=== PATIENT | female | born 1990 | race Caucasian/White ===

== ENCOUNTER → 2022-12-11 11:44 | Outpatient (CLI) | payer OTHER, SELFPAY ==
[2022-12-11 13:22] LABS: Appearance Urine UA CLEAR; Bilirubin Urine UA NEGATIVE (NEGATIVE); Glucose Urine UA NEGATIVE (Negative); Ketones Urine UA NEGATIVE (NEGATIVE); Leukocyte Esterase Urine UA NEGATIVE (NEGATIVE); Nitrite Urine UA NEGATIVE (Negative); Occult Blood Urine UA NEGATIVE (Negative); Protein Urine UA NEGATIVE (Negative); Specific Gravity Urine UA <=1.005 (1.000-1.035); Urobilinogen Urine UA 0.2 E.U./dL (0.2)
[2022-12-11 13:24] LABS: Color Urine UA STRAW; pH Urine UA 6.5 (4.5-8.0)
== END ==
PROVIDERS: PCP Nurse Practitioner Family; Visit Provider Family Medicine
DX: Z34.81 Encounter for supervision of other normal pregnancy, first trimester (principal)
CPT/HCPCS: 81003; 87086

== ENCOUNTER → 2022-12-11 12:38 | Outpatient (CLI) | payer OTHER, SELFPAY ==
[2022-12-11 13:56] LABS: Add Manual Diff / Slide Review NO; Basophils Absolute Auto 0 /uL (0-100); Basophils Percent Auto 0.3 % (0-2); Eosinophils Absolute Auto 100 /uL (0-450); Eosinophils Percent Auto 0.8 % (2-4); Hematocrit 41.4 % (36-46); Hemoglobin 14.2 g/dL (12.0-16.0); Lymphocytes Absolute Auto 2100 /uL (1100-4500); Lymphocytes Percent Auto 27.8 % (25-40); Mean Corpuscular HGB Conc 34.2 % (30-36); Mean Corpuscular Hemoglobin 30.5 PG (26-34); Mean Corpuscular Volume 89.3 fL (80-100); Monocytes Absolute Auto 500 /uL (0-900); Monocytes Percent Auto 6.1 % (3-14); Neutrophils Absolute Auto 4800 /uL (1500-7000); Platelet Count 227 X10^3/uL (150-400); Red Blood Cell Count 4.64 X10^6/uL (4.0-5.2); Red Cell Distribution Width 12.9 % (11.6-14.8); White Blood Cell Count 7.4 X10^3/uL (4.5-11.0)
[2022-12-11 14:06] LABS: BUN Creatinine Ratio 17.4 (6-22); Blood Urea Nitrogen 8 mg/dL (7-17); Calcium 10.6 mg/dL (8.4-10.2); Carbon Dioxide 24 mmol/L (22-32); Chloride 103 mmol/L (98-107); Estimated Glomerular Filt Rate > 60 mL/min (>60); Glucose 83 mg/dL (70-100); HEMOLYSIS < 15 (0-50); Potassium 3.8 mmol/L (3.4-5.1); Sodium 137 mmol/L (137-145)
[2022-12-11 18:28] LABS: HIV 1 & 2 Ab/Ag 4th Gen Combo NEGATIVE (NEGATIVE); Hep C Virus Ab w/Reflex Quant NEGATIVE s/c (NEGATIVE); Hepatitis B Surface Antigen NEGATIVE s/c (NEGATIVE); Rubella Antibody IgG 50.9 IU/mL (>15)
[2022-12-12 07:35] LABS: RPR Screen Non Reactive (Non Reactive)
[2022-12-12 08:10] LABS: Varicella IgG Antibody <135 index (Immune >165)
== END ==
PROVIDERS: PCP Nurse Practitioner Family; Referring Provider Family Medicine; Visit Provider Family Medicine
DX: Z34.81 Encounter for supervision of other normal pregnancy, first trimester (principal); E89.2 Postprocedural hypoparathyroidism
CPT/HCPCS: 36415; 80048; 80055; 81003; 86787; 86803; 86850; 86900; 86901; 87086; 87389

== ENCOUNTER → 2023-04-14 10:22 | Outpatient (CLI) | payer OTHER, SELFPAY ==
--- NOTE | 2023-04-14 10:23 | DI.US.S_ITS ---
PROCEDURE: US OB LIMITED INDICATIONS: LARGE GESTATIONAL AGE. PRIORS IN BRAZIL. OUTSIDE/PRIOR DATING DATA: Last menstrual period (LMP): Unknown LMP-based estimated date of delivery (HENRIETTA): Unknown First dating scan (date and location): Not available Estimated date of delivery (HENRIETTA) from first dating scan: Not available The calculations are made using the working HENRIETTA of 07/04/2023. TECHNIQUE: Real-time scanning was performed of the fetus, with image documentation and biometric measurements. Endovaginal scanning: Performed. COMPARISON: None. FINDINGS: General: A single living intrauterine gestation is present. Presentation: Vertex Placenta: Placental position is anterior, without previa. Amniotic fluid index: 19.9 cm, normal range is 5-24 cm. Single deepest vertical pocket is 6.5 cm. heart rate: 162 beats per minute. Maternal cervical canal: 2.4 cm long. Normal lower limit is 2.5 cm. biometrics: Biparietal diameter: 7.6 cm, 30 weeks, 3 days. Head circumference: 27.7 cm, 30 weeks, 2 days. Abdominal circumference: 25.0 cm, 29 weeks, 1 day. Femur length: 5.2 cm, 27 weeks, 6 days. Clinically estimated gestational age: 28 weeks, 3 days. Composite gestational age from present scan: 29 weeks, 3 days. Estimated weight and percentile: 1311 g, 57%. stomach, bilateral kidneys and urinary bladder are visualized and are within normal limits. IMPRESSION: 1. Single live intrauterine gestation with fetus in vertex presentation. Normal amount of amniotic fluid. heart rate is 162 beats per minute. Normal growth. Estimated weight is at 57%. 2. Mildly shortened maternal cervical canal length as above. Cervix is closed. Clinical correlation and follow-up is recommended. We strive to produce accurate, complete, and clear reports of imaging services. To assist us in improving patient care, this report was composed using standard report templates and voice recognition software. Therefore, it may contain abnormal punctuation, insertions and/or omissions. Occasional wrong-word or sound-alike substitutions may occur. Though we review the report and make efforts to correct it, we do recommend that the report be read carefully in proper context to recognize any text inaccuracies. Dictated by: Jeremias Mckenzie M.D. on 04/14/2023 at 10:23 Approved by: Jeremias Mckenzie M.D. on 04/14/2023 at 10:26
== END ==
PROVIDERS: PCP Nurse Practitioner Family; Referring Provider Family Medicine; Visit Provider Family Medicine
DX: O36.63X0 Maternal care for excessive fetal growth, third trimester, not applicable or unspecified (principal); Z3A.29 29 weeks gestation of pregnancy
CPT/HCPCS: 76815; 76817

== ENCOUNTER → 2023-04-16 09:52 | Outpatient (CLI) | payer OTHER, SELFPAY | PROVIDERS: PCP Nurse Practitioner Family; Visit Provider Family Medicine | DX: R39.9 Unspecified symptoms and signs involving the genitourinary system (principal) | CPT/HCPCS: 87086 ==

== ENCOUNTER → 2023-05-28 15:12 | Outpatient (CLI) | payer OTHER, SELFPAY | PROVIDERS: PCP Nurse Practitioner Family; Visit Provider Family Medicine | DX: O23.40 Unspecified infection of urinary tract in pregnancy, unspecified trimester (principal); Z3A.00 Weeks of gestation of pregnancy not specified | CPT/HCPCS: 87086; 87210 ==

== ENCOUNTER → 2023-06-11 12:30 | Outpatient (CLI) | payer OTHER, SELFPAY ==
[2023-06-12 13:05] LABS: Strep Grp B PCR NEG for Grp B Strep
== END ==
PROVIDERS: PCP Nurse Practitioner Family; Visit Provider Family Medicine
DX: Z34.83 Encounter for supervision of other normal pregnancy, third trimester (principal); Z3A.36 36 weeks gestation of pregnancy
CPT/HCPCS: 87653

== ENCOUNTER 2023-06-23 12:12 | Outpatient (CLI) | payer OTHER, SELFPAY ==
--- NOTE | 2023-06-23 12:32 | P.TNLD_ITS ---
Visit Information Visit Information Date of evaluation: 06/23/23 Primary OB Provider: Maribel Peterson Reason for Evaluation: Yes non-stress test Comments/Additional reasons for admission: 32yo at 38w4d here for NST for elevated blood pressure in clinic. No headaches, vision changes, LE edema, RUQ pain. She is feeling her baby move regularly. [facility] Medical History (Updated 06/23/23 @ 12:33 by Maribel Peterson MD) Parathyroid adenoma PCOS (polycystic ovarian syndrome) Surgical History (Updated 12/03/22 @ 08:38 by Kasia Doyle, RN) H/O parathyroidectomy (~10/15/22) H/O wrist surgery (~07/18/20) History of tonsillectomy and adenoidectomy (~2000) Hx of appendectomy (~2003) [place] teeth extracted (~2004) Family History (Updated 12/03/22 @ 08:42 by Kasia Doyle, RN) Father Diabetes mellitus Hypertriglyceridemia Mother Diabetes mellitus H/O bariatric surgery Hypertension Mental health disorder Family/Other Heart disease Heart attack Grandfather Heart disease Heart attack Grandfather Diabetes mellitus Family/Other Mental health disorder Social History marital status: number of children: 1 lives independently: Yes caregiver/support person: Yes [facility]) pets and animals: Yes (1 dog; aware of toxo precautions) education level: college (sp's degree) current occupational exposures/hazards: No special francis needs: No seatbelt use: always water heater temp set < 120 deg: Yes working smoke detector in home: Yes fire extinguisher in home: Yes carbon monox detector in home: Yes firearms in home: No do you feel safe at home: Yes Smoking Status: Never smoker second hand exposure: No alcohol intake: former (rarely when not ) during the past year weight has: decreased > 10 lbs (intentional w/ diet and exercise) daily servings fruits/ve-4 caffeine: Yes (aware of 200mg limit) frequency: 5-6 times per week duration: > 90 minutes/day Evaluation Evaluation Baseline heart rate: 150 Variability: Moderate (11-25) monitor accelerations: Present Monitor Decelerations: Absent Category of Tracing: Reactive Diagnosis, Plan/Disposition Final Diagnosis (1) Elevated blood pressure affecting in third trimester, antepartum: Status: Acute Plan/Disposition Plan: 32yo at 38w4d here for NST for elevated blood pressure in clinic. BP normal range in L&D. NST reactive. Stable for d/c home. OB Disposition: home
== END 2023-06-23 12:50 | disposition home or self-care (01) ==
LOC: LABOR 12:47 → OB 06-28 06:32
PROVIDERS: PCP Family Medicine; Referring Provider Family Medicine; Visit Provider Family Medicine
DX: O26.893 Other specified pregnancy related conditions, third trimester (principal); R03.0 Elevated blood-pressure reading, without diagnosis of hypertension; Z3A.38 38 weeks gestation of pregnancy
CPT/HCPCS: 59025; G0378; G0379

== ENCOUNTER 2023-07-01 10:19 | Inpatient (IN) | payer OTHER, SELFPAY ==
[2023-07-01] MEDS: OXYTOCIN PREMIX 30 UNIT/500 ML PLAST..BAG 220 UNIT IV (11:08)
--- NOTE | 2023-07-01 11:30 | P.HPOB_ITS ---
OB HPI Date/Time Date of admission: 07/01/23 History of Present Condition Chief complaint: OB CHECK HENRIETTA Calculator Estimated Delivery Date Method Current WG Current Estimate 07/04/23 Manual 39w 5d Final HENRIETTA - HARSH Other Estimates 06/21/23 LMP (Certain) 41w 4d 07/04/23 Ultrasound #1 39w 5d Estimated Gestational Age (weeks): 39w4d : 2 Para: 1 Narrative: Pt is a 32yo at 39w4d who presented with regular painful contractions. Contractions started approximately 2 hrs prior to presentation. No vaginal bleeding or LOF. She is feeling her baby move regularly. No complications with . care: good care, initiated at week # (10) and pounds weight gain (17) Dating criteria OB: based on 1st trimester US only Ultrasounds: normal 1st trimester US and normal mid trimester US Obstetrical complications: none Medical complications OB: none Preadmission Labs Last OB Lab Results: Blood Type A Positive 12/11/22 12:53 Antibody Screen Negative 12/11/22 12:53 Hematocrit 41.4 % (36-46) 12/11/22 12:53 Hemoglobin 14.2 g/dL (12.0-16.0) 12/11/22 12:53 Hepatitis B Surface Antigen Negative s/c (NEGATIVE) 12/11/22 12 :53 Hepatitis C Antibody Negative s/c (NEGATIVE) 12/11/22 12:53 Rubella Antibody 50.9 IU/mL (>15) 12/11/22 12:53 Varicella-Zoster IgG Antibody <135 index (Immune >165) L 12:53 Group B Streptococcus (PCR) Neg for grp b strep 06/11/23 12:30 -: Urine: negative External Labs -: Urine: negative Prior (ies) Past Pregnancies Del. Date GA/Weeks Labor Lgth Wt Sex Route Outcome Anesthesia Place Delv Breastfeed Preg Comp Name 01/20/11 38+ 9 8 lb 1 oz Male vaginal live - full ter [facility] 9 months other [place] Delivery Date: 01/20/11 Last Updated by: Kasia Doyle RN 2-vessel cord Evaluation Evaluation Baseline heart rate: 140 Variability: Moderate (11-25) monitor accelerations: Present Monitor Decelerations: Absent Contraction Frequency (minutes): 2 Uterine Contraction Intensity: Strong/Firm Status: Category l Dilation (cm): 10 Effacement (%): 100 station: +1 [facility] Medical History (Updated 06/23/23 @ 12:33 by Maribel Peterson MD) Parathyroid adenoma PCOS (polycystic ovarian syndrome) Surgical History (Updated 12/03/22 @ 08:38 by Kasia Doyle RN) H/O parathyroidectomy (~10/15/22) H/O wrist surgery (~07/18/20) History of tonsillectomy and adenoidectomy (~2000) Hx of appendectomy (~2003) [place] teeth extracted (~2004) Family History (Updated 12/03/22 @ 08:42 by Kasia Doyle, MOR) Father Diabetes mellitus Hypertriglyceridemia Mother Diabetes mellitus H/O bariatric surgery Hypertension Mental health disorder Family/Other Heart disease Heart attack Grandfather Heart disease Heart attack Grandfather Diabetes mellitus Family/Other Mental health disorder Social History marital status: number of children: 1 lives independently: Yes caregiver/support person: Yes housing: [facility]) pets and animals: Yes (1 dog; aware of toxo precautions) education level: college (sp's degree) current occupational exposures/hazards: No special francis needs: No seatbelt use: always water heater temp set < 120 deg: Yes working smoke detector in home: Yes fire extinguisher in home: Yes carbon monox detector in home: Yes firearms in home: No do you feel safe at home: Yes Smoking Status: Never smoker second hand exposure: No alcohol intake: former (rarely when not ) during the past year weight has: decreased > 10 lbs (intentional w/ diet and exercise) daily servings fruits/ve-4 caffeine: Yes (aware of 200mg limit) frequency: 5-6 times per week duration: > 90 minutes/day Meds Home Medications and Allergies Home Medications Medication Instructions Recorded Confirmed Type cholecalciferol (vitamin D3) 25 25 mcg PO DAILY 12/03/22 07/01/23 History mcg (1,000 unit) capsule prenat.vits,verona,[id number] 1 tab PO DAILY 12/03/22 07/01/23 History glucometer test strips #14 ea 04/20/23 07/01/23 Rx lancet #14 ea 04/20/23 07/01/23 Rx metronidazole 500 mg tablet 500 mg PO BID #14 tabs 04/30/23 07/01/23 Rx triamcinolone acetonide 0.1 % 1 applic topical BID #80 grams 05/14/23 07/01/23 Rx topical ointment fluconazole 150 mg tablet 150 mg PO DAILY #1 tab 05/31/23 07/01/23 Rx (Diflucan) hands-free electric breast pump #1 ea 06/07/23 07/01/23 Rx Allergies Allergy/AdvReac Type Severity Reaction Status Date / Time lactose AdvReac Mild Headache Verified 06/23/23 11:43 OB Exam Narrative Exam Narrative: Gen: NAD, laying in bed moaning CV: RRR, no murmurs Resp: clear to auscultation bilaterally Abd: soft, nontender, gravid Ext: no edema Assessment and Plan Assessment and Plan Assessment and Plan narrative: 32yo at 39w4d here in active labor. GBS negative, Rh positive. - Expectant management, anticipate - FHT reassuring - GBS negative, no prophylaxis indicated - Will start pushing now
--- NOTE | 2023-07-01 11:31 | PM.OBPRVD ---
Labor & Delivery Delivery date: 07/01/23 Intrapartal Events: Precipitous Labor < 3 hours Cervical ripening method: none Induction method: none Delivery augmentation: rupture of membranes Delivery monitor: external FHT and external uterine Route of delivery: Episiotomy description: None L&D Laceration Description: Labial Quantitative Blood Loss: 300 Anesthesia Type: Other (Nitrous oxide) Complications: None Narrative: PROCEDURE: at 39w4d presented in active labor and was admitted to Labor and Delivery. The patient progressed through the 1st stage over 2 hours. ROM occured at 10:58 with clear fluid. Pain was controlled with nitrous oxide and natural methods. The patient progressed through the 2nd stage over 18 minutes and delivered a viable male with APGARs 9/9 at 11:03 via without complications. The cord was cut and clamped after it stopped pulsating. The placenta delivered with gentle cord traction, and appeared complete. The perineum and vagina were inspected with right labial laceration noted but not repaired as it was hemostatic. Needle and sponge counts were correct.? The vagina was inspected and no items were left in situ. Jordyn was doing well with Artur, her and her at bedside. PREPROCEDURE DIAGNOSIS: Intrauterine at 39w4d GBS negative RH positive POSTPROCEDURE DIAGNOSIS: Intrauterine at 39w4d, delivered Same as preprocedure Baby 1: Infant gender: Male Presentation: vertex Position: Right Occiput Anterior Placenta delivery description: Spontaneous Cord Vessel Description: 3 Vessels score (1 min): 9 score (5 min): 9 weight: 9 lb 2.528 oz Plan for aftercare: Routine care
[2023-07-01] MEDS: IBUPROFEN 600 MG TABLET PO ×2 (12:28→19:11)
[2023-07-01 13:01] VITALS: BP 138/85
[2023-07-01] MEDS: ACETAMINOPHEN 325 MG TABLET 650 MG PO ×2 (16:30→22:46)
[2023-07-02] MEDS: IBUPROFEN 600 MG TABLET PO ×3 (01:01→14:04)
[2023-07-02] MEDS: ACETAMINOPHEN 325 MG TABLET 650 MG PO ×2 (04:25→10:02)
[2023-07-02] MEDS: DOCUSATE 100 MG CAPSULE PO (09:36)
[2023-07-02] MEDS: PRENATAL VIT,CALC/IRON/FOLIC 1 TABLET 1 TAB PO (09:36)
--- NOTE | 2023-07-02 12:37 | P.DS_ITS ---
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 AROM was performed with clear fluid minutes prior to delivery. There were no significant lacerations. , there were no complications. At the time of discharge she was voiding, ambulating, and passing flatus without difficulty. Her lochia was decreasing appropriately. Her pain was well controlled. She will f/u in 6 weeks for check. She is with good latch. She is undecided regarding contraception. Peripartum Data Infant Delivery Method: Natural Vaginal Laceration Description: Labial Episiotomy description: None Procedures: Spontaneous vaginal delivery complications: none 1: Gender: Male Disposition of : home Discharge Diagnosis (1) Spontaneous vaginal delivery: Status: Acute Time Spent with Patient Time attestation: Total time spent providing and/or coordinating discharge services: Exam Narrative Exam Narrative: Gen: NAD, sitting comfortably in bed, appears well CV: RRR, no murmurs Resp: clear to auscultation bilaterally Abd: soft, appropriately tender, fundus firm and below the umbilicus, nondistended Ext: no edema Discharge Plan Discharge Plan Patient Disposition: Home Discharge orders & Medications Prescriptions: New acetaminophen 325 mg Tablet 650 mg PO Q6HR PRN (Reason: Pain, Mild (1-3)) Qty: 30 0RF docusate sodium 100 mg Capsule 100 mg PO DAILY Qty: 30 0RF ibuprofen 600 mg Tablet 600 mg PO Q6HR PRN (Reason: Pain, Mild (1-3)) Qty: 30 0RF Continued prenat.vits,verona,[id number] Tablet 1 tab PO DAILY cholecalciferol (vitamin D3) 25 mcg (1,000 unit) capsule 25 mcg PO DAILY Discontinued metronidazole 500 mg tablet 500 mg PO BID Qty: 14 0RF triamcinolone acetonide 0.1 % ointment 1 applic topical BID Qty: 80 0RF Rx Instructions: please use this in replacement of the rx of 0.05% strength fluconazole [Diflucan] 150 mg tablet 150 mg PO DAILY Qty: 1 0RF No Action (DME) glucometer test strips See Rx Instructions .Route .MEDSUPPLY Qty: 14 0RF Rx Instructions: test twice daily for two weeks (DME) lancet See Rx Instructions .Route .MEDSUPPLY Qty: 14 0RF Rx Instructions: to be tested twice daily for 2 weeks (DME) hands-free electric breast pump See Rx Instructions .Route .MEDSUPPLY Qty: 1 0RF Rx Instructions: Due date 07/04/23 Follow up/Referrals: Maribel Peterson MD [Primary Care Provider] - 08/11/23 2:30 pm Diet/Activity/Treatments Diet: Diet as Tolerated and Regular Skin/Wound/Dressing Care Report to your healthcare provider any signs of infection, such as:: chills, fever, increased pain and unusual drainage Visit Report/Discharge Packet Instructions: DI for Labor and Delivery, Vaginal Stand Alone Forms: Patient Portal/API, Stroke Signs & Symptoms Discharge Data Primary Care Provider: Maribel Peterson
[2023-07-02 15:25] VITALS: BP 120/78; PULSE 80; RESP 16; TEMP 36.9
== END 2023-07-02 17:35 | disposition home or self-care (01) | DRG 807 ==
PROVIDERS: Admitting Provider Family Medicine; PCP Family Medicine; Referring Provider Family Medicine; Visit Provider Family Medicine
DX: O62.3 Precipitate labor (principal); Z37.0 Single live birth; Z3A.39 39 weeks gestation of pregnancy
CPT/HCPCS: 36415; 59050; 59410; G0379; J2590

== ENCOUNTER → 2023-07-06 12:11 | Outpatient (CLI) | payer OTHER, SELFPAY ==
[2023-07-06 12:56] LABS: Add Manual Diff / Slide Review NO; Basophils Absolute Auto 0 /uL (0-100); Basophils Percent Auto 0.7 % (0-2); Eosinophils Absolute Auto 100 /uL (0-450); Eosinophils Percent Auto 1.8 % (2-4); Hematocrit 29.7 % (36-46); Hemoglobin 10.4 g/dL (12.0-16.0); Lymphocytes Absolute Auto 1700 /uL (1100-4500); Mean Corpuscular HGB Conc 34.8 % (30-36); Mean Corpuscular Hemoglobin 30.2 PG (26-34); Mean Corpuscular Volume 86.6 fL (80-100); Monocytes Absolute Auto 400 /uL (0-900); Monocytes Percent Auto 5.9 % (3-14); Neutrophils Absolute Auto 4200 /uL (1500-7000); Neutrophils Percent Auto 65.6 % (50-75); Platelet Count 219 X10^3/uL (150-400); Red Blood Cell Count 3.43 X10^6/uL (4.0-5.2); Red Cell Distribution Width 13.8 % (11.6-14.8); White Blood Cell Count 6.4 X10^3/uL (4.5-11.0)
[2023-07-06 13:52] LABS: Alanine Aminotransferase 54 IU/L (<35); Albumin 3.3 g/dL (3.5-5.0); Albumin Globulin Ratio 1.1 (1.0-2.8); Alkaline Phosphatase 94 U/L (38-126); Aspartate Aminotransferase 34 IU/L (14-36); BUN Creatinine Ratio 19.2 (6-22); Bilirubin Total 0.2 mg/dL (0.2-1.3); Blood Urea Nitrogen 10 mg/dL (7-17); Carbon Dioxide 24 mmol/L (22-32); Chloride 108 mmol/L (98-107); Estimated Glomerular Filt Rate > 60 mL/min (>60); Globulin 2.9 g/dL (1.7-4.1); Glucose 89 mg/dL (70-100); HEMOLYSIS < 15 (0-50); Potassium 4.1 mmol/L (3.4-5.1); Sodium 136 mmol/L (137-145); Total Protein 6.2 g/dL (6.3-8.2)
[2023-07-06 17:00] LABS: Creatinine Urine Random 27.1 mg/dL
[2023-07-06 17:04] LABS: Microalbumi Creatinin Ratio Ur 73.8 ug/mg CR (<30)
[2023-07-07 18:34] LABS: Creatinine Urine Random 27.8 mg/dL; Protein (Total) Urine Random 20 mg/dL (0-12); Protein Creatinine Ratio Urine 0.71 GRAM/24H
== END ==
PROVIDERS: PCP Family Medicine; Referring Provider Family Medicine; Visit Provider Family Medicine
DX: O14.95 Unspecified pre-eclampsia, complicating the puerperium (principal)
CPT/HCPCS: 36415; 80053; 82043; 82570; 84156; 85025

== ENCOUNTER 2023-07-07 21:57 | Emergency (ER) | payer OTHER, MEDICAID, SELFPAY ==
[2023-07-07 22:01] VITALS: BP 151/91; PULSE 66; RESP 18; TEMP 36.9; O2SAT 99
[2023-07-07 22:10] VITALS: BP 147/94
[2023-07-07 22:53] LABS: Add Manual Diff / Slide Review NO; Basophils Absolute Auto 0 /uL (0-100); Basophils Percent Auto 0.8 % (0-2); Eosinophils Absolute Auto 100 /uL (0-450); Eosinophils Percent Auto 1.9 % (2-4); Hematocrit 29.3 % (36-46); Hemoglobin 10.2 g/dL (12.0-16.0); Lymphocytes Absolute Auto 2300 /uL (1100-4500); Lymphocytes Percent Auto 36.4 % (25-40); Mean Corpuscular HGB Conc 34.8 % (30-36); Mean Corpuscular Hemoglobin 30.3 PG (26-34); Mean Corpuscular Volume 86.9 fL (80-100); Monocytes Absolute Auto 400 /uL (0-900); Monocytes Percent Auto 6.4 % (3-14); Neutrophils Absolute Auto 3400 /uL (1500-7000); Neutrophils Percent Auto 54.5 % (50-75); Platelet Count 234 X10^3/uL (150-400); Red Blood Cell Count 3.37 X10^6/uL (4.0-5.2); Red Cell Distribution Width 13.7 % (11.6-14.8); White Blood Cell Count 6.2 X10^3/uL (4.5-11.0)
[2023-07-07 22:59] LABS: Alanine Aminotransferase 49 IU/L (<35); Albumin 3.3 g/dL (3.5-5.0); Albumin Globulin Ratio 1.1 (1.0-2.8); Alkaline Phosphatase 89 U/L (38-126); Aspartate Aminotransferase 31 IU/L (14-36); BUN Creatinine Ratio 14.5 (6-22); Bilirubin Total 0.2 mg/dL (0.2-1.3); Blood Urea Nitrogen 10 mg/dL (7-17); Calcium 8.8 mg/dL (8.4-10.2); Carbon Dioxide 24 mmol/L (22-32); Chloride 106 mmol/L (98-107); Estimated Glomerular Filt Rate > 60 mL/min (>60); Glucose 94 mg/dL (70-100); HEMOLYSIS < 15 (0-50); Potassium 3.9 mmol/L (3.4-5.1); Sodium 134 mmol/L (137-145); Total Protein 6.3 g/dL (6.3-8.2)
[2023-07-07 23:36] LABS: RBC Urine 30-100/HPF (0-5/HPF)
[2023-07-07 23:37] VITALS: BP 135/70; PULSE 63; RESP 16; TEMP 36.6; O2SAT 97
[2023-07-07 23:37] LABS: Bacteria Urine Few (2-10); Culture Indicated Urine Specimen Cultured; Squamous Epithelial Cell Urine 0-1 /HPF (0-5/HPF); Transitional Epi Cells Urine 1-5/HPF (0-5/HPF); WBC Urine 10-30/HPF (0-5/HPF)
[2023-07-08] MEDS: cefTRIAXone 1,000 MG in SODIUM CHLORIDE 0.9% 100 ML 200 MG IV (00:07)
[2023-07-08 00:21] VITALS: BP 146/86; PULSE 57; RESP 16; TEMP 36.7; O2SAT 97
--- NOTE | 2023-07-08 00:25 | ED.ABDPAIN ---
HPI - Abdominal Pain General Chief Complaint: Abdominal Pain Stated Complaint: body shakes, 6 days post Time Seen by Provider: 07/07/23 23:56 Source: patient Mode of arrival: Ambulatory History of Present Illness HPI narrative: Patient is 33-year-old female , post day 6. Presents today with body shakes abdominal pain. She was noted to be mildly hypertensive with OB in instructed to take her blood pressure at home. She reports that she is having some sharp shooting pain across her lower abdomen. She reports that the bleeding has basically resolved. She is had some sweats and chills but is afebrile here. Not needing anything for pain. She has some burning sensation with urination. Related Data Home Medications Medication Instructions Recorded Confirmed cholecalciferol (vitamin D3) 25 25 mcg PO DAILY 12/03/22 07/01/23 mcg (1,000 unit) capsule prenat.vits,verona,[id number] 1 tab PO DAILY 12/03/22 07/01/23 Previous Rx's Medication Instructions Recorded glucometer test strips #14 ea 04/20/23 lancet #14 ea 04/20/23 hands-free electric breast pump #1 ea 06/07/23 acetaminophen 325 mg tablet 650 mg PO Q6HR PRN Pain, Mild 07/02/23 (1-3) #30 tabs docusate sodium 100 mg capsule 100 mg PO DAILY #30 caps 07/02/23 ibuprofen 600 mg tablet 600 mg PO Q6HR PRN Pain, Mild 07/02/23 (1-3) #30 tabs cephalexin 500 mg capsule 500 mg PO BID 7 days #14 caps 07/08/23 Allergies Allergy/AdvReac Type Severity Reaction Status Date / Time lactose AdvReac Mild Headache Verified 06/23/23 11:43 Review of Systems Review of Systems ROS Unobtainable: All systems reviewed & are unremarkable except as noted in HPI and below Patient History Medical History (Updated 07/08/23 @ 00:40 by Barbara Garner DO) Parathyroid adenoma PCOS (polycystic ovarian syndrome) Surgical History (Updated 12/03/22 @ 08:38 by Kasia Doyle RN) H/O parathyroidectomy (~10/15/22) H/O wrist surgery (~07/18/20) History of tonsillectomy and adenoidectomy (~2000) Hx of appendectomy (~2003) [place] teeth extracted (~2004) Family History (Updated 12/03/22 @ 08:42 by Kasia Doyle RN) Father Diabetes mellitus Hypertriglyceridemia Mother Diabetes mellitus H/O bariatric surgery Hypertension Mental health disorder Family/Other Heart disease Heart attack Grandfather Heart disease Heart attack Grandfather Diabetes mellitus Family/Other Mental health disorder Social History marital status: number of children: 1 lives independently: Yes caregiver/support person: Yes housing: condominium ([facility]) pets and animals: Yes (1 dog; aware of toxo precautions) education level: college (sp's degree) current occupational exposures/hazards: No special francis needs: No seatbelt use: always water heater temp set < 120 deg: Yes working smoke detector in home: Yes fire extinguisher in home: Yes carbon monox detector in home: Yes firearms in home: No do you feel safe at home: Yes Smoking Status: Never smoker second hand exposure: No alcohol intake: former (rarely when not ) during the past year weight has: decreased > 10 lbs (intentional w/ diet and exercise) daily servings fruits/ve-4 caffeine: Yes (aware of 200mg limit) frequency: 5-6 times per week duration: > 90 minutes/day Smoking Status: Never smoker Substance Use Type: does not use Exam Initial Vital Signs Initial Vital Signs: Vital Signs Temperature 98.4 F 07/07/23 22:01 Pulse Rate 66 07/07/23 22:01 Respiratory Rate 18 07/07/23 22:01 Blood Pressure 151/91 H 07/07/23 22:01 Pulse Oximetry 99 07/07/23 22:01 Oxygen Delivery Method Room Air 07/07/23 22:01 GENERAL: Alert well-appearing 33-year-old female HEENT: Head atraumatic,EOMI, pupils reactive, face symmetric, moist mucous membranes CARDIOVASCULAR: Regular rate and rhythm without murmurs, rubs or gallops. RESPIRATORY: Breath sounds equal bilaterally, no wheezes rales or rhonchi. ABDOMEN: Soft, minimal lower abdominal pain Normoactive bowel sounds all 4 quadrants. No guarding or rebound. : No CVA tenderness EXTREMITIES: Normal range of motion, no clubbing or edema. Neurovascularly intact NEUROLOGICAL: Alert and oriented x4. SKIN: Warm, dry, no laceration, no petechiae, no rashes or lesions. Course Orders Ordered: ED Orders 07/07/23 22:35 CBC Auto Diff [Complete Blood Count AUTO DIFF] Stat CMP [Comprehensive Metabolic Panel] Stat 07/07/23 22:40 Urine Culture Stat Urine Microscopic Stat Discontinued Medications Ceftriaxone Sodium 1,000 mg/ (Sodium Chloride) 100 mls @ 200 mls/hr IV NOW ONE Stop: 07/07/23 23:57 Last Infusion: 07/08/23 00:43 Dose: 0 mls/hr Documented By: Admin: 07/08/23 00:07 Dose: 200 mls/hr Documented By: ANDREW Vital Signs Vital signs: Vital Signs - 8 hr 07/07/23 22:01 07/07/23 22:10 07/07/23 23:37 Temperature 98.4 F 97.8 F Pulse Rate 66 63 Respiratory Rate 18 16 Blood Pressure 151/91 H 147/94 H 135/70 Pulse Oximetry 99 97 Oxygen Delivery Method Room Air Room Air 07/08/23 00:21 Temperature 98.1 F Pulse Rate 57 L Respiratory Rate 16 Blood Pressure 146/86 H Pulse Oximetry 97 Oxygen Delivery Method Room Air MDM - Abdominal Pain Lab Data 07/07/23 22:35 07/07/23 22:35 Labs: Lab Results 07/07/23 07/07/23 07/07/23 Range/Units 22:35 22:35 22:40 WBC 6.2 (4.5-11.0) X10^3/uL RBC 3.37 L (4.0-5.2) X10^6/uL Hgb 10.2 L (12.0-16.0) g/dL Hct 29.3 L (36-46) % MCV 86.9 (80-100) fL MCH 30.3 (26-34) PG MCHC 34.8 (30-36) % RDW 13.7 (11.6-14.8) % Plt Count 234 (150-400) X10^3/uL Neut % (Auto) 54.5 (50-75) % Lymph % (Auto) 36.4 (25-40) % [place] % (Auto) 6.4 (3-14) % Eos % (Auto) 1.9 L (2-4) % Baso % (Auto) 0.8 (0-2) % Neut # (Auto) 3400 (8361-1195) /uL Lymph # (Auto) 2300 (4579-0131) /uL [place] # (Auto) 400 (0-900) /uL Eos # (Auto) 100 (0-450) /uL Baso # (Auto) 0 (0-100) /uL Sodium 134 L (137-145) mmol/L Potassium 3.9 (3.4-5.1) mmol/L Chloride 106 (98-107) mmol/L Carbon Dioxide 24 (22-32) mmol/L BUN 10 (7-17) mg/dL Creatinine 0.69 (0.52-1.04) mg/dL Estimated GFR > 60 (>60) mL/min BUN/Creatinine Ratio 14.5 (6-22) Glucose 94 (70-100) mg/dL Calcium 8.8 (8.4-10.2) mg/dL Total Bilirubin 0.2 (0.2-1.3) mg/dL AST 31 (14-36) IU/L ALT 49 H (<35) IU/L Alkaline Phosphatase 89 (38-126) U/L Total Protein 6.3 (6.3-8.2) g/dL Albumin 3.3 L (3.5-5.0) g/dL Globulin 3.0 (1.7-4.1) g/dL Albumin/Globulin Ratio 1.1 (1.0-2.8) Urine RBC 30-100/hpf H (0-5/HPF) Urine WBC 10-30/hpf H (0-5/HPF) Ur Squamous Epith Cells 0-1 /hpf (0-5/HPF) Ur Transition Epith Cell 1-5/hpf (0-5/HPF) Urine Bacteria Few (2-10) H (None) Ur Culture Indicated? Specimen cultured Point of care testing: Urine Dip Bedside Urine Glucose Negative Bedside Urine Bilirubin - Negative Bedside Urine Ketone - Negative Urine Specific [place] 1.010 Bedside Urine Occult Blood +++ Bedside Urine pH 6 Bedside Urine Protein - Negative Bedside Urine Urobilinogen - Negative Bedside Urine Nitrite - Negative Bedside Urine Leukocytes ++ 125 Esterase MDM Narrative Medical decision making narrative: Patient healthy 33-year-old female presenting 6 days post . She does have leukocytes and bacteria in her urine consistent with UTI. She is noted to have elevated blood pressure which is fairly consistent in the 140s 150s. However she has no other lab abnormalities to suggest preeclampsia. She is not have headache or visual changes. Likely more of a gestational hypertension. According to notes her OB is where the blood pressure who is actually instructed today by the automotive internet sales consultant to monitor her blood pressure. Given 1 dose of Rocephin and she has no evidence of sepsis. I suspect more UTI rather than an endometritis. Discharge Plan Departure Patient Disposition: Home Clinical Impression: UTI (urinary tract infection), Hypertension in , condition Instructions: High Blood Pressure, DI for Urinary Tract Infection (UTI) Activity Restrictions/Additional Instructions: *You have been diagnosed with UTI, hypertension *What to do: At this time symptoms are likely related to bladder infection. You were given 1 dose of IV antibiotics you can start the pills tomorrow. Please continue to monitor your blood pressure 1 to 2 times daily and follow-up with Dr. Platt as scheduled on Wednesday *Continue to take medications as directed Keflex 500 mg twice a day for 5 days *Follow up with your primary care provider in 2-3 days or call [phone] *Return to ER if you should have increasing pain fever, or any new, worsening or concerning symptoms Prescriptions: New cephalexin 500 mg capsule 500 mg PO BID 7 Days Qty: 14 0RF No Action (DME) glucometer test strips See Rx Instructions .Route .MEDSUPPLY Qty: 14 0RF Rx Instructions: test twice daily for two weeks (DME) lancet See Rx Instructions .Route .MEDSUPPLY Qty: 14 0RF Rx Instructions: to be tested twice daily for 2 weeks (DME) hands-free electric breast pump See Rx Instructions .Route .MEDSUPPLY Qty: 1 0RF Rx Instructions: Due date 07/04/23 prenat.vits,verona,[id number] Tablet 1 tab PO DAILY cholecalciferol (vitamin D3) 25 mcg (1,000 unit) capsule 25 mcg PO DAILY acetaminophen 325 mg Tablet 650 mg PO Q6HR PRN (Reason: Pain, Mild (1-3)) Qty: 30 0RF docusate sodium 100 mg Capsule 100 mg PO DAILY Qty: 30 0RF ibuprofen 600 mg Tablet 600 mg PO Q6HR PRN (Reason: Pain, Mild (1-3)) Qty: 30 0RF Referrals: Maribel Peterson MD [Primary Care Provider] - Stand Alone Forms: Patient Portal/API
== END 2023-07-08 01:04 | disposition home or self-care (01) ==
PROVIDERS: Emergency Provider Emergency Medicine; PCP Family Medicine
DX: O16.5 Unspecified maternal hypertension, complicating the puerperium (principal); N39.0 Urinary tract infection, site not specified
CPT/HCPCS: 36415; 80053; 81003; 81015; 85025; 87086; 96365; 99284; J0696

== ENCOUNTER → 2023-10-19 09:34 | Outpatient (CLI) | payer OTHER, MEDICAID, SELFPAY | PROVIDERS: Family Provider Family Medicine; PCP Family Medicine; Visit Provider Family Medicine | DX: N39.0 Urinary tract infection, site not specified (principal) | CPT/HCPCS: 81002; 87086 ==

== ENCOUNTER → 2023-10-26 10:30 | Outpatient (CLI) | payer OTHER, MEDICAID, SELFPAY ==
--- NOTE | 2023-10-26 10:31 | DI.US.S_ITS ---
PROCEDURE: US PELVIC COMPLETE INDICATIONS: PELVIC TENDERNESS TECHNIQUE: Real-time scanning was performed of the pelvic organs, with image documentation. Additional endovaginal scanning was necessary due to incomplete visualization of the adnexal and endometrial structures by transabdominal scanning. COMPARISON: None. FINDINGS: Uterus: Uterus is anteverted and normal in size at 6.2 x 4.6 x 3.8 cm. The myometrium is homogeneous. The endometrium measures 7 mm combined thickness. Numerous small calcifications can be seen along the endometrium. The uterus demonstrates generalized increased vascularity, with increased vascularity also seen along the cervix. No abnormal vascularity can be seen along the endometrial stripe itself. Incidental note is made of nabothian cysts. Ovaries: The right ovary measures 2.7 x 1.7 x 1.9 cm, with a calculated ovarian volume of 4.5 cc. The left ovary measures 3.1 x 1.6 x 1.8 cm, with a calculated ovarian volume of 4.4 cc. The ovaries have a normal sonographic appearance. Less than 12 follicles can be seen in each ovary. No adnexal masses are seen. Other: Fluid is seen within the facet joints themselves. IMPRESSION: Hypervascular mammary trim, with a hypervascular uterine cervix. Punctate calcification noted along the endometrial stripe. We strive to produce accurate, complete, and clear reports of imaging services. To assist us in improving patient care, this report was composed using standard report templates and voice recognition software. Therefore, it may contain abnormal punctuation, insertions and/or omissions. Occasional wrong-word or sound-alike substitutions may occur. Though we review the report and make efforts to correct it, we do recommend that the report be read carefully in proper context to recognize any text inaccuracies. Dictated by: Gildardo Mcnally M.D. on 10/26/2023 at 12:02 Approved by: Gildardo Mcnally M.D. on 10/26/2023 at 12:04
== END ==
PROVIDERS: Family Provider Family Medicine; PCP Family Medicine; Referring Provider Family Medicine; Visit Provider Family Medicine
DX: R10.2 Pelvic and perineal pain (principal); N85.9 Noninflammatory disorder of uterus, unspecified
CPT/HCPCS: 76830; 76856

== ENCOUNTER → 2024-01-07 16:46 | Outpatient (CLI) | payer OTHER, MEDICAID, SELFPAY ==
[2024-01-07 16:56] LABS: Appearance Urine UA CLEAR; Bilirubin Urine UA NEGATIVE (NEGATIVE); Color Urine UA YELLOW; Glucose Urine UA NEGATIVE (Negative); Ketones Urine UA NEGATIVE (NEGATIVE); Leukocyte Esterase Urine UA TRACE (NEGATIVE); Nitrite Urine UA NEGATIVE (Negative); Occult Blood Urine UA NEGATIVE (Negative); Protein Urine UA NEGATIVE (Negative); Urobilinogen Urine UA 0.2 E.U./dL (0.2)
[2024-01-07 17:03] LABS: Bacteria Urine Occasional (0-1); Culture Indicated Urine Specimen Cultured; RBC Urine 0-1/HPF (0-5/HPF); Squamous Epithelial Cell Urine 5-10 /HPF (0-5/HPF); Urine Volume 10mL (spun); WBC Urine 1-5/HPF (0-5/HPF)
== END ==
PROVIDERS: Family Provider Family Medicine; PCP Family Medicine; Visit Provider Nurse Practitioner Family
DX: R30.9 Painful micturition, unspecified (principal); N89.8 Other specified noninflammatory disorders of vagina
CPT/HCPCS: 81001; 81002; 87086; 87210

== ENCOUNTER 2024-03-09 11:15 | Outpatient (RCR) | payer OTHER, MEDICAID, SELFPAY ==
--- NOTE | 2023-10-11 16:44 | PT.OPPOC ---
Physical, Occupational & Speech Therapy At [facility] Current Diagnoses Muscle weakness (generalized) (10/11/23) Stress incontinence (female) (male) (10/11/23) Other female genital prolapse (10/11/23) Pelvic and perineal pain (10/11/23) Visit Care Team Role Provider Type Maribel Peterson MD Family Provider Physician Primary Care Provider Specialty: Family Practice Address: [address] [place] [address], [place], [address] Email: [email or web address] Rehana Valles PA-C Attending Provider Advanced Marine Animal Trainer Referring Provider Specialty: Medical Address: [address] [place] [address], [address], [place], [address] Email: [email or web address] Plan Of Care PT-OP-T Assessment and Plan Start: 10/08/23 19:49 Freq: Status: Active Protocol: Document 10/11/23 11:27 LRN (Rec: 10/11/23 12:22 LRN [id number]) Physical Therapy Assessment Rehab Potential Rehabilitation Potential Good Evaluation Complexity Number of Personal Factors/Comorbidities 1-2 Number of Body Systems Impaired 4 or More Clinical Presentation at Evaluation Evolving Impairments Impairments Activity Tolerance,Functional Mobility,Pain,Posture,ROM, Sensation,Soft Tissue Mobility ,Strength Goals Four Impairment Diastasis Rectus (DR) Impairment Umbilicus 2 above: Closed Umbilicus 1 above: 1.5 finger widths, shallow Umbilicus Umbilicus: 1 below: 1.5 finger widths, shallow Umbilicus: 2 below: 0.5 finger widths, shallow Umbilicus: 3 below: Closed. Short Term Goal (STG) Pt educated in self care to reduce DR (towel support for transfers). STG Duration 2 wks-10/19/23 Fdc Goal (LTG) Decrease signs of DR. LTG Duration 9 wks-12/10/23 Three Impairment PF pain limiting ability to return to prior level of function of exercise. Impairment Pelvic Floor pain with walking and crossing legs. Short Term Goal (STG) Eliminate pelvic pain with crossing legs and walking. STG Duration 4 wks-12/08/23 Milk Handler Goal (LTG) Start light exercise (walking w/o urinary leakage). Start back to exercise walking on level w/o PF pain. LTG Duration 9 wks-12/10/23 Two Impairment Urinary incontinence Impairment Urinary leakage with light and vigorous activity (brisk walking or on uneven ground). Short Term Goal (STG) Pt will be educated in urinary delay techinque STG Duration 4 wks-11/05/23 Fdc Goal (LTG) Improve control over urinary incontinence with elimination of urinary leakage with walking. LTG Duration 9 wks-12/10/23 One Impairment Pt lacks an independent self care HEP. Short Term Goal (STG) Pt educated in proper transfers to lessen core abdominal pressure. STG Duration 3 wks-10/29/23 Milk Handler Goal (LTG) Pt will be independent in a self care HEP for PF strengthening. LTG Duration 9 wks-12/10/23 Assessment Summary Assessment Pt is a 33 yo female who presents with PF pain with tightness of her PF muscles, red irritated PF tissues, and current comorbidity of UTI. Her PUF questionnare score indicates 75% positive for interstitial cystitis, but her responses may be more due to her current UTI condition and affects of being post- from a vaginal delivery. 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 She has tightness of the L side of PF tight and tender > R. Her progress is expected to be slow due to her current cormobidity (UTI), her many areas of dysfunction, and considering she is also working. The pt is limited in her therapy visits; therefore I will try to progress the pt towards independent care, with extension of her therapy into the new year. The pt will benefit from skilled physical therapy to work towards achieving the above stated goals. Physical Therapy Plan Frequency and Duration Frequency of Treatment 1x/Week Duration of treatment (weeks) 9 Plan of Care Start Date 10/11/23 Plan of Care End Date 12/10/23 Therapeutic Interventions Therapeutic Interventions Home Exercise Program,Joint Mobilizations,Manual Therapy, Neuromuscular Re-education, Self-Care/Home Management,Soft Tissue Mobilization,Taping, Therapeutic Activities, Therapeutic Exercises Modalities Cold Pack/Ice Massage,Electric Stimulation,Hot Packs Next Visit Focus/Plan Next Note Type Treatment Note Next Visit Plan Next: Discuss and educate pt in specifics for completion of Bladder Diary and I/S in tracking for 1 week. Discuss use of 2 different diaries for tracking of bladder for next 7 days. Issue & review HEP: Ex's for PSD (hip AB) & DR ( TA), Kegel ex's and discussed exercise of Quick Flicks, Long Holds and Aggravators. Pt education in proper Kegel ( without use of substitute muscles), Review if needed: vulvar/ genital care, proper deep breathing, and proper breathing with transfers, hip stretch (ER, flexors), trunk stretches (R rot & R SB) and LE roll in/out program. Educate pt in proper body mechanics coordinating breathwork and PF contractions (proper squatting and lifting , sit to stand, and moving in bed). PF/core/hip (focus AD) strengthening, Improve abdominal soft tissue (uterus/bladder/urachus) mobility. Therapeutic Exercises check hip AB mobility and issue ex if needed. Assess for sacral imbalance affect on ability. POC: Diastasis Rectus and IC rehab, Sacral balance, PF stretching. Plan of Care Dates Plan of Care Start Date 10/11/23 Plan of Care End Date 12/10/23 Electronically Signed by: Marybeth Lester, PT 10/12/23 9716 If you are in agreement with this Plan of Care, please return a signed and dated copy. I have reviewed this Plan of Care and certify that the skilled therapy services above are required to meet the patient?s needs. Physician Signature Date Printed Name and Credentials Clinical Instructor Signature Printed Name and Credentials
--- NOTE | 2023-10-11 16:44 | PT.OIE ---
Current Diagnoses Muscle weakness (generalized) (10/11/23) Stress incontinence (female) (male) (10/11/23) Other female genital prolapse (10/11/23) Pelvic and perineal pain (10/11/23) Past Medical History (Last Updated 12/03/22 @ 08:38 by Kasia Doyle RN) Parathyroid adenoma PCOS (polycystic ovarian syndrome) Past Surgical History (Last Updated 12/03/22 @ 08:38 by Kasia Doyle RN) H/O parathyroidectomy (~10/15/22) H/O wrist surgery (~07/18/20) History of tonsillectomy and adenoidectomy (~2000) Hx of appendectomy (~2003) [place] teeth extracted (~2004) Visit Care Team Role Provider Type Maribel Peterson MD Family Provider Physician Primary Care Provider Specialty: Family Practice Address: [address] [place] [address] Email: [email or web address] Rehana Valles PA-C Attending Provider Advanced Bike Mechanic Referring Provider Specialty: Medical Address: [address] [place] [address], [address], [facility] Email: [email or web address] Physical Therapy Initial Evaluation PT-OP-A Visit Information Start: 10/08/23 19:49 Freq: Status: Active Protocol: Document 10/11/23 11:27 LRN (Rec: 10/11/23 12:22 LRN [id number]) Out-Patient Physical Therapy Visit Information Visit Information Visit Type Initial Evaluation Visit Start Time 11: Visit Stop Time 12:19 Total Visit Minutes 54 Visit Number 12/10 Evaluation Information Evaluation Date 10/11/23 Precautions Precautions Parathyroid excised 10/15/22, current UTI. PT-OP-B Current Condition Start: 10/08/23 19:49 Freq: Status: Active Protocol: Document 10/11/23 11:27 LRN (Rec: 10/11/23 12:22 LRN [id number]) Current Condition History of Current Condition Onset Date 07/01/23 delivery of son (~10 wks post ) Current Complaints Pelvic pain daily. History of Current Condition First week after having baby had to go to hospital a lot, so had very little rest. Now having pain in the pelvic floor pain. Some days pain is all day and some days only with certain movements. If walking on uneven ground then can feel the pain. When walking briskly there is pain after a few minutes or sometimes right away. Pain SLS. Delayed pain onset with prolonged standing, either later in the day or the next day. At night if moving in bed (rolling to side) feels pain. No significant history of pain with first . Prior Treatments and Tests Currently has UTI and is using an [id number] medication, and adding melaleuca oil. Developmental History Developmental History 07/01/23-vaginal of son, 9#, 4 oz, minor tearing not requiring stitches. 2010-vaginal of son, 8#, 6oz. Big tear with delivery Treatment Goals Patient/Caregiver Goals Pt goals: Eliminate pelvic pain with crossing legs, walking. Start light exercise (walking w/o urinary leakage). Start back to exercise ( walking) Personal Factors Other Personal Factors That May Effect Frequent UTI's. Therapy/Recovery PT-OP-C Subjective Start: 10/08/23 19:49 Freq: Status: Active Protocol: Document 10/11/23 11:27 LRN (Rec: 10/11/23 12:22 LRN [id number]) Patient Questionnaires Pelvic Pain and Urgency/Frequency Patient Symptom Scale Pelvic Pain Score 22 (75% Likelihood of + Potassium Sensitivity Test/ interstitial cystitis) OP-PT Pain Assessment Pain Assessment Grid Paper Pain Assessment Grid Completed Yes Location Pelvic Floor Pain Location Details Perineum Intensity 4 Scale Used Numeric (0 - 10) Description Aching Frequency Intermittent & Daily Pain Aggravating Factors Changing Position,Standing, Walking PT-OP-I Pelvic Floor Start: 10/08/23 19:49 Freq: Status: Active Protocol: Document 10/11/23 11:27 LRN (Rec: 10/11/23 12:22 LRN [id number]) Pelvic Floor Assessment Urine Urinary Symptoms Pain Other Urinary Symptoms Frequent urinary infections, 8x in the last year (currently with UTI) Leakage Size Large Leakage Cause Exercise Other Leakage Causes Urinary leakage with exercise, not on a daily basis. Voiding Frequency 10 Nocturia 2-3x Bowel Bowel Surgery No: Pt denies constipation Bowel Symptoms Pain Pelvic Clock Pelvic Clock 12-3 Tenderness Pelvic Clock 3-6 Tenderness Pelvic Clock 6-9 Tenderness Pelvic Clock 9-12 Tenderness Prolapse Cystocele Grade 1 Perineal Descent Resting Absent Contraction Ability Voluntary Contraction Moderate Voluntary Relaxation Moderate Manual Muscle Testing Left 3 Manual Muscle Testing Right 2 Manual Muscle Testing Anterior 3 Manual Muscle Testing Posterior 2 Muscle Endurance (Seconds) 4 Number of Quick Contractions In 10 9 Seconds Comments Pelvic Floor Comments Notable redness of Labia minora and vaginal. PT-OP-J Posture/Palpation/Skin Start: 10/08/23 19:49 Freq: Status: Active Protocol: Document 10/11/23 11:27 LRN (Rec: 10/11/23 12:22 LRN [id number]) Posture Evaluation Position Standing Head/C-Spine Posture Forward Head T-Spine Posture Increased Kyphosis L-Spine Posture Increased Lordosis,Shifted Right Shoulder Posture (L) Elevated Scapula Posture (R) Depressed Pelvis Posture Anteriorly Tilted Knee Posture (L) Genu Valgus,(R) Genu Valgus Comments Posture Comments Increased kyphosis at T6-T7, R OLGA is deep. Palpation Assessment Location Abdomen Palpation Location Abdomen Palpation Details Umbilicus 2 above: Closed Umbilicus 1 above: 1.5 finger widths, shallow Umbilicus Umbilicus: 1 below: 1.5 finger widths, shallow Umbilicus: 2 below: 0.5 finger widths, shallow Umbilicus: 3 below: Closed. Pubic bone Palpation Location Anterior Pubic bone Palpation Findings Tenderness PT-OP-K Range of Motion Start: 10/08/23 19:49 Freq: Status: Active Protocol: Document 10/11/23 11:27 LRN (Rec: 10/11/23 12:22 LRN [id number]) Lumbar Spine Range of Motion Lumbar Spine Active Degrees Testing Position Standing Flexion 100 Extension 25 Rotation Left 20 Rotation Right 10 Lateral Flexion Left 33 Lateral Flexion Right 17 Hip Goniometric Range of Motion Hip Right Passive Testing Position Sitting Internal Rotation 45 External Rotation 30 Comments ROM was estimated Left Passive Testing Position Sitting Internal Rotation 45 External Rotation 25 Comments ROM was estimated PT-OP-M Strength Start: 10/08/23 19:49 Freq: Status: Active Protocol: Document 10/11/23 11:27 LRN (Rec: 10/11/23 12:22 LRN [id number]) Trunk Strength Trunk Manual Muscle Testing Core Stabilization Lacks core stability with hip ext and AB/AD Hip Strength Hip Manual Muscle Testing Right Adduction 2+ Poor+ External Rotation 3 Fair Comments Lower anterior pelvic pain with MMT. Left Extension (S1) 4+ Good+ External Rotation 3 Fair Comments Lower anterior pelvic pain with MMT. PT-OP-Q Treatments Start: 10/08/23 19:49 Freq: Status: Active Protocol: Document 10/11/23 11:27 LRN (Rec: 10/11/23 12:22 LRN [id number]) Therapeutic Exercises Sitting Exercises TA tightening Sitting Exercise Name Andrew hip AB with TA tightening . Side bilateral Reps/Minutes 2x Self-Care/Home Management Treatment Education Other Education Discussed results of evaluation, goals, and plan of care (POC). Pt agreeable to goals and POC. Activities Self-Care/Home Management Activities I/S pt to do andrew hip AB with TA tightening exercise. PT-OP-T Assessment and Plan Start: 10/08/23 19:49 Freq: Status: Active Protocol: Document 10/11/23 11:27 LRN (Rec: 10/11/23 12:22 LRN [id number]) Physical Therapy Assessment Rehab Potential Rehabilitation Potential Good Evaluation Complexity Number of Personal Factors/Comorbidities 1-2 Number of Body Systems Impaired 4 or More Clinical Presentation at Evaluation Evolving Impairments Impairments Activity Tolerance,Functional Mobility,Pain,Posture,ROM, Sensation,Soft Tissue Mobility ,Strength Goals Four Impairment Diastasis Rectus (DR) Impairment Umbilicus 2 above: Closed Umbilicus 1 above: 1.5 finger widths, shallow Umbilicus Umbilicus: 1 below: 1.5 finger widths, shallow Umbilicus: 2 below: 0.5 finger widths, shallow Umbilicus: 3 below: Closed. Short Term Goal (STG) Pt educated in self care to reduce DR (towel support for transfers). STG Duration 2 wks-10/19/23 Campaign Analyst Goal (LTG) Decrease signs of DR. LTG Duration 9 wks-12/10/23 Three Impairment PF pain limiting ability to return to prior level of function of exercise. Impairment Pelvic Floor pain with walking and crossing legs. Short Term Goal (STG) Eliminate pelvic pain with crossing legs and walking. STG Duration 4 wks-11/05/23 Senior Care Goal (LTG) Start light exercise (walking w/o urinary leakage). Start back to exercise walking on level w/o PF pain. LTG Duration 9 wks-12/10/23 Two Impairment Urinary incontinence Impairment Urinary leakage with light and vigorous activity (brisk walking or on uneven ground). Short Term Goal (STG) Pt will be educated in urinary delay techinque STG Duration 4 wks-11/05/23 Campaign Analyst Goal (LTG) Improve control over urinary incontinence with elimination of urinary leakage with walking. LTG Duration 9 wks-12/10/23 One Impairment Pt lacks an independent self care HEP. Short Term Goal (STG) Pt educated in proper transfers to lessen core abdominal pressure. STG Duration 3 wks-10/29/23 Campaign Analyst Goal (LTG) Pt will be independent in a self care HEP for PF strengthening. LTG Duration 9 wks-12/10/23 Assessment Summary Assessment Pt is a 33 yo female who presents with PF pain with tightness of her PF muscles, red irritated PF tissues, and current comorbidity of UTI. Her PUF questionnare score indicates 75% positive for interstitial cystitis, but her responses may be more due to her current UTI condition and affects of being post- from a vaginal delivery. 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 She has tightness of the L side of PF tight and tender > R. Her progress is expected to be slow due to her current cormobidity (UTI), her many areas of dysfunction, and considering she is also working. The pt is limited in her therapy visits; therefore I will try to progress the pt towards independent care, with extension of her therapy into the new year. The pt will benefit from skilled physical therapy to work towards achieving the above stated goals. Physical Therapy Plan Frequency and Duration Frequency of Treatment 1x/Week Duration of treatment (weeks) 9 Plan of Care Start Date 10/11/23 Plan of Care End Date 12/10/23 Therapeutic Interventions Therapeutic Interventions Home Exercise Program,Joint Mobilizations,Manual Therapy, Neuromuscular Re-education, Self-Care/Home Management,Soft Tissue Mobilization,Taping, Therapeutic Activities, Therapeutic Exercises Modalities Cold Pack/Ice Massage,Electric Stimulation,Hot Packs Next Visit Focus/Plan Next Note Type Treatment Note Next Visit Plan Next: Discuss and educate pt in specifics for completion of Bladder Diary and I/S in tracking for 1 week. Discuss use of 2 different diaries for tracking of bladder for next 7 days. Issue & review HEP: Ex's for PSD (hip AB) & DR ( TA), Kegel ex's and discussed exercise of Quick Flicks, Long Holds and Aggravators. Pt education in proper Kegel ( without use of substitute muscles), Review if needed: vulvar/ genital care, proper deep breathing, and proper breathing with transfers, hip stretch (ER, flexors), trunk stretches (R rot & R SB) and LE roll in/out program. Educate pt in proper body mechanics coordinating breathwork and PF contractions (proper squatting and lifting , sit to stand, and moving in bed). PF/core/hip (focus AD) strengthening, Improve abdominal soft tissue (uterus/bladder/urachus) mobility. Therapeutic Exercises check hip AB mobility and issue ex if needed. Assess for sacral imbalance affect on ability. POC: Diastasis Rectus and IC rehab, Sacral balance, PF stretching.
--- NOTE | 2023-10-14 17:15 | PT.OTN ---
Current Diagnoses Muscle weakness (generalized) (10/14/23) Stress incontinence (female) (male) (10/14/23) Other female genital prolapse (10/14/23) Pelvic and perineal pain (10/14/23) Physical Therapy Treatment Note PT-OP-A Visit Information Start: 10/08/23 19:49 Freq: Status: Active Protocol: Document 10/14/23 08:18 LRN (Rec: 10/14/23 09:07 LRN [id number]) Out-Patient Physical Therapy Visit Information Visit Information Visit Type Treatment Note Visit Start Time 08:18 Visit Stop Time 09:02 Total Visit Minutes 43 Visit Number 01/10 Evaluation Information Evaluation Date 10/11/23 Precautions Precautions Parathyroid excised 10/15/22, current UTI. PT-OP-B Current Condition Start: 10/08/23 19:49 Freq: Status: Active Protocol: Document 10/11/23 11:27 LRN (Rec: 10/11/23 12:22 LRN [id number]) Current Condition History of Current Condition Onset Date 07/01/23 delivery of son (~10 wks post ) Current Complaints Pelvic pain daily. History of Current Condition First week after having baby had to go to hospital a lot, so had very little rest. Now having pain in the pelvic floor pain. Some days pain is all day and some days only with certain movements. If walking on uneven ground then can feel the pain. When walking briskly there is pain after a few minutes or sometimes right away. Pain SLS. Delayed pain onset with prolonged standing, either later in the day or the next day. At night if moving in bed (rolling to side) feels pain. No significant history of pain with first . Prior Treatments and Tests Currently has UTI and is using an [id number] medication, and adding melaleuca oil. Developmental History Developmental History 07/01/23-vaginal of son, 9#, 4 oz, minor tearing not requiring stitches. 2010-vaginal of son, 8#, 6oz. Big tear with delivery Treatment Goals Patient/Caregiver Goals Pt goals: Eliminate pelvic pain with crossing legs, walking. Start light exercise (walking w/o urinary leakage). Start back to exercise ( walking) Personal Factors Other Personal Factors That May Effect Frequent UTI's. Therapy/Recovery PT-OP-C Subjective Start: 10/08/23 19:49 Freq: Status: Active Protocol: Document 10/14/23 08:18 LRN (Rec: 10/14/23 09:07 LRN [id number]) OP-PT Subjective Patient Comments Patient Comments Pt reports more pain in PF and in R Ischial tub region, noticeable with marching up with RLE. PT-OP-I Pelvic Floor Start: 10/08/23 19:49 Freq: Status: Active Protocol: Document 10/11/23 11:27 LRN (Rec: 10/11/23 12:22 LRN [id number]) Pelvic Floor Assessment Urine Urinary Symptoms Pain Other Urinary Symptoms Frequent urinary infections, 8x in the last year (currently with UTI) Leakage Size Large Leakage Cause Exercise Other Leakage Causes Urinary leakage with exercise, not on a daily basis. Voiding Frequency 10 Nocturia 2-3x Bowel Bowel Surgery No: Pt denies constipation Bowel Symptoms Pain Pelvic Clock Pelvic Clock 12-3 Tenderness Pelvic Clock 3-6 Tenderness Pelvic Clock 6-9 Tenderness Pelvic Clock 9-12 Tenderness Prolapse Cystocele Grade 1 Perineal Descent Resting Absent Contraction Ability Voluntary Contraction Moderate Voluntary Relaxation Moderate Manual Muscle Testing Left 3 Manual Muscle Testing Right 2 Manual Muscle Testing Anterior 3 Manual Muscle Testing Posterior 2 Muscle Endurance (Seconds) 4 Number of Quick Contractions In 10 9 Seconds Comments Pelvic Floor Comments Notable redness of Labia minora and vaginal. PT-OP-J Posture/Palpation/Skin Start: 10/08/23 19:49 Freq: Status: Active Protocol: Document 10/11/23 11:27 LRN (Rec: 10/11/23 12:22 LRN [id number]) Posture Evaluation Position Standing Head/C-Spine Posture Forward Head T-Spine Posture Increased Kyphosis L-Spine Posture Increased Lordosis,Shifted Right Shoulder Posture (L) Elevated Scapula Posture (R) Depressed Pelvis Posture Anteriorly Tilted Knee Posture (L) Genu Valgus,(R) Genu Valgus Comments Posture Comments Increased kyphosis at T6-T7, R OLGA is deep. Palpation Assessment Location Abdomen Palpation Location Abdomen Palpation Details Umbilicus 2 above: Closed Umbilicus 1 above: 1.5 finger widths, shallow Umbilicus Umbilicus: 1 below: 1.5 finger widths, shallow Umbilicus: 2 below: 0.5 finger widths, shallow Umbilicus: 3 below: Closed. Pubic bone Palpation Location Anterior Pubic bone Palpation Findings Tenderness PT-OP-K Range of Motion Start: 10/08/23 19:49 Freq: Status: Active Protocol: Document 10/11/23 11:27 LRN (Rec: 10/11/23 12:22 LRN [id number]) Lumbar Spine Range of Motion Lumbar Spine Active Degrees Testing Position Standing Flexion 100 Extension 25 Rotation Left 20 Rotation Right 10 Lateral Flexion Left 33 Lateral Flexion Right 17 Hip Goniometric Range of Motion Hip Right Passive Testing Position Sitting Internal Rotation 45 External Rotation 30 Comments ROM was estimated Left Passive Testing Position Sitting Internal Rotation 45 External Rotation 25 Comments ROM was estimated PT-OP-M Strength Start: 10/08/23 19:49 Freq: Status: Active Protocol: Document 10/11/23 11:27 LRN (Rec: 10/11/23 12:22 LRN [id number]) Trunk Strength Trunk Manual Muscle Testing Core Stabilization Lacks core stability with hip ext and AB/AD Hip Strength Hip Manual Muscle Testing Right Adduction 2+ Poor+ External Rotation 3 Fair Comments Lower anterior pelvic pain with MMT. Left Extension (S1) 4+ Good+ External Rotation 3 Fair Comments Lower anterior pelvic pain with MMT. PT-OP-Q Treatments Start: 10/08/23 19:49 Freq: Status: Active Protocol: Document 10/14/23 08:18 LRN (Rec: 10/14/23 09:07 LRN [id number]) Therapeutic Exercises Supine Exercises TA tightening Supine Exercise Name TA tightening Reps/Minutes 6' Comments Much phys & v cuing for neutral spine with tightening. Happy Baby pose Supine Exercise Name Happy Baby Pose Reps/Minutes 4' Comments Phys & v cuing for positioning /deter max tolerated stretch Sidelying Exercises TA tightening Sidelying Exercise Name TA tightening Reps/Minutes 7' Comments Phys & v cuing for neutral spine with tightening. Other Exercises 4 pt Other Exercise Name Wag the Tail Reps/Minutes 7' Comments Extra time needed to obtain stretch w/positioning. Manual Therapy Treatment Soft Tissue Mobilization RSIJ Body Location Correct Anterio R SIJ Self-Care/Home Management Treatment Education Patient Education Home Exercise Program Other Education Discuss and educate pt in specifics for completion of Bladder Diary for fluid intake /output, and I/S in tracking for a week. Activities Self-Care/Home Management Activities Issued & reviewed HEP: PF/hip stretches: Piriformis stretch (Knee to opp shdr), lateral hip and Ilipsoas stretch (sup & standing), Wag the Tail, Happy Baby pose. Issued & very briefly discussed recommendations for Posture & Body Mechanics. Issued handout for bladder diary, pt to make copies for the week. PT-OP-T Assessment and Plan Start: 10/08/23 19:49 Freq: Status: Active Protocol: Document 10/14/23 08:18 LRN (Rec: 10/14/23 09:07 LRN [id number]) Physical Therapy Assessment Goals Four Impairment Diastasis Rectus (DR) Impairment Umbilicus 2 above: Closed Umbilicus 1 above: 1.5 finger widths, shallow Umbilicus Umbilicus: 1 below: 1.5 finger widths, shallow Umbilicus: 2 below: 0.5 finger widths, shallow Umbilicus: 3 below: Closed. Short Term Goal (STG) Pt educated in self care to reduce DR (towel support for transfers). STG Duration 2 wks-10/19/23 Halfway Goal (LTG) Decrease signs of DR. LTG Duration 9 wks-12/10/23 Three Impairment PF pain limiting ability to return to prior level of function of exercise. Impairment Pelvic Floor pain with walking and crossing legs. Short Term Goal (STG) Eliminate pelvic pain with crossing legs and walking. STG Duration 4 wks-11/05/23 Halfway Goal (LTG) Start light exercise (walking w/o urinary leakage). Start back to exercise walking on level w/o PF pain. LTG Duration 9 wks-12/10/23 Two Impairment Urinary incontinence Impairment Urinary leakage with light and vigorous activity (brisk walking or on uneven ground). Short Term Goal (STG) Pt will be educated in urinary delay techinque STG Duration 4 wks-11/05/23 [employer] Goal (LTG) Improve control over urinary incontinence with elimination of urinary leakage with walking. LTG Duration 9 wks-12/10/23 One Impairment Pt lacks an independent self care HEP. Short Term Goal (STG) Pt educated in proper transfers to lessen core abdominal pressure. STG Duration 3 wks-10/29/23 Halfway Goal (LTG) Pt will be independent in a self care HEP for PF strengthening. 10/14/23: HEP: PF/hip stretch: Piriformis stretch ( Knee to opp shdr), Wag the Tail, Happy Baby pose. LTG Duration 9 wks-12/10/23 progressed Assessment Summary Assessment Pt having Sacral and groin pain due to R anteriorly rotated innominate that was corrected with SI mob, but not stabilized; therefore did not tolerate all hip stretches ( lateral hip and Iliopsoas). She has poor understanding of maintaining neutral spine positioning and demonstrates weak TA's with difficulty performing correctly in supine (able to do in sidelie). Pt is extremely tender at Obturator Internus (R>L) and has tenderness at Pubic symphysis and hip AD tendons at Inferior Pubic Rami. Pt needs much more soft tissue mobilization and pelvic/core stabilization. Physical Therapy Plan Frequency and Duration Frequency of Treatment 1x/Week Duration of treatment (weeks) 9 Plan of Care Start Date 10/11/23 Plan of Care End Date 12/10/23 Next Visit Focus/Plan Next Note Type Treatment Note Next Visit Plan Next: Check hip AB mobility and issue ex if needed. Review Bladder diary for hydration (educate) & voiding frequency and duration. Review Posture & Body Mechanics Handout. Assess prone possitioning affect on before sacral balancing. Ex: Kegel (without use of substitute muscles) with focus on PF relaxation, core/hip ( focus AD) strengthening, Ex & HEP: hip stretch (ER, flexors), trunk stretches (R rot & R SB) and LE roll in/out program. Education: vulvar/genital care , proper deep breathing, and proper breathing with transfers, proper body mechanics coordinating breathwork and PF contractions (proper squatting and lifting , sit to stand, and moving in bed). Improve abdominal soft tissue (uterus/bladder/urachus) mobility. POC: Diastasis Rectus and IC rehab, Pubic Symphasis Dysfunction Rehab, Sacral balance, PF stretching.
--- NOTE | 2023-11-01 12:22 | PT.OTN ---
Current Diagnoses Muscle weakness (generalized) (11/01/23) Stress incontinence (female) (male) (11/01/23) Other female genital prolapse (11/01/23) Pelvic and perineal pain (11/01/23) Physical Therapy Treatment Note PT-OP-A Visit Information Start: 10/08/23 19:49 Freq: Status: Active Protocol: Document 11/01/23 11:23 LRN (Rec: 11/01/23 12:21 LRN [id number]) Out-Patient Physical Therapy Visit Information Visit Information Visit Type Treatment Note Visit Start Time Visit Stop Time 12:03 Total Visit Minutes 40 Visit Number 3 Evaluation Information Evaluation Date 10/11/23 Precautions Precautions Parathyroid excised 10/15/22, current UTI. PT-OP-B Current Condition Start: 10/08/23 19:49 Freq: Status: Active Protocol: Document 10/11/23 11:27 LRN (Rec: 10/11/23 12:22 LRN [id number]) Current Condition History of Current Condition Onset Date 07/01/23 delivery of son (~10 wks post ) Current Complaints Pelvic pain daily. History of Current Condition First week after having baby had to go to hospital a lot, so had very little rest. Now having pain in the pelvic floor pain. Some days pain is all day and some days only with certain movements. If walking on uneven ground then can feel the pain. When walking briskly there is pain after a few minutes or sometimes right away. Pain SLS. Delayed pain onset with prolonged standing, either later in the day or the next day. At night if moving in bed (rolling to side) feels pain. No significant history of pain with first . Prior Treatments and Tests Currently has UTI and is using an [id number] medication, and adding melaleuca oil. Developmental History Developmental History 07/01/23-vaginal of son, 9#, 4 oz, minor tearing not requiring stitches. 2010-vaginal of son, 8#, 6oz. Big tear with delivery Treatment Goals Patient/Caregiver Goals Pt goals: Eliminate pelvic pain with crossing legs, walking. Start light exercise (walking w/o urinary leakage). Start back to exercise ( walking) Personal Factors Other Personal Factors That May Effect Frequent UTI's. Therapy/Recovery PT-OP-C Subjective Start: 10/08/23 19:49 Freq: Status: Active Protocol: Document 11/01/23 11:23 LRN (Rec: 11/01/23 12:21 LRN [id number]) OP-PT Subjective Patient Comments Patient Comments Feeling less pain. Ex's daily causes her to be less sore. Doing 7 stretches for the hip from an online program. Feels like she is in alignment with her ex's. PT-OP-I Pelvic Floor Start: 10/08/23 19:49 Freq: Status: Active Protocol: Document 10/11/23 11:27 LRN (Rec: 10/11/23 12:22 LRN [id number]) Pelvic Floor Assessment Urine Urinary Symptoms Pain Other Urinary Symptoms Frequent urinary infections, 8x in the last year (currently with UTI) Leakage Size Large Leakage Cause Exercise Other Leakage Causes Urinary leakage with exercise, not on a daily basis. Voiding Frequency 10 Nocturia 2-3x Bowel Bowel Surgery No: Pt denies constipation Bowel Symptoms Pain Pelvic Clock Pelvic Clock 12-3 Tenderness Pelvic Clock 3-6 Tenderness Pelvic Clock 6-9 Tenderness Pelvic Clock 9-12 Tenderness Prolapse Cystocele Grade 1 Perineal Descent Resting Absent Contraction Ability Voluntary Contraction Moderate Voluntary Relaxation Moderate Manual Muscle Testing Left 3 Manual Muscle Testing Right 2 Manual Muscle Testing Anterior 3 Manual Muscle Testing Posterior 2 Muscle Endurance (Seconds) 4 Number of Quick Contractions In 10 9 Seconds Comments Pelvic Floor Comments Notable redness of Labia minora and vaginal. PT-OP-J Posture/Palpation/Skin Start: 10/08/23 19:49 Freq: Status: Active Protocol: Document 10/11/23 11:27 LRN (Rec: 10/11/23 12:22 LRN [id number]) Posture Evaluation Position Standing Head/C-Spine Posture Forward Head T-Spine Posture Increased Kyphosis L-Spine Posture Increased Lordosis,Shifted Right Shoulder Posture (L) Elevated Scapula Posture (R) Depressed Pelvis Posture Anteriorly Tilted Knee Posture (L) Genu Valgus,(R) Genu Valgus Comments Posture Comments Increased kyphosis at T6-T7, R OLGA is deep. Palpation Assessment Location Abdomen Palpation Location Abdomen Palpation Details Umbilicus 2 above: Closed Umbilicus 1 above: 1.5 finger widths, shallow Umbilicus Umbilicus: 1 below: 1.5 finger widths, shallow Umbilicus: 2 below: 0.5 finger widths, shallow Umbilicus: 3 below: Closed. Pubic bone Palpation Location Anterior Pubic bone Palpation Findings Tenderness PT-OP-K Range of Motion Start: 10/08/23 19:49 Freq: Status: Active Protocol: Document 10/11/23 11:27 LRN (Rec: 10/11/23 12:22 LRN [id number]) Lumbar Spine Range of Motion Lumbar Spine Active Degrees Testing Position Standing Flexion 100 Extension 25 Rotation Left 20 Rotation Right 10 Lateral Flexion Left 33 Lateral Flexion Right 17 Hip Goniometric Range of Motion Hip Right Passive Testing Position Sitting Internal Rotation 45 External Rotation 30 Comments ROM was estimated Left Passive Testing Position Sitting Internal Rotation 45 External Rotation 25 Comments ROM was estimated PT-OP-M Strength Start: 10/08/23 19:49 Freq: Status: Active Protocol: Document 10/11/23 11:27 LRN (Rec: 10/11/23 12:22 LRN [id number]) Trunk Strength Trunk Manual Muscle Testing Core Stabilization Lacks core stability with hip ext and AB/AD Hip Strength Hip Manual Muscle Testing Right Adduction 2+ Poor+ External Rotation 3 Fair Comments Lower anterior pelvic pain with MMT. Left Extension (S1) 4+ Good+ External Rotation 3 Fair Comments Lower anterior pelvic pain with MMT. PT-OP-Q Treatments Start: 10/08/23 19:49 Freq: Status: Active Protocol: Document 11/01/23 11:23 LRN (Rec: 11/01/23 12:21 LRN [id number]) Therapeutic Exercises Sitting Exercises Piriformis stretch Sitting Exercise Name Side sit Piriformis stretch Side bilateral Reps/Minutes 4' Other Exercises TA tightening w/transfers Other Exercise Name Sit<>supine transfer training Reps/Minutes 5' Comments Cuing needed for TA tightening and proper transfer method x 2 Manual Therapy Treatment Soft Tissue Mobilization Hip AD's Body Location R hip AD's Mobilization Type Myofascial Release,Strumming, Trigger Point Release Intensity/Depth Superficial to moderate Body Position Supine Comments Pt responds best in supine, not able to relax AD's in hooklye. Self-Care/Home Management Treatment Activities Self-Care/Home Management Activities Issued handout for bed mobility log roll transfer. I /S to perform TA with exhale during transfer. PT-OP-T Assessment and Plan Start: 10/08/23 19:49 Freq: Status: Active Protocol: Document 12/04/23 11:23 LRN (Rec: 12/04/23 12:21 LRN [id number]) Physical Therapy Assessment Goals Four Impairment Diastasis Rectus (DR) Impairment Umbilicus 2 above: Closed Umbilicus 1 above: 1.5 finger widths, shallow Umbilicus Umbilicus: 1 below: 1.5 finger widths, shallow Umbilicus: 2 below: 0.5 finger widths, shallow Umbilicus: 3 below: Closed. Short Term Goal (STG) Pt educated in self care to reduce DR (towel support for transfers). STG Duration 2 wks-10/19/23 Detention Goal (LTG) Decrease signs of DR. LTG Duration 9 wks-12/10/23 Three Impairment PF pain limiting ability to return to prior level of function of exercise. Impairment Pelvic Floor pain with walking and crossing legs. Short Term Goal (STG) Eliminate pelvic pain with crossing legs and walking. STG Duration 4 wks-11/05/23 [place] Attorney Goal (LTG) Start light exercise (walking w/o urinary leakage). Start back to exercise walking on level w/o PF pain. LTG Duration 9 wks-12/10/23 Two Impairment Urinary incontinence Impairment Urinary leakage with light and vigorous activity (brisk walking or on uneven ground). Short Term Goal (STG) Pt will be educated in urinary delay techinque STG Duration 4 wks-11/05/23 Detention Goal (LTG) Improve control over urinary incontinence with elimination of urinary leakage with walking. LTG Duration 9 wks-12/10/23 One Impairment Pt lacks an independent self care HEP. Short Term Goal (STG) Pt educated in proper transfers to lessen core abdominal pressure. 11/01/12: Pt educated in log roll transfer for DR protection, with exhale on TA tightening. STG Duration 3 wks-10/29/23 (11/01/23: MET GOAL) [place] Attorney Goal (LTG) Pt will be independent in a self care HEP for PF strengthening. 10/14/23: HEP: PF/hip stretch: Piriformis stretch ( Knee to opp shdr), Wag the Tail, Happy Baby pose. LTG Duration 9 wks-12/10/23 progressed Assessment Summary Assessment Very tight R hip AD's with many active trP's with palpation. Was able to release many trP's at pubic rami and hip ADD's. Further educ on log roll transfer to minimize DR stress needed due to pt poor recall with transfer. Pt not able to identify doming of abdomen with head lifts. Physical Therapy Plan Frequency and Duration Frequency of Treatment 1x/Week Duration of treatment (weeks) 9 Plan of Care Start Date 10/11/23 Plan of Care End Date 12/10/23 Next Visit Focus/Plan Next Note Type Treatment Note Next Visit Plan Next: educate in self care to reduce DR (towel support for transfers), Education: vulvar /genital care, proper deep breathing, review breathing with transfers, proper body mechanics coordinating breathwork and PF contractions (proper squatting and lifting , sit to stand, and moving in bed). Review Posture & Body Mechanics Handout. measure hip AB mobility and issue stretch ex (R>L). Review Bladder diary for hydration (educate) & voiding frequency and duration. Before sacral balancing, assess prone positioning affect on . Improve abdominal soft tissue (uterus/bladder/urachus) mobility. Ex: Kegel (without use of substitute muscles) with focus on PF relaxation, core/hip ( focus AD) strengthening, Ex & HEP: hip stretch (R hip AD, ER, flexors), trunk stretches (R rot & R SB) and LE roll in/out program. POC: Diastasis Rectus and IC rehab, Pubic Symphasis Dysfunction Rehab, Sacral balance, PF stretching.
--- NOTE | 2023-11-04 16:40 | PT.OTN ---
Current Diagnoses Muscle weakness (generalized) (11/04/23) Stress incontinence (female) (male) (11/04/23) Other female genital prolapse (11/04/23) Pelvic and perineal pain (11/04/23) Physical Therapy Treatment Note PT-OP-A Visit Information Start: 10/08/23 19:49 Freq: Status: Active Protocol: Document 11/04/23 10:36 LRN (Rec: 11/04/23 12:24 LRN [id number]) Out-Patient Physical Therapy Visit Information Visit Information Visit Type Treatment Note Visit Start Time 10:36 Visit Stop Time 11:14 Total Visit Minutes 38 Visit Number 03/10 Evaluation Information Evaluation Date 10/11/23 Precautions Precautions Parathyroid excised 10/15/22, current UTI. PT-OP-B Current Condition Start: 10/08/23 19:49 Freq: Status: Active Protocol: Document 10/11/23 11:27 LRN (Rec: 10/11/23 12:22 LRN [id number]) Current Condition History of Current Condition Onset Date 07/01/23 delivery of son (~10 wks post ) Current Complaints Pelvic pain daily. History of Current Condition First week after having baby had to go to hospital a lot, so had very little rest. Now having pain in the pelvic floor pain. Some days pain is all day and some days only with certain movements. If walking on uneven ground then can feel the pain. When walking briskly there is pain after a few minutes or sometimes right away. Pain SLS. Delayed pain onset with prolonged standing, either later in the day or the next day. At night if moving in bed (rolling to side) feels pain. No significant history of pain with first . Prior Treatments and Tests Currently has UTI and is using an [id number] medication, and adding melaleuca oil. Developmental History Developmental History 07/01/23-vaginal of son, 9#, 4 oz, minor tearing not requiring stitches. 2010-vaginal of son, 8#, 6oz. Big tear with delivery Treatment Goals Patient/Caregiver Goals Pt goals: Eliminate pelvic pain with crossing legs, walking. Start light exercise (walking w/o urinary leakage). Start back to exercise ( walking) Personal Factors Other Personal Factors That May Effect Frequent UTI's. Therapy/Recovery PT-OP-C Subjective Start: 10/08/23 19:49 Freq: Status: Active Protocol: Document 11/04/23 10:36 LRN (Rec: 11/04/23 12:24 LRN [id number]) OP-PT Subjective Patient Comments Patient Comments Was really sore after stretching inner thighs at home. PT-OP-I Pelvic Floor Start: 10/08/23 19:49 Freq: Status: Active Protocol: Document 10/11/23 11:27 LRN (Rec: 10/11/23 12:22 LRN [id number]) Pelvic Floor Assessment Urine Urinary Symptoms Pain Other Urinary Symptoms Frequent urinary infections, 8x in the last year (currently with UTI) Leakage Size Large Leakage Cause Exercise Other Leakage Causes Urinary leakage with exercise, not on a daily basis. Voiding Frequency 10 Nocturia 2-3x Bowel Bowel Surgery No: Pt denies constipation Bowel Symptoms Pain Pelvic Clock Pelvic Clock 12-3 Tenderness Pelvic Clock 3-6 Tenderness Pelvic Clock 6-9 Tenderness Pelvic Clock 9-12 Tenderness Prolapse Cystocele Grade 1 Perineal Descent Resting Absent Contraction Ability Voluntary Contraction Moderate Voluntary Relaxation Moderate Manual Muscle Testing Left 3 Manual Muscle Testing Right 2 Manual Muscle Testing Anterior 3 Manual Muscle Testing Posterior 2 Muscle Endurance (Seconds) 4 Number of Quick Contractions In 10 9 Seconds Comments Pelvic Floor Comments Notable redness of Labia minora and vaginal. PT-OP-J Posture/Palpation/Skin Start: 10/08/23 19:49 Freq: Status: Active Protocol: Document 10/11/23 11:27 LRN (Rec: 10/11/23 12:22 LRN [id number]) Posture Evaluation Position Standing Head/C-Spine Posture Forward Head T-Spine Posture Increased Kyphosis L-Spine Posture Increased Lordosis,Shifted Right Shoulder Posture (L) Elevated Scapula Posture (R) Depressed Pelvis Posture Anteriorly Tilted Knee Posture (L) Genu Valgus,(R) Genu Valgus Comments Posture Comments Increased kyphosis at T6-T7, R OLGA is deep. Palpation Assessment Location Abdomen Palpation Location Abdomen Palpation Details Umbilicus 2 above: Closed Umbilicus 1 above: 1.5 finger widths, shallow Umbilicus Umbilicus: 1 below: 1.5 finger widths, shallow Umbilicus: 2 below: 0.5 finger widths, shallow Umbilicus: 3 below: Closed. Pubic bone Palpation Location Anterior Pubic bone Palpation Findings Tenderness PT-OP-K Range of Motion Start: 10/08/23 19:49 Freq: Status: Active Protocol: Document 10/11/23 11:27 LRN (Rec: 10/11/23 12:22 LRN [id number]) Lumbar Spine Range of Motion Lumbar Spine Active Degrees Testing Position Standing Flexion 100 Extension 25 Rotation Left 20 Rotation Right 10 Lateral Flexion Left 33 Lateral Flexion Right 17 Hip Goniometric Range of Motion Hip Right Passive Testing Position Sitting Internal Rotation 45 External Rotation 30 Comments ROM was estimated Left Passive Testing Position Sitting Internal Rotation 45 External Rotation 25 Comments ROM was estimated PT-OP-M Strength Start: 10/08/23 19:49 Freq: Status: Active Protocol: Document 10/11/23 11:27 LRN (Rec: 10/11/23 12:22 LRN [id number]) Trunk Strength Trunk Manual Muscle Testing Core Stabilization Lacks core stability with hip ext and AB/AD Hip Strength Hip Manual Muscle Testing Right Adduction 2+ Poor+ External Rotation 3 Fair Comments Lower anterior pelvic pain with MMT. Left Extension (S1) 4+ Good+ External Rotation 3 Fair Comments Lower anterior pelvic pain with MMT. PT-OP-Q Treatments Start: 10/08/23 19:49 Freq: Status: Active Protocol: Document 11/04/23 10:36 LRN (Rec: 11/04/23 12:24 LRN [id number]) Therapeutic Exercises Supine Exercises Hamstring stretch Supine Exercise Name Michael SLR w/assist Side bilateral Reps/Minutes 5' Comments Phys assist, v cuing to how to do at home indep. TA tightening Supine Exercise Name TA tightening Reps/Minutes 6' Comments Much phys & v cuing for neutral spine with tightening. Sitting Exercises Hamstring stretch Sitting Exercise Name Longsit for HS stretch w/ankle waves Reps/Minutes 6' Comments Extra time to determine max augie stretch and to decr R LBP w/stretch Hip AD stretch Sitting Exercise Name Michael - together Inner thigh stretch Side bilateral Reps/Minutes 3' TA tightening Sitting Exercise Name TA tightening. Side bilateral Reps/Minutes 2x Other Exercises TA tightening w/transfers Other Exercise Name Sit<>supine transfer training Reps/Minutes 2' Comments Cuing needed for TA tightening and proper transfer method x 2 4 pt Other Exercise Name TA tightening/PF contraction Reps/Minutes 5' Comments Cuing for abdominal tightening with breathing (2 breath hold ) Manual Therapy Treatment Joint Mobilizations SIJ Joint Correction of L SIJ director index rot /R anter rot Body Position Supine Reps/Duration 11' Comments Not fully corrected with treatment for R anter rot, needed mob of L SIJ. Self-Care/Home Management Treatment Education Other Education Pt briefly educated in genital /vulvar care. Pt education in proper body mechanics for daily activities . Activities Self-Care/Home Management Activities Issued handout for genital/ vulvar care. Issued handout for Daily activities proper body mechanics. PT-OP-T Assessment and Plan Start: 10/08/23 19:49 Freq: Status: Active Protocol: Document 11/04/23 10:36 LRN (Rec: 11/04/23 12:24 LRN [id number]) Physical Therapy Assessment Goals Four Impairment Diastasis Rectus (DR) Impairment Umbilicus 2 above: Closed Umbilicus 1 above: 1.5 finger widths, shallow Umbilicus Umbilicus: 1 below: 1.5 finger widths, shallow Umbilicus: 2 below: 0.5 finger widths, shallow Umbilicus: 3 below: Closed. Short Term Goal (STG) Pt educated in self care to reduce DR (towel support for transfers). STG Duration 2 wks-10/19/23 [facility] Goal (LTG) Decrease signs of DR. LTG Duration 9 wks-12/10/23 Three Impairment PF pain limiting ability to return to prior level of function of exercise. Impairment Pelvic Floor pain with walking and crossing legs. Short Term Goal (STG) Eliminate pelvic pain with crossing legs and walking. STG Duration 4 wks-11/05/23 Hazardous Waste Remover Goal (LTG) Start light exercise (walking w/o urinary leakage). Start back to exercise walking on level w/o PF pain. LTG Duration 9 wks-12/10/23 Two Impairment Urinary incontinence Impairment Urinary leakage with light and vigorous activity (brisk walking or on uneven ground). Short Term Goal (STG) Pt will be educated in urinary delay techinque STG Duration 4 wks-11/05/23 Hazardous Waste Remover Goal (LTG) Improve control over urinary incontinence with elimination of urinary leakage with walking. LTG Duration 9 wks-12/10/23 One Impairment Pt lacks an independent self care HEP. Short Term Goal (STG) Pt educated in proper transfers to lessen core abdominal pressure. 11/01/12: Pt educated in log roll transfer for DR protection, with exhale on TA tightening. STG Duration 3 wks-10/29/23 (11/01/23: MET GOAL) Hazardous Waste Remover Goal (LTG) Pt will be independent in a self care HEP for PF strengthening. 10/14/23: HEP: PF/hip stretch: Piriformis stretch ( Knee to opp shdr), Wag the Tail, Happy Baby pose. LTG Duration 9 wks-12/10/23 progressed Assessment Summary Assessment No sacral pain, only inner thigh pain. Has not had crazy pain in the inner thigh since last session. Was able to wash feet and put shoes on w/o pain. L innominate appears to be posteriorly rotated and corrects leg length difference vs treatment to R innominate. Physical Therapy Plan Frequency and Duration Frequency of Treatment 1x/Week Duration of treatment (weeks) 9 Plan of Care Start Date 10/11/23 Plan of Care End Date 12/10/23 Next Visit Focus/Plan Next Note Type Treatment Note Next Visit Plan Next: Review for further education in vulvar/genital care. NEXT: Educate in use of towel for transfers to protect DR (STG #4), & educate in urinary delay technique ( STG #2). measure hip AB mobility and issue stretch ex (R>L). Education: Check for proper deep breathing, review breathing with transfers, proper body mechanics coordinating breathwork and Education: PF contractions with daily activities (proper squatting and lifting, sit to stand, and moving in bed). Review Posture & Body Mechanics Handout. Review Bladder diary for hydration (educate) & voiding frequency and duration. Before sacral balancing, assess prone positioning affect on . Improve abdominal soft tissue (uterus/bladder/urachus) mobility. Ex: Kegel (without use of substitute muscles) with focus on PF relaxation, core/hip ( focus AD) strengthening, Ex & HEP: hip stretch (R hip AD, ER, flexors), trunk stretches (R rot & R SB) and LE roll in/out program. POC: Diastasis Rectus and IC rehab, Pubic Symphasis Dysfunction Rehab, Sacral balance, PF stretching.
--- NOTE | 2023-11-08 16:32 | PT.OTN ---
Current Diagnoses Muscle weakness (generalized) (11/08/23) Stress incontinence (female) (male) (11/08/23) Other female genital prolapse (11/08/23) Pelvic and perineal pain (11/08/23) Physical Therapy Treatment Note PT-OP-A Visit Information Start: 10/08/23 19:49 Freq: Status: Active Protocol: Document 11/08/23 10:32 LRN (Rec: 11/08/23 11:19 LRN [id number]) Out-Patient Physical Therapy Visit Information Visit Information Visit Type Treatment Note Visit Start Time 10:32 Visit Stop Time 11:16 Total Visit Minutes 43 Visit Number 04/09 Evaluation Information Evaluation Date 10/11/23 Precautions Precautions Parathyroid excised 10/15/22, current UTI. PT-OP-B Current Condition Start: 10/08/23 19:49 Freq: Status: Active Protocol: Document 10/11/23 11:27 LRN (Rec: 10/11/23 12:22 LRN [id number]) Current Condition History of Current Condition Onset Date 07/01/23 delivery of son (~10 wks post ) Current Complaints Pelvic pain daily. History of Current Condition First week after having baby had to go to hospital a lot, so had very little rest. Now having pain in the pelvic floor pain. Some days pain is all day and some days only with certain movements. If walking on uneven ground then can feel the pain. When walking briskly there is pain after a few minutes or sometimes right away. Pain SLS. Delayed pain onset with prolonged standing, either later in the day or the next day. At night if moving in bed (rolling to side) feels pain. No significant history of pain with first . Prior Treatments and Tests Currently has UTI and is using an [id number] medication, and adding melaleuca oil. Developmental History Developmental History 07/01/23-vaginal of son, 9#, 4 oz, minor tearing not requiring stitches. 2010-vaginal of son, 8#, 6oz. Big tear with delivery Treatment Goals Patient/Caregiver Goals Pt goals: Eliminate pelvic pain with crossing legs, walking. Start light exercise (walking w/o urinary leakage). Start back to exercise ( walking) Personal Factors Other Personal Factors That May Effect Frequent UTI's. Therapy/Recovery PT-OP-C Subjective Start: 10/08/23 19:49 Freq: Status: Active Protocol: Document 11/08/23 10:32 LRN (Rec: 11/08/23 11:19 LRN [id number]) OP-PT Subjective Patient Comments Patient Comments Had pink in urine after going home, but did stretches at home before therapy. Had cramping from cysts in ovaries probably. Having multiple BM's daily of type 4. PT-OP-I Pelvic Floor Start: 10/08/23 19:49 Freq: Status: Active Protocol: Document 10/11/23 11:27 LRN (Rec: 10/11/23 12:22 LRN [id number]) Pelvic Floor Assessment Urine Urinary Symptoms Pain Other Urinary Symptoms Frequent urinary infections, 8x in the last year (currently with UTI) Leakage Size Large Leakage Cause Exercise Other Leakage Causes Urinary leakage with exercise, not on a daily basis. Voiding Frequency 10 Nocturia 2-3x Bowel Bowel Surgery No: Pt denies constipation Bowel Symptoms Pain Pelvic Clock Pelvic Clock 12-3 Tenderness Pelvic Clock 3-6 Tenderness Pelvic Clock 6-9 Tenderness Pelvic Clock 9-12 Tenderness Prolapse Cystocele Grade 1 Perineal Descent Resting Absent Contraction Ability Voluntary Contraction Moderate Voluntary Relaxation Moderate Manual Muscle Testing Left 3 Manual Muscle Testing Right 2 Manual Muscle Testing Anterior 3 Manual Muscle Testing Posterior 2 Muscle Endurance (Seconds) 4 Number of Quick Contractions In 10 9 Seconds Comments Pelvic Floor Comments Notable redness of Labia minora and vaginal. PT-OP-J Posture/Palpation/Skin Start: 10/08/23 19:49 Freq: Status: Active Protocol: Document 10/11/23 11:27 LRN (Rec: 10/11/23 12:22 LRN [id number]) Posture Evaluation Position Standing Head/C-Spine Posture Forward Head T-Spine Posture Increased Kyphosis L-Spine Posture Increased Lordosis,Shifted Right Shoulder Posture (L) Elevated Scapula Posture (R) Depressed Pelvis Posture Anteriorly Tilted Knee Posture (L) Genu Valgus,(R) Genu Valgus Comments Posture Comments Increased kyphosis at T6-T7, R OLGA is deep. Palpation Assessment Location Abdomen Palpation Location Abdomen Palpation Details Umbilicus 2 above: Closed Umbilicus 1 above: 1.5 finger widths, shallow Umbilicus Umbilicus: 1 below: 1.5 finger widths, shallow Umbilicus: 2 below: 0.5 finger widths, shallow Umbilicus: 3 below: Closed. Pubic bone Palpation Location Anterior Pubic bone Palpation Findings Tenderness PT-OP-K Range of Motion Start: 10/08/23 19:49 Freq: Status: Active Protocol: Document 10/11/23 11:27 LRN (Rec: 10/11/23 12:22 LRN [id number]) Lumbar Spine Range of Motion Lumbar Spine Active Degrees Testing Position Standing Flexion 100 Extension 25 Rotation Left 20 Rotation Right 10 Lateral Flexion Left 33 Lateral Flexion Right 17 Hip Goniometric Range of Motion Hip Right Passive Testing Position Sitting Internal Rotation 45 External Rotation 30 Comments ROM was estimated Left Passive Testing Position Sitting Internal Rotation 45 External Rotation 25 Comments ROM was estimated PT-OP-M Strength Start: 10/08/23 19:49 Freq: Status: Active Protocol: Document 10/11/23 11:27 LRN (Rec: 10/11/23 12:22 LRN [id number]) Trunk Strength Trunk Manual Muscle Testing Core Stabilization Lacks core stability with hip ext and AB/AD Hip Strength Hip Manual Muscle Testing Right Adduction 2+ Poor+ External Rotation 3 Fair Comments Lower anterior pelvic pain with MMT. Left Extension (S1) 4+ Good+ External Rotation 3 Fair Comments Lower anterior pelvic pain with MMT. PT-OP-Q Treatments Start: 10/08/23 19:49 Freq: Status: Active Protocol: Document 11/08/23 10:32 LRN (Rec: 11/08/23 11:19 LRN [id number]) Therapeutic Exercises Supine Exercises Kegel/Ball/Breath Supine Exercise Name Kegel/Ball squeeze/Breath & Kegel/Ball/Breath/Hips in IR Side bilateral Equipment Used Ball Reps/Minutes 7' Comments Cuing to for coordination of exercise with breath/Kegel Kegel/TB/Breath Supine Exercise Name Kegel/TB/Breath Equipment Used L2 TB Reps/Minutes 5' Comments Cuing to for coordination of exercise with breath/Kegel Sitting Exercises Kegel/TB/breath Sitting Exercise Name Kegel/TB/Breath Side bilateral Equipment Used L2 TB Reps/Minutes 5' Comments Cuing to for coordination of exercise with breath/Kegel Kegel/Ball Squeeze/breath Sitting Exercise Name Kegel/Ball Squeeze/Breath & Kegel/Ball Squeeze/Breath/ Anter Pelvic Tilt(PT) Side bilateral Equipment Used Ball Reps/Minutes 6' Comments Cuing to for coordination of exercise with breath/Kegel & breath/Kegel/PT Self-Care/Home Management Treatment Education Other Education Discussed at length and educated pt in urinary delay techniqe. Discussed & reviewed vulvar/ genital care. Activities Self-Care/Home Management Activities Issued HO for urinary delay techinque. PT-OP-T Assessment and Plan Start: 10/08/23 19:49 Freq: Status: Active Protocol: Document 11/08/23 10:32 LRN (Rec: 11/08/23 11:19 LRN [id number]) Physical Therapy Assessment Goals Four Impairment Diastasis Rectus (DR) Impairment Umbilicus 2 above: Closed Umbilicus 1 above: 1.5 finger widths, shallow Umbilicus Umbilicus: 1 below: 1.5 finger widths, shallow Umbilicus: 2 below: 0.5 finger widths, shallow Umbilicus: 3 below: Closed. Short Term Goal (STG) Pt educated in self care to reduce DR (towel support for transfers). 11/08/23: Pt educated in use of towel for transfers to protect DR. STG Duration 2 wks-10/19/23 (11/08/23: MET GOAL) Motor Electrician Goal (LTG) Decrease signs of DR. LTG Duration 9 wks-12/10/23 Three Impairment PF pain limiting ability to return to prior level of function of exercise. Impairment Pelvic Floor pain with walking and crossing legs. Short Term Goal (STG) Eliminate pelvic pain with crossing legs and walking. STG Duration 4 wks-11/05/23 [facility] Goal (LTG) Start light exercise (walking w/o urinary leakage). Start back to exercise walking on level w/o PF pain. LTG Duration 9 wks-12/10/23 Two Impairment Urinary incontinence Impairment Urinary leakage with light and vigorous activity (brisk walking or on uneven ground). Short Term Goal (STG) Pt will be educated in urinary delay techinque. 11/08/23: Pt educated in urinary delay technique STG Duration 4 wks-11/05/23 (11/08/23: MET GOAL) [facility] Goal (LTG) Improve control over urinary incontinence with elimination of urinary leakage with walking. LTG Duration 9 wks-12/10/23 One Impairment Pt lacks an independent self care HEP. Short Term Goal (STG) Pt educated in proper transfers to lessen core abdominal pressure. 11/01/12: Pt educated in log roll transfer for DR protection, with exhale on TA tightening. STG Duration 3 wks-10/29/23 (11/01/23: MET GOAL) [facility] Goal (LTG) Pt will be independent in a self care HEP for PF strengthening. 10/14/23: HEP: PF/hip stretch: Piriformis stretch ( Knee to opp shdr), Wag the Tail, Happy Baby pose. LTG Duration 9 wks-12/10/23 progressed Assessment Summary Assessment Pt appears to understand urinary delay technique and how to transfer with towel to protect her DR. She had difficulty with core stab with March & heel slide, but improved to minimal loss of stability with training and pt concentration. Pt tends to hold breath with ex's and needs v cuing to coordinate ex . Physical Therapy Plan Frequency and Duration Frequency of Treatment 1x/Week Duration of treatment (weeks) 9 Plan of Care Start Date 10/11/23 Plan of Care End Date 12/10/23 Next Visit Focus/Plan Next Note Type Treatment Note Next Visit Plan NEXT: measure hip AB mobility and issue stretch ex (R>L). Education: Check for proper deep breathing, review breathing with transfers, proper body mechanics coordinating breathwork and Education: PF contractions with daily activities (proper squatting and lifting, sit to stand, and moving in bed). Review Posture & Body Mechanics Handout if pt demonstrates poor body mechanics. Review Bladder diary for hydration (educate) & voiding frequency and duration. Before sacral balancing, assess prone positioning affect on . Improve abdominal soft tissue (uterus/bladder/urachus) mobility. Ex: Kegel (without use of substitute muscles) with focus on PF relaxation, core/hip ( focus AD) strengthening, Ex & HEP: hip stretch (R hip AD, ER, flexors), trunk stretches (R rot & R SB) and LE roll in/out program. POC: Diastasis Rectus and IC rehab, Pubic Symphasis Dysfunction Rehab, Sacral balance, PF stretching.
--- NOTE | 2023-11-18 15:22 | PT.OTN ---
Current Diagnoses Muscle weakness (generalized) (11/18/23) Stress incontinence (female) (male) (11/18/23) Other female genital prolapse (11/18/23) Pelvic and perineal pain (11/18/23) Physical Therapy Treatment Note PT-OP-A Visit Information Start: 10/08/23 19:49 Freq: Status: Active Protocol: Document 11/18/23 13:00 LRN (Rec: 11/18/23 13:50 LRN [id number]) Out-Patient Physical Therapy Visit Information Visit Information Visit Type Treatment Note Visit Start Time 13:00 Visit Stop Time 13:49 Total Visit Minutes 49 Visit Number 05/10 Evaluation Information Evaluation Date 10/11/23 Precautions Precautions Parathyroid excised 10/15/22, current UTI. PT-OP-B Current Condition Start: 10/08/23 19:49 Freq: Status: Active Protocol: Document 10/11/23 11:27 LRN (Rec: 10/11/23 12:22 LRN [id number]) Current Condition History of Current Condition Onset Date 07/01/23 delivery of son (~10 wks post ) Current Complaints Pelvic pain daily. History of Current Condition First week after having baby had to go to hospital a lot, so had very little rest. Now having pain in the pelvic floor pain. Some days pain is all day and some days only with certain movements. If walking on uneven ground then can feel the pain. When walking briskly there is pain after a few minutes or sometimes right away. Pain SLS. Delayed pain onset with prolonged standing, either later in the day or the next day. At night if moving in bed (rolling to side) feels pain. No significant history of pain with first . Prior Treatments and Tests Currently has UTI and is using an [id number] medication, and adding melaleuca oil. Developmental History Developmental History 07/01/23-vaginal of son, 9#, 4 oz, minor tearing not requiring stitches. 2010-vaginal of son, 8#, 6oz. Big tear with delivery Treatment Goals Patient/Caregiver Goals Pt goals: Eliminate pelvic pain with crossing legs, walking. Start light exercise (walking w/o urinary leakage). Start back to exercise ( walking) Personal Factors Other Personal Factors That May Effect Frequent UTI's. Therapy/Recovery PT-OP-C Subjective Start: 10/08/23 19:49 Freq: Status: Active Protocol: Document 11/18/23 13:00 LRN (Rec: 11/18/23 13:50 LRN [id number]) OP-PT Subjective Patient Comments Patient Comments States she hasn't stretched for a week, so she is now again in pain and feels unlevel. Pain today in center of LB. Pain last week was from buttock up to LB. Had US and told she had vessels enlarged in uterus with more blood flow than usual causing the little bit of discharge. PT-OP-I Pelvic Floor Start: 10/08/23 19:49 Freq: Status: Active Protocol: Document 10/11/23 11:27 LRN (Rec: 10/11/23 12:22 LRN [id number]) Pelvic Floor Assessment Urine Urinary Symptoms Pain Other Urinary Symptoms Frequent urinary infections, 8x in the last year (currently with UTI) Leakage Size Large Leakage Cause Exercise Other Leakage Causes Urinary leakage with exercise, not on a daily basis. Voiding Frequency 10 Nocturia 2-3x Bowel Bowel Surgery No: Pt denies constipation Bowel Symptoms Pain Pelvic Clock Pelvic Clock 12-3 Tenderness Pelvic Clock 3-6 Tenderness Pelvic Clock 6-9 Tenderness Pelvic Clock 9-12 Tenderness Prolapse Cystocele Grade 1 Perineal Descent Resting Absent Contraction Ability Voluntary Contraction Moderate Voluntary Relaxation Moderate Manual Muscle Testing Left 3 Manual Muscle Testing Right 2 Manual Muscle Testing Anterior 3 Manual Muscle Testing Posterior 2 Muscle Endurance (Seconds) 4 Number of Quick Contractions In 10 9 Seconds Comments Pelvic Floor Comments Notable redness of Labia minora and vaginal. PT-OP-J Posture/Palpation/Skin Start: 10/08/23 19:49 Freq: Status: Active Protocol: Document 10/11/23 11:27 LRN (Rec: 10/11/23 12:22 LRN [id number]) Posture Evaluation Position Standing Head/C-Spine Posture Forward Head T-Spine Posture Increased Kyphosis L-Spine Posture Increased Lordosis,Shifted Right Shoulder Posture (L) Elevated Scapula Posture (R) Depressed Pelvis Posture Anteriorly Tilted Knee Posture (L) Genu Valgus,(R) Genu Valgus Comments Posture Comments Increased kyphosis at T6-T7, R OLGA is deep. Palpation Assessment Location Abdomen Palpation Location Abdomen Palpation Details Umbilicus 2 above: Closed Umbilicus 1 above: 1.5 finger widths, shallow Umbilicus Umbilicus: 1 below: 1.5 finger widths, shallow Umbilicus: 2 below: 0.5 finger widths, shallow Umbilicus: 3 below: Closed. Pubic bone Palpation Location Anterior Pubic bone Palpation Findings Tenderness PT-OP-K Range of Motion Start: 10/08/23 19:49 Freq: Status: Active Protocol: Document 11/18/23 13:00 LRN (Rec: 11/18/23 13:50 LRN [id number]) Hip Goniometric Range of Motion Hip Right Passive Testing Position Supine Abduction 30 Left Passive Testing Position Supine Abduction 30 PT-OP-M Strength Start: 10/08/23 19:49 Freq: Status: Active Protocol: Document 10/11/23 11:27 LRN (Rec: 10/11/23 12:22 LRN [id number]) Trunk Strength Trunk Manual Muscle Testing Core Stabilization Lacks core stability with hip ext and AB/AD Hip Strength Hip Manual Muscle Testing Right Adduction 2+ Poor+ External Rotation 3 Fair Comments Lower anterior pelvic pain with MMT. Left Extension (S1) 4+ Good+ External Rotation 3 Fair Comments Lower anterior pelvic pain with MMT. PT-OP-Q Treatments Start: 10/08/23 19:49 Freq: Status: Active Protocol: Document 11/18/23 13:00 LRN (Rec: 11/18/23 13:50 LRN [id number]) Therapeutic Exercises Supine Exercises LE roll in-out/breath/Kegel Supine Exercise Name LE roll in-out/breath/Kegel Reps/Minutes 6' Kegel/Ball/Breath Supine Exercise Name Kegel/Ball squeeze/Breath & Kegel/Ball/Breath/Hips in IR Side bilateral Equipment Used Ball Reps/Minutes 6' Comments Cuing to for coordination of exercise with breath/Kegel Kegel/TB/Breath Supine Exercise Name Kegel/TB/Breath Equipment Used L2 TB Reps/Minutes 6' Comments Cuing to for coordination of exercise with breath/Kegel Sitting Exercises Hip AD stretch 1 leg fwd Sitting Exercise Name Hip AD stretch 1 leg fwd on plinth Side bilateral Reps/Minutes 4' V-sit hip AD stretch Sitting Exercise Name On Floor: V-sit hip AD stretch Side bilateral Reps/Minutes 3' Other Exercises Hip AD stretch Other Exercise Name Standing Hip AD stretch Side bilateral Reps/Minutes 4' Therapeutic Activity Therapeutic Activity Positioning training Name Positioning education/trg for lying positions (primarily prone & slidelie) Reps/Minutes 8' Self-Care/Home Management Treatment Education Patient Education Home Exercise Program Other Education Educated pt in general proper hydration level for her wegiht of 220#. Pt educated in modifications for sidelying and prone lying. Discussed best postion for sleeping (supine or sidelie) with support under lateral trunk at level of small of back. Activities Self-Care/Home Management Activities Issued & reviewed HEP: Inner thigh stretching in longsit and standing; sitting hip ER & supine flexor stretch (leg off table w/SKTC), and HO for lying positions. PT-OP-T Assessment and Plan Start: 10/08/23 19:49 Freq: Status: Active Protocol: Document 11/18/23 13:00 LRN (Rec: 11/18/23 13:50 LRN [id number]) Physical Therapy Assessment Goals Four Impairment Diastasis Rectus (DR) Impairment Umbilicus 2 above: Closed Umbilicus 1 above: 1.5 finger widths, shallow Umbilicus Umbilicus: 1 below: 1.5 finger widths, shallow Umbilicus: 2 below: 0.5 finger widths, shallow Umbilicus: 3 below: Closed. Short Term Goal (STG) Pt educated in self care to reduce DR (towel support for transfers). 11/08/23: Pt educated in use of towel for transfers to protect DR. STG Duration 2 wks-10/19/23 (11/08/23: MET GOAL) Photocomposition Keyboard Operator Goal (LTG) Decrease signs of DR. LTG Duration 9 wks-12/10/23 Three Impairment PF pain limiting ability to return to prior level of function of exercise. Impairment Pelvic Floor pain with walking and crossing legs. Short Term Goal (STG) Eliminate pelvic pain with crossing legs and walking. STG Duration 4 wks-11/05/23 Detention Goal (LTG) Start light exercise (walking w/o urinary leakage). Start back to exercise walking on level w/o PF pain. LTG Duration 9 wks-12/10/23 Two Impairment Urinary incontinence Impairment Urinary leakage with light and vigorous activity (brisk walking or on uneven ground). Short Term Goal (STG) Pt will be educated in urinary delay techinque. 11/08/23: Pt educated in urinary delay technique STG Duration 4 wks-11/05/23 (11/08/23: MET GOAL) Detention Goal (LTG) Improve control over urinary incontinence with elimination of urinary leakage with walking. LTG Duration 9 wks-12/10/23 One Impairment Pt lacks an independent self care HEP. Short Term Goal (STG) Pt educated in proper transfers to lessen core abdominal pressure. 11/01/12: Pt educated in log roll transfer for DR protection, with exhale on TA tightening. STG Duration 3 wks-10/29/23 (11/01/23: MET GOAL) Detention Goal (LTG) Pt will be independent in a self care HEP for PF strengthening. 10/14/23: HEP: PF/hip stretch: Piriformis stretch ( Knee to opp shdr), Wag the Tail, Happy Baby pose. 11/18/23: HEP: hip stretch ( R hip AD, ER, flexors LTG Duration 9 wks-12/10/23 progressed Assessment Summary Assessment PF pain with tightness of her PF muscles, red irritated PF tissues, and UTI at start of rehab. Today, hip AD ROM shows symmetry of mobility, but pt feels the R hip is tighter. She has increased LBP with lack of stretching for a week. Physical Therapy Plan Frequency and Duration Frequency of Treatment 1x/Week Duration of treatment (weeks) 9 Plan of Care Start Date 10/11/23 Plan of Care End Date 12/10/23 Next Visit Focus/Plan Next Note Type Treatment Note Next Visit Plan NEXT: Review HEP issued (hip flexor, hip AD, hip ER stretch ). Education: Check for proper deep breathing. Review transfers with breathing, and proper body mechanics coordinating breathing; adding PF contractions with daily activities (proper squatting and lifting, sit to stand, and moving in bed). Review Posture & Body Mechanics Handout if pt demonstrates poor body mechanics. Bladder diary review for hydration levels & voiding frequency and duration. Before sacral balancing, assess prone positioning affect on . Improve abdominal soft tissue (uterus/bladder/urachus) mobility. Ex: Kegel (without use of substitute muscles) with focus on PF relaxation, core/hip ( focus AD) strengthening, Ex & HEP: trunk stretches (R rot & R SB) and LE roll in/out program. POC: Diastasis Rectus and IC rehab, Pubic Symphasis Dysfunction Rehab, Sacral balance, PF stretching.
--- NOTE | 2023-11-23 11:48 | PT-OP ANOTE ---
Pt DNS, message left informing pt of cx/dns policy and notifying pt on next appt.
--- NOTE | 2023-12-06 17:08 | PT.OTN ---
Current Diagnoses Muscle weakness (generalized) (12/06/23) Stress incontinence (female) (male) (12/06/23) Other female genital prolapse (12/06/23) Pelvic and perineal pain (12/06/23) Physical Therapy Treatment Note PT-OP-A Visit Information Start: 10/08/23 19:49 Freq: Status: Active Protocol: Document 12/06/23 10:35 LRN (Rec: 12/06/23 11:22 LRN [id number]) Out-Patient Physical Therapy Visit Information Visit Information Visit Type Progress Note Visit Start Time 10:35 Visit Stop Time 11:20 Total Visit Minutes 45 Visit Number 06/09 Evaluation Information Evaluation Date 10/11/23 Precautions Precautions Parathyroid excised 10/15/22, current UTI. PT-OP-B Current Condition Start: 10/08/23 19:49 Freq: Status: Active Protocol: Document 10/11/23 11:27 LRN (Rec: 10/11/23 12:22 LRN [id number]) Current Condition History of Current Condition Onset Date 07/01/23 delivery of son (~10 wks post ) Current Complaints Pelvic pain daily. History of Current Condition First week after having baby had to go to hospital a lot, so had very little rest. Now having pain in the pelvic floor pain. Some days pain is all day and some days only with certain movements. If walking on uneven ground then can feel the pain. When walking briskly there is pain after a few minutes or sometimes right away. Pain SLS. Delayed pain onset with prolonged standing, either later in the day or the next day. At night if moving in bed (rolling to side) feels pain. No significant history of pain with first . Prior Treatments and Tests Currently has UTI and is using an [id number]-aefdlwd medication, and adding melaleuca oil. Developmental History Developmental History 07/01/23-vaginal of son, 9#, 4 oz, minor tearing not requiring stitches. 2010-vaginal of son, 8#, 6oz. Big tear with delivery Treatment Goals Patient/Caregiver Goals Pt goals: Eliminate pelvic pain with crossing legs, walking. Start light exercise (walking w/o urinary leakage). Start back to exercise ( walking) Personal Factors Other Personal Factors That May Effect Frequent UTI's. Therapy/Recovery PT-OP-C Subjective Start: 10/08/23 19:49 Freq: Status: Active Protocol: Document 12/06/23 10:35 LRN (Rec: 12/06/23 11:22 LRN [id number]) OP-PT Subjective Patient Comments Patient Comments Hasn't been doing ex's consistently due to holidays. Baby has not been sleeping. Can walk w/o pain as long as walking slow and not uphill. Day to day, no leakage. Patient Questionnaires Pelvic Pain and Urgency/Frequency Patient Symptom Scale Pelvic Pain Score 16 (76% likelihood of +PST). (previous score 22=91% likelihood of + PST) PT-OP-I Pelvic Floor Start: 10/08/23 19:49 Freq: Status: Active Protocol: Document 10/11/23 11:27 LRN (Rec: 10/11/23 12:22 LRN [id number]) Pelvic Floor Assessment Urine Urinary Symptoms Pain Other Urinary Symptoms Frequent urinary infections, 8x in the last year (currently with UTI) Leakage Size Large Leakage Cause Exercise Other Leakage Causes Urinary leakage with exercise, not on a daily basis. Voiding Frequency 10 Nocturia 2-3x Bowel Bowel Surgery No: Pt denies constipation Bowel Symptoms Pain Pelvic Clock Pelvic Clock 12-3 Tenderness Pelvic Clock 3-6 Tenderness Pelvic Clock 6-9 Tenderness Pelvic Clock 9-12 Tenderness Prolapse Cystocele Grade 1 Perineal Descent Resting Absent Contraction Ability Voluntary Contraction Moderate Voluntary Relaxation Moderate Manual Muscle Testing Left 3 Manual Muscle Testing Right 2 Manual Muscle Testing Anterior 3 Manual Muscle Testing Posterior 2 Muscle Endurance (Seconds) 4 Number of Quick Contractions In 10 9 Seconds Comments Pelvic Floor Comments Notable redness of Labia minora and vaginal. PT-OP-J Posture/Palpation/Skin Start: 10/08/23 19:49 Freq: Status: Active Protocol: Document 12/06/23 10:35 LRN (Rec: 12/06/23 16:54 LRN [id number]) Palpation Assessment Location Abdomen Palpation Location Abdomen DR Palpation Details Umbilicus 2 above: Closed Umbilicus 1 above: 1.5 finger widths, very shallow Umbilicus Umbilicus: 1 below: 1.5 finger widths, very shallow Umbilicus: 2 below: Closed Umbilicus: 3 below: Closed. PT-OP-K Range of Motion Start: 10/08/23 19:49 Freq: Status: Active Protocol: Document 11/18/23 13:00 LRN (Rec: 11/18/23 13:50 LRN [id number]) Hip Goniometric Range of Motion Hip Right Passive Testing Position Supine Abduction 30 Left Passive Testing Position Supine Abduction 30 PT-OP-M Strength Start: 10/08/23 19:49 Freq: Status: Active Protocol: Document 10/11/23 11:27 LRN (Rec: 10/11/23 12:22 LRN [id number]) Trunk Strength Trunk Manual Muscle Testing Core Stabilization Lacks core stability with hip ext and AB/AD Hip Strength Hip Manual Muscle Testing Right Adduction 2+ Poor+ External Rotation 3 Fair Comments Lower anterior pelvic pain with MMT. Left Extension (S1) 4+ Good+ External Rotation 3 Fair Comments Lower anterior pelvic pain with MMT. PT-OP-Q Treatments Start: 10/08/23 19:49 Freq: Status: Active Protocol: Document 12/06/23 10:35 LRN (Rec: 12/06/23 11:22 LRN [id number]) Therapeutic Exercises Supine Exercises R Piriformis stretch Supine Exercise Name R Piriformis Side right Reps/Minutes 2' Ilipsoas stretch Supine Exercise Name Ilipsoas stretch Side right Reps/Minutes 2' TA tightening Supine Exercise Name TA tightening Reps/Minutes 6' Comments v cuing for neutral spine with tightening and assessed Standing Exercises Trunk Rot Standing Exercise Name Trunk Rot strengthening Side bilateral Equipment Used Lev 2 TB Reps/Minutes 10x each with extra time taken to modify and perform ex correctly. Comments Extra time to obtain pulling in of abdomen with ex and steady w/hips. Manual Therapy Treatment Soft Tissue Mobilization Hip AD's Body Location Bilateral Hip AD stretch Mobilization Type Myofascial Release,Strumming, Trigger Point Release Intensity/Depth Moderate Body Position Supine Self-Care/Home Management Treatment Activities Self-Care/Home Management Activities Issued & reviewed HEP: Trunk rot strengthening (andrew & ARROM) PT-OP-T Assessment and Plan Start: 10/08/23 19:49 Freq: Status: Active Protocol: Document 12/06/23 10:35 LRN (Rec: 12/06/23 11:22 LRN [id number]) Physical Therapy Assessment Rehab Potential Rehabilitation Potential Good Evaluation Complexity Number of Personal Factors/Comorbidities 1-2 Number of Body Systems Impaired 4 or More Clinical Presentation at Evaluation Evolving Impairments Impairments Activity Tolerance,Functional Mobility,Pain,Posture,ROM, Sensation,Soft Tissue Mobility ,Strength Goals Four Impairment Diastasis Rectus (DR) Impairment Umbilicus 2 above: Closed Umbilicus 1 above: 1.5 finger widths, shallow Umbilicus Umbilicus: 1 below: 1.5 finger widths, shallow Umbilicus: 2 below: 0.5 finger widths, shallow Umbilicus: 3 below: Closed. Short Term Goal (STG) Pt educated in self care to reduce DR (towel support for transfers). 11/08/23: Pt educated in use of towel for transfers to protect DR. STG Duration 2 wks-10/19/23 (11/08/23: MET GOAL) Manager Clinical Services Goal (LTG) Decrease signs of DR. 12/06/23: Decrease in DR opening. LTG Duration 8 more wks-02/04/24 Three Impairment PF pain limiting ability to return to prior level of function of exercise. Impairment Pelvic Floor pain with walking and crossing legs. Short Term Goal (STG) Eliminate pelvic pain with crossing legs and walking. 12/06/23: Walking-No pain. STG Duration 4 more wks-12/31/23 progressing 12/06/23 (pain only with crossing legs ) Prison Goal (LTG) Start light exercise (walking w/o urinary leakage). Start back to exercise walking on level w/o PF pain. 12/06/23: Walking and no urinary leakage w/o PF pain on flat areas. Going uphill sometimes and on slant has PF pain, might have leakage, but might be sweat. LTG Duration 8 more wks-02/04/24 progressing 12/06/23 Two Impairment Urinary incontinence Impairment Urinary leakage with light and vigorous activity (brisk walking or on uneven ground). Short Term Goal (STG) Pt will be educated in urinary delay techinque. 11/08/23: Pt educated in urinary delay technique STG Duration 4 wks-11/05/23 (11/08/23: MET GOAL) Prison Goal (LTG) Improve control over urinary incontinence with elimination of urinary leakage with walking. 12/06/23: Possible urinary leakage with walking fast and sometimes on inclines or slant on road. LTG Duration 8 more wks-02/04/24 progressing 12/06/23 One Impairment Pt lacks an independent self care HEP. Short Term Goal (STG) Pt educated in proper transfers to lessen core abdominal pressure. 11/01/12: Pt educated in log roll transfer for DR protection, with exhale on TA tightening. STG Duration 3 wks-10/29/23 (11/01/23: MET GOAL) Prison Goal (LTG) Pt will be independent in a self care HEP for PF strengthening. 10/14/23: HEP: PF/hip stretch: Piriformis stretch ( Knee to opp shdr), Wag the Tail, Happy Baby pose. 11/18/23: HEP: hip stretch ( R hip AD, ER, flexors) LTG Duration 8 more wks-02/04/24 progressed 11/18/23 Assessment Summary Assessment Pt initially presented with PF pain, tightness of her PF muscles and red irritated PF tissues. She is improving in continence, and is able to walk without urinary leakage and PF pain if on level and walking slowly. Today she demonstrated R hip AD tightness with active trP's. She needed modification to her HEP to obtain a stretch to her R Iliopsoas. Progress was hindered with the holidays; therefore the pt would benefit from continued skilled physical therapy to work towards achieving the above stated goals. Physical Therapy Plan Frequency and Duration Frequency of Treatment 1x/Week Duration of treatment (weeks) 8 Plan of Care Start Date 12/06/23 Plan of Care End Date 02/04/24 Therapeutic Interventions Therapeutic Interventions Home Exercise Program,Joint Mobilizations,Manual Therapy, Neuromuscular Re-education, Self-Care/Home Management,Soft Tissue Mobilization,Taping, Therapeutic Activities, Therapeutic Exercises Modalities Cold Pack/Ice Massage,Electric Stimulation,Hot Packs Next Visit Focus/Plan Next Note Type Treatment Note Next Visit Plan NEXT: Education: Check for proper deep breathing. Review transfers with breathing, and proper body mechanics coordinating breathing; ADD PF contractions with daily activities (proper squatting and lifting, sit to stand, and moving in bed). If pt demonstrates poor body mechanics, review Posture & Body Mechanics Handout. Bladder diary review for hydration levels & voiding frequency and duration. Before sacral balancing, assess prone positioning affect on . Improve abdominal soft tissue (uterus/bladder/urachus) mobility. Ex: Kegel (without use of substitute muscles) with focus on PF relaxation, core/hip ( focus AD) strengthening, Ex & HEP: trunk stretches (R rot & R SB) and LE roll in/out program. POC: Diastasis Rectus and IC rehab, Pubic Symphasis Dysfunction Rehab, Sacral balance, PF stretching.
--- NOTE | 2023-12-06 17:08 | PT.OPPOC ---
Physical, Occupational & Speech Therapy At [facility] Current Diagnoses Muscle weakness (generalized) (12/06/23) Stress incontinence (female) (male) (12/06/23) Other female genital prolapse (12/06/23) Pelvic and perineal pain (12/06/23) Visit Care Team Role Provider Type Maribel Peterson MD Family Provider Physician Primary Care Provider Specialty: Family Practice Address: [address] [place] [address], [place], [address] Email: [email or web address] Rehana Valles PA-C Attending Provider Advanced Client Services Specialist Referring Provider Specialty: Medical Address: [address] [place] [address], [address], [place], [address] Email: [email or web address] Plan Of Care PT-OP-T Assessment and Plan Start: 10/08/23 19:49 Freq: Status: Active Protocol: Document 12/06/23 10:35 LRN (Rec: 12/06/23 11:22 LRN [id number]) Physical Therapy Assessment Rehab Potential Rehabilitation Potential Good Evaluation Complexity Number of Personal Factors/Comorbidities 1-2 Number of Body Systems Impaired 4 or More Clinical Presentation at Evaluation Evolving Impairments Impairments Activity Tolerance,Functional Mobility,Pain,Posture,ROM, Sensation,Soft Tissue Mobility ,Strength Goals Four Impairment Diastasis Rectus (DR) Impairment Umbilicus 2 above: Closed Umbilicus 1 above: 1.5 finger widths, shallow Umbilicus Umbilicus: 1 below: 1.5 finger widths, shallow Umbilicus: 2 below: 0.5 finger widths, shallow Umbilicus: 3 below: Closed. Short Term Goal (STG) Pt educated in self care to reduce DR (towel support for transfers). 11/08/23: Pt educated in use of towel for transfers to protect DR. STG Duration 2 wks-10/19/23 (11/08/23: MET GOAL) Snf Goal (LTG) Decrease signs of DR. 12/06/23: Decrease in DR opening. LTG Duration 8 more wks-02/04/24 Three Impairment PF pain limiting ability to return to prior level of function of exercise. Impairment Pelvic Floor pain with walking and crossing legs. Short Term Goal (STG) Eliminate pelvic pain with crossing legs and walking. 12/06/23: Walking-No pain. STG Duration 4 more wks-12/31/23 progressing 12/06/23 (pain only with crossing legs ) Customer Advocacy Manager Goal (LTG) Start light exercise (walking w/o urinary leakage). Start back to exercise walking on level w/o PF pain. 12/06/23: Walking and no urinary leakage w/o PF pain on flat areas. Going uphill sometimes and on slant has PF pain, might have leakage, but might be sweat. LTG Duration 8 more wks-02/04/24 progressing 12/06/23 Two Impairment Urinary incontinence Impairment Urinary leakage with light and vigorous activity (brisk walking or on uneven ground). Short Term Goal (STG) Pt will be educated in urinary delay techinque. 11/08/23: Pt educated in urinary delay technique STG Duration 4 wks-11/05/23 (11/08/23: MET GOAL) Customer Advocacy Manager Goal (LTG) Improve control over urinary incontinence with elimination of urinary leakage with walking. 12/06/23: Possible urinary leakage with walking fast and sometimes on inclines or slant on road. LTG Duration 8 more wks-02/04/24 progressing 12/06/23 One Impairment Pt lacks an independent self care HEP. Short Term Goal (STG) Pt educated in proper transfers to lessen core abdominal pressure. 11/01/12: Pt educated in log roll transfer for DR protection, with exhale on TA tightening. STG Duration 3 wks-10/29/23 (11/01/23: MET GOAL) Snf Goal (LTG) Pt will be independent in a self care HEP for PF strengthening. 10/14/23: HEP: PF/hip stretch: Piriformis stretch ( Knee to opp shdr), Wag the Tail, Happy Baby pose. 11/18/23: HEP: hip stretch ( R hip AD, ER, flexors) LTG Duration 8 more wks-02/04/24 progressed 11/18/23 Assessment Summary Assessment Pt initially presented with PF pain, tightness of her PF muscles and red irritated PF tissues. She is improving in continence, and is able to walk without urinary leakage and PF pain if on level and walking slowly. Today she demonstrated R hip AD tightness with active trP's. She needed modification to her HEP to obtain a stretch to her R Iliopsoas. Progress was hindered with the holidays; therefore the pt would benefit from continued skilled physical therapy to work towards achieving the above stated goals. Physical Therapy Plan Frequency and Duration Frequency of Treatment 1x/Week Duration of treatment (weeks) 8 Plan of Care Start Date 12/06/23 Plan of Care End Date 02/04/24 Therapeutic Interventions Therapeutic Interventions Home Exercise Program,Joint Mobilizations,Manual Therapy, Neuromuscular Re-education, Self-Care/Home Management,Soft Tissue Mobilization,Taping, Therapeutic Activities, Therapeutic Exercises Modalities Cold Pack/Ice Massage,Electric Stimulation,Hot Packs Next Visit Focus/Plan Next Note Type Treatment Note Next Visit Plan NEXT: Education: Check for proper deep breathing. Review transfers with breathing, and proper body mechanics coordinating breathing; ADD PF contractions with daily activities (proper squatting and lifting, sit to stand, and moving in bed). If pt demonstrates poor body mechanics, review Posture & Body Mechanics Handout. Bladder diary review for hydration levels & voiding frequency and duration. Before sacral balancing, assess prone positioning affect on . Improve abdominal soft tissue (uterus/bladder/urachus) mobility. Ex: Kegel (without use of substitute muscles) with focus on PF relaxation, core/hip ( focus AD) strengthening, Ex & HEP: trunk stretches (R rot & R SB) and LE roll in/out program. POC: Diastasis Rectus and IC rehab, Pubic Symphasis Dysfunction Rehab, Sacral balance, PF stretching. Plan of Care Dates Plan of Care Start Date 12/06/23 Plan of Care End Date 02/04/24 Electronically Signed by: Marybeth Lester, PT 12/06/23 1561 If you are in agreement with this Plan of Care, please return a signed and dated copy. I have reviewed this Plan of Care and certify that the skilled therapy services above are required to meet the patient?s needs. Physician Signature Date Printed Name and Credentials Clinical Instructor Signature Printed Name and Credentials
--- NOTE | 2023-12-17 16:24 | PT.OTN ---
Current Diagnoses Muscle weakness (generalized) (12/17/23) Stress incontinence (female) (male) (12/17/23) Other female genital prolapse (12/17/23) Pelvic and perineal pain (12/17/23) Physical Therapy Treatment Note PT-OP-A Visit Information Start: 10/08/23 19:49 Freq: Status: Active Protocol: Document 12/17/23 13:07 LRN (Rec: 12/17/23 13:56 LRN [id number]) Out-Patient Physical Therapy Visit Information Visit Information Visit Type Treatment Note Visit Start Time 13:07 Visit Stop Time 13:54 Total Visit Minutes 47 Visit Number 07/10 Evaluation Information Evaluation Date 10/11/23 Precautions Precautions Parathyroid excised 10/15/22, current UTI. PT-OP-B Current Condition Start: 10/08/23 19:49 Freq: Status: Active Protocol: Document 10/11/23 11:27 LRN (Rec: 10/11/23 12:22 LRN [id number]) Current Condition History of Current Condition Onset Date 07/01/23 delivery of son (~10 wks post ) Current Complaints Pelvic pain daily. History of Current Condition First week after having baby had to go to hospital a lot, so had very little rest. Now having pain in the pelvic floor pain. Some days pain is all day and some days only with certain movements. If walking on uneven ground then can feel the pain. When walking briskly there is pain after a few minutes or sometimes right away. Pain SLS. Delayed pain onset with prolonged standing, either later in the day or the next day. At night if moving in bed (rolling to side) feels pain. No significant history of pain with first . Prior Treatments and Tests Currently has UTI and is using an [id number] medication, and adding melaleuca oil. Developmental History Developmental History 07/01/23-vaginal of son, 9#, 4 oz, minor tearing not requiring stitches. 2010-vaginal of son, 8#, 6oz. Big tear with delivery Treatment Goals Patient/Caregiver Goals Pt goals: Eliminate pelvic pain with crossing legs, walking. Start light exercise (walking w/o urinary leakage). Start back to exercise ( walking) Personal Factors Other Personal Factors That May Effect Frequent UTI's. Therapy/Recovery PT-OP-C Subjective Start: 10/08/23 19:49 Freq: Status: Active Protocol: Document 12/17/23 13:07 LRN (Rec: 12/17/23 13:56 LRN [id number]) OP-PT Subjective Patient Comments Patient Comments Able to walk 30' on TM @ 2.5 mph on 6% to increase HR ( haven't on on level). Increased incline to 8% @ 2.7 mph and started to have R inner groin pain, when returned to prior, then pain went away. When walks neighborhood, she has R groin pain. PT-OP-I Pelvic Floor Start: 10/08/23 19:49 Freq: Status: Active Protocol: Document 10/11/23 11:27 LRN (Rec: 10/11/23 12:22 LRN [id number]) Pelvic Floor Assessment Urine Urinary Symptoms Pain Other Urinary Symptoms Frequent urinary infections, 8x in the last year (currently with UTI) Leakage Size Large Leakage Cause Exercise Other Leakage Causes Urinary leakage with exercise, not on a daily basis. Voiding Frequency 10 Nocturia 2-3x Bowel Bowel Surgery No: Pt denies constipation Bowel Symptoms Pain Pelvic Clock Pelvic Clock 12-3 Tenderness Pelvic Clock 3-6 Tenderness Pelvic Clock 6-9 Tenderness Pelvic Clock 9-12 Tenderness Prolapse Cystocele Grade 1 Perineal Descent Resting Absent Contraction Ability Voluntary Contraction Moderate Voluntary Relaxation Moderate Manual Muscle Testing Left 3 Manual Muscle Testing Right 2 Manual Muscle Testing Anterior 3 Manual Muscle Testing Posterior 2 Muscle Endurance (Seconds) 4 Number of Quick Contractions In 10 9 Seconds Comments Pelvic Floor Comments Notable redness of Labia minora and vaginal. PT-OP-J Posture/Palpation/Skin Start: 10/08/23 19:49 Freq: Status: Active Protocol: Document 12/17/23 13:07 LRN (Rec: 12/17/23 13:56 LRN [id number]) Palpation Assessment Location Abdomen Palpation Location Abdomen DR Palpation Details Umbilicus 2 above: Closed Umbilicus 1 above: 0.5 finger widths, very, very shallow Umbilicus Umbilicus: 1 below: Closed Umbilicus: 2 below: Closed Umbilicus: 3 below: Closed. PT-OP-K Range of Motion Start: 10/08/23 19:49 Freq: Status: Active Protocol: Document 11/18/23 13:00 LRN (Rec: 11/18/23 13:50 LRN [id number]) Hip Goniometric Range of Motion Hip Right Passive Testing Position Supine Abduction 30 Left Passive Testing Position Supine Abduction 30 PT-OP-M Strength Start: 10/08/23 19:49 Freq: Status: Active Protocol: Document 10/11/23 11:27 LRN (Rec: 10/11/23 12:22 LRN [id number]) Trunk Strength Trunk Manual Muscle Testing Core Stabilization Lacks core stability with hip ext and AB/AD Hip Strength Hip Manual Muscle Testing Right Adduction 2+ Poor+ External Rotation 3 Fair Comments Lower anterior pelvic pain with MMT. Left Extension (S1) 4+ Good+ External Rotation 3 Fair Comments Lower anterior pelvic pain with MMT. PT-OP-Q Treatments Start: 10/08/23 19:49 Freq: Status: Active Protocol: Document 12/17/23 13:07 LRN (Rec: 12/17/23 13:56 LRN [id number]) Therapeutic Exercises Supine Exercises TA tightening Supine Exercise Name TA tightening concentrating in upper TA's Reps/Minutes 3' Sidelying Exercises TA tightening Sidelying Exercise Name TA tightening Side bilateral Reps/Minutes 6' Sitting Exercises BKFO/PF/TA/Breath Sitting Exercise Name BKFO/PF/TA/Breath Side bilateral Reps/Minutes 10x 3 w/sit rest btn sets. Comments V cuing for breath coordination with exer. Deep Breathing Sitting Exercise Name Deep Breathing Reps/Minutes 4' Comments Cued to monitor with hand on chest and abdomen. Standing Exercises Pelvic Tilts Standing Exercise Name A/P & Side to side Pelvic tilts Side bilateral Reps/Minutes 6' Therapeutic Activity Therapeutic Activity Lifting Name Lifting baby from carrier and positioning carrier for baby Reps/Minutes 10' Comments Pt needed cuing for posture positioning & cuing for core stab/PF contraction and breath . Manual Therapy Treatment Soft Tissue Mobilization Hip AD's Body Location R hip AD Mobilization Type Strumming Intensity/Depth Moderate Body Position Supine Comments Tender in Hip AD Self-Care/Home Management Treatment Education Other Education Pt educated in self assessment of DR. PT-OP-T Assessment and Plan Start: 10/08/23 19:49 Freq: Status: Active Protocol: Document 12/17/23 13:07 LRN (Rec: 12/17/23 13:56 LRN [id number]) Physical Therapy Assessment Goals Four Impairment Diastasis Rectus (DR) Impairment Umbilicus 2 above: Closed Umbilicus 1 above: 1.5 finger widths, shallow Umbilicus Umbilicus: 1 below: 1.5 finger widths, shallow Umbilicus: 2 below: 0.5 finger widths, shallow Umbilicus: 3 below: Closed. Short Term Goal (STG) Pt educated in self care to reduce DR (towel support for transfers). 11/08/23: Pt educated in use of towel for transfers to protect DR. STG Duration 2 wks-10/19/23 (11/08/23: MET GOAL) [facility] Goal (LTG) Decrease signs of DR. 12/06/23: Decrease in DR opening. 12/17/23: DR almost closed. Open only 1 above umbilicus: 0.5 fingerwidth. LTG Duration 8 more wks-02/04/24 (: MET GOAL) Three Impairment PF pain limiting ability to return to prior level of function of exercise. Impairment Pelvic Floor pain with walking and crossing legs. Short Term Goal (STG) Eliminate pelvic pain with crossing legs and walking. 12/06/23: Walking-No pain. 12/17/23: Must assist R leg to cross, then has pain in groin that is dull achy. STG Duration 4 more wks-12/31/23 progressing 12/06/23 (pain only with crossing legs ) [facility] Goal (LTG) Start light exercise (walking w/o urinary leakage). Start back to exercise walking on level w/o PF pain. 12/06/23: Walking and no urinary leakage w/o PF pain on flat areas. Going uphill sometimes and on slant has PF pain, might have leakage, but might be sweat. 12/17/23: Doesn't think she leaks with walking, only sweats. LTG Duration 8 more wks-02/04/24 12/17/23: Goal partially met (need walking w/o PF pn) Two Impairment Urinary incontinence Impairment Urinary leakage with light and vigorous activity (brisk walking or on uneven ground). Short Term Goal (STG) Pt will be educated in urinary delay techinque. 11/08/23: Pt educated in urinary delay technique STG Duration 4 wks-11/05/23 (11/08/23: MET GOAL) [facility] Goal (LTG) Improve control over urinary incontinence with elimination of urinary leakage with walking. 12/06/23: Possible urinary leakage with walking fast and sometimes on inclines or slant on road. LTG Duration 8 more wks-02/04/24 (: MET GOAL for level ground ) One Impairment Pt lacks an independent self care HEP. Short Term Goal (STG) Pt educated in proper transfers to lessen core abdominal pressure. 11/01/12: Pt educated in log roll transfer for DR protection, with exhale on TA tightening. STG Duration 3 wks-10/29/23 (11/01/23: MET GOAL) [facility] Goal (LTG) Pt will be independent in a self care HEP for PF strengthening. 10/14/23: HEP: PF/hip stretch: Piriformis stretch ( Knee to opp shdr), Wag the Tail, Happy Baby pose. 11/18/23: HEP: hip stretch ( R hip AD, ER, flexors) LTG Duration 8 more wks-02/04/24 progressed 11/18/23 Assessment Summary Assessment Pt is following proper body mechanics, transfers with breathing, and can do a proper deep breath. 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 Pain in R groin/hip AD possibly due to Pubic Symphysis radicular pain. Physical Therapy Plan Frequency and Duration Frequency of Treatment 1x/Week Duration of treatment (weeks) 8 Plan of Care Start Date 12/06/23 Plan of Care End Date 02/04/24 Next Visit Focus/Plan Next Note Type Treatment Note Next Visit Plan NEXT: Review ADL body mechanics coordinating breathing & ADD PF contractions with daily activities (proper squatting and lifting, sit to stand, and moving in bed). If pt demonstrates poor body mechanics, review Posture & Body Mechanics Handout. Bladder diary review for hydration levels & voiding frequency and duration. Before sacral balancing, assess prone positioning affect on . Improve abdominal soft tissue (uterus/bladder/urachus) mobility. Ex: Kegel (without use of substitute muscles) with focus on PF relaxation, core/hip ( focus AD) strengthening, Ex & HEP: trunk stretches (R rot & R SB) and LE roll in/out program. POC: IC rehab, Pubic Symphasis Dysfunction Rehab, Sacral balance, PF stretching.
--- NOTE | 2023-12-20 15:19 | PT.OTN ---
Current Diagnoses Muscle weakness (generalized) (12/20/23) Stress incontinence (female) (male) (12/20/23) Other female genital prolapse (12/20/23) Pelvic and perineal pain (12/20/23) Physical Therapy Treatment Note PT-OP-A Visit Information Start: 10/08/23 19:49 Freq: Status: Active Protocol: Document 12/20/23 10:36 LRN (Rec: 12/20/23 11:15 LRN [id number]) Out-Patient Physical Therapy Visit Information Visit Information Visit Type Treatment Note Visit Start Time 10:36 Visit Stop Time 11:10 Total Visit Minutes 34 Visit Number 08/10 Evaluation Information Evaluation Date 10/11/23 Precautions Precautions Parathyroid excised 10/15/22, current UTI. PT-OP-B Current Condition Start: 10/08/23 19:49 Freq: Status: Active Protocol: Document 10/11/23 11:27 LRN (Rec: 10/11/23 12:22 LRN [id number]) Current Condition History of Current Condition Onset Date 07/01/23 delivery of son (~10 wks post ) Current Complaints Pelvic pain daily. History of Current Condition First week after having baby had to go to hospital a lot, so had very little rest. Now having pain in the pelvic floor pain. Some days pain is all day and some days only with certain movements. If walking on uneven ground then can feel the pain. When walking briskly there is pain after a few minutes or sometimes right away. Pain SLS. Delayed pain onset with prolonged standing, either later in the day or the next day. At night if moving in bed (rolling to side) feels pain. No significant history of pain with first . Prior Treatments and Tests Currently has UTI and is using an [id number] medication, and adding melaleuca oil. Developmental History Developmental History 07/01/23-vaginal of son, 9#, 4 oz, minor tearing not requiring stitches. 2010-vaginal of son, 8#, 6oz. Big tear with delivery Treatment Goals Patient/Caregiver Goals Pt goals: Eliminate pelvic pain with crossing legs, walking. Start light exercise (walking w/o urinary leakage). Start back to exercise ( walking) Personal Factors Other Personal Factors That May Effect Frequent UTI's. Therapy/Recovery PT-OP-C Subjective Start: 10/08/23 19:49 Freq: Status: Active Protocol: Document 12/20/23 10:36 LRN (Rec: 12/20/23 11:15 LRN [id number]) OP-PT Subjective Patient Comments Patient Comments States she is sore in abdomen with exercise. PT-OP-I Pelvic Floor Start: 10/08/23 19:49 Freq: Status: Active Protocol: Document 10/11/23 11:27 LRN (Rec: 10/11/23 12:22 LRN [id number]) Pelvic Floor Assessment Urine Urinary Symptoms Pain Other Urinary Symptoms Frequent urinary infections, 8x in the last year (currently with UTI) Leakage Size Large Leakage Cause Exercise Other Leakage Causes Urinary leakage with exercise, not on a daily basis. Voiding Frequency 10 Nocturia 2-3x Bowel Bowel Surgery No: Pt denies constipation Bowel Symptoms Pain Pelvic Clock Pelvic Clock 12-3 Tenderness Pelvic Clock 3-6 Tenderness Pelvic Clock 6-9 Tenderness Pelvic Clock 9-12 Tenderness Prolapse Cystocele Grade 1 Perineal Descent Resting Absent Contraction Ability Voluntary Contraction Moderate Voluntary Relaxation Moderate Manual Muscle Testing Left 3 Manual Muscle Testing Right 2 Manual Muscle Testing Anterior 3 Manual Muscle Testing Posterior 2 Muscle Endurance (Seconds) 4 Number of Quick Contractions In 10 9 Seconds Comments Pelvic Floor Comments Notable redness of Labia minora and vaginal. PT-OP-J Posture/Palpation/Skin Start: 10/08/23 19:49 Freq: Status: Active Protocol: Document 12/17/23 13:07 LRN (Rec: 12/17/23 13:56 LRN [id number]) Palpation Assessment Location Abdomen Palpation Location Abdomen DR Palpation Details Umbilicus 2 above: Closed Umbilicus 1 above: 0.5 finger widths, very, very shallow Umbilicus Umbilicus: 1 below: Closed Umbilicus: 2 below: Closed Umbilicus: 3 below: Closed. PT-OP-K Range of Motion Start: 10/08/23 19:49 Freq: Status: Active Protocol: Document 11/18/23 13:00 LRN (Rec: 11/18/23 13:50 LRN [id number]) Hip Goniometric Range of Motion Hip Right Passive Testing Position Supine Abduction 30 Left Passive Testing Position Supine Abduction 30 PT-OP-M Strength Start: 10/08/23 19:49 Freq: Status: Active Protocol: Document 10/11/23 11:27 LRN (Rec: 10/11/23 12:22 LRN [id number]) Trunk Strength Trunk Manual Muscle Testing Core Stabilization Lacks core stability with hip ext and AB/AD Hip Strength Hip Manual Muscle Testing Right Adduction 2+ Poor+ External Rotation 3 Fair Comments Lower anterior pelvic pain with MMT. Left Extension (S1) 4+ Good+ External Rotation 3 Fair Comments Lower anterior pelvic pain with MMT. PT-OP-Q Treatments Start: 10/08/23 19:49 Freq: Status: Active Protocol: Document 12/20/23 10:36 LRN (Rec: 12/20/23 11:15 LRN [id number]) Therapeutic Exercises Supine Exercises Kegel/Ball/Breath Supine Exercise Name Kegel/Ball squeeze/Breath & Kegel/Ball/Breath/Hips in IR Side bilateral Equipment Used Ball Reps/Minutes 3' Comments Cuing to for coordination of exercise with breath/Kegel Kegel/TB/Breath Supine Exercise Name Kegel/TB/Breath Equipment Used L2 TB Reps/Minutes 3' Comments Cuing to for coordination of exercise with breath/Kegel TA tightening Supine Exercise Name TA tightening - hands/knees push Equipment Used ball/pillow on thighs Reps/Minutes 3' Sidelying Exercises TA tightening Sidelying Exercise Name TA tightening Side bilateral Reps/Minutes 6' Manual Therapy Treatment Soft Tissue Mobilization Hip AD's Body Location Michael hip AD Mobilization Type Strumming Intensity/Depth Moderate Body Position Supine Comments Tender in Hip AD PT-OP-T Assessment and Plan Start: 10/08/23 19:49 Freq: Status: Active Protocol: Document 12/20/23 10:36 LRN (Rec: 12/20/23 11:15 LRN [id number]) Physical Therapy Assessment Goals Four Impairment Diastasis Rectus (DR) Impairment Umbilicus 2 above: Closed Umbilicus 1 above: 1.5 finger widths, shallow Umbilicus Umbilicus: 1 below: 1.5 finger widths, shallow Umbilicus: 2 below: 0.5 finger widths, shallow Umbilicus: 3 below: Closed. Short Term Goal (STG) Pt educated in self care to reduce DR (towel support for transfers). 11/08/23: Pt educated in use of towel for transfers to protect DR. STG Duration 2 wks-10/19/23 (11/08/23: MET GOAL) Genetics Physician Goal (LTG) Decrease signs of DR. 12/06/23: Decrease in DR opening. 12/17/23: DR almost closed. Open only 1 above umbilicus: 0.5 fingerwidth. LTG Duration 8 more wks-02/04/24 (: MET GOAL) Three Impairment PF pain limiting ability to return to prior level of function of exercise. Impairment Pelvic Floor pain with walking and crossing legs. Short Term Goal (STG) Eliminate pelvic pain with crossing legs and walking. 12/06/23: Walking-No pain. 12/17/23: Must assist R leg to cross, then has pain in groin that is dull achy. STG Duration 4 more wks-12/31/23 progressing 12/06/23 (pain only with crossing legs ) Skilled Nursing Goal (LTG) Start light exercise (walking w/o urinary leakage). Start back to exercise walking on level w/o PF pain. 12/06/23: Walking and no urinary leakage w/o PF pain on flat areas. Going uphill sometimes and on slant has PF pain, might have leakage, but might be sweat. 12/17/23: Doesn't think she leaks with walking, only sweats. LTG Duration 8 more wks-02/04/24 12/17/23: Goal partially met (need walking w/o PF pn) Two Impairment Urinary incontinence Impairment Urinary leakage with light and vigorous activity (brisk walking or on uneven ground). Short Term Goal (STG) Pt will be educated in urinary delay techinque. 11/08/23: Pt educated in urinary delay technique STG Duration 4 wks-11/05/23 (11/08/23: MET GOAL) Genetics Physician Goal (LTG) Improve control over urinary incontinence with elimination of urinary leakage with walking. 12/06/23: Possible urinary leakage with walking fast and sometimes on inclines or slant on road. LTG Duration 8 more wks-02/04/24 (: MET GOAL for level ground ) One Impairment Pt lacks an independent self care HEP. Short Term Goal (STG) Pt educated in proper transfers to lessen core abdominal pressure. 11/01/12: Pt educated in log roll transfer for DR protection, with exhale on TA tightening. STG Duration 3 wks-10/29/23 (11/01/23: MET GOAL) Genetics Physician Goal (LTG) Pt will be independent in a self care HEP for PF strengthening. 10/14/23: HEP: PF/hip stretch: Piriformis stretch ( Knee to opp shdr), Wag the Tail, Happy Baby pose. 11/18/23: HEP: hip stretch ( R hip AD, ER, flexors) LTG Duration 8 more wks-02/04/24 progressed 11/18/23 Assessment Summary Assessment Pt for IC rehab, Pubic Symphasis Dysfunction Rehab, PF tenderness/tightness. Pt initially presented with PF pain, tightness of her PF muscles and red irritated PF tissues. Pt has hip AD tightness, R>L. She has weakness of her TA. Assessment of PF tightness/ pain is needed. Physical Therapy Plan Frequency and Duration Frequency of Treatment 1x/Week Duration of treatment (weeks) 8 Plan of Care Start Date 12/06/23 Plan of Care End Date 02/04/24 Next Visit Focus/Plan Next Note Type Progress Note Next Visit Plan NEXT: Check pt's ADL body mechanics coordinating breathing. If pt demonstrates poor body mechanics, review Posture & Body Mechanics Handout. Assess for PF tightness/pain. Add PF stretches and pt to get relaxation with daily activities (proper squatting and lifting, sit to stand, and moving in bed). Sacral balance, before sacral balancing assess prone positioning affect on Improve abdominal soft tissue (uterus/bladder/urachus) mobility, . Ex & HEP: PF stretching & trunk stretches (R rot & R SB) . ?Bladder diary review for hydration levels & voiding frequency and duration. Ex: Kegel (without use of substitute muscles) with focus on PF relaxation, core/hip ( focus AD) strengthening, POC: IC rehab, Pubic Symphasis Dysfunction Rehab, PF stretching.
--- NOTE | 2023-12-31 17:09 | PT.OTN ---
Current Diagnoses Muscle weakness (generalized) (12/31/23) Stress incontinence (female) (male) (12/31/23) Other female genital prolapse (12/31/23) Pelvic and perineal pain (12/31/23) Physical Therapy Treatment Note PT-OP-A Visit Information Start: 10/08/23 19:49 Freq: Status: Active Protocol: Document 12/31/23 09:51 LRN (Rec: 12/31/23 10:33 LRN [id number]) Out-Patient Physical Therapy Visit Information Visit Information Visit Type Treatment Note Visit Note 4 after PN Visit Start Time 09:51 Visit Stop Time 10:29 Visit Number 09/09 Evaluation Information Evaluation Date 10/11/23 Precautions Precautions Parathyroid excised 10/15/22, current UTI. PT-OP-B Current Condition Start: 10/08/23 19:49 Freq: Status: Active Protocol: Document 10/11/23 11:27 LRN (Rec: 10/11/23 12:22 LRN [id number]) Current Condition History of Current Condition Onset Date 07/01/23 delivery of son (~10 wks post ) Current Complaints Pelvic pain daily. History of Current Condition First week after having baby had to go to hospital a lot, so had very little rest. Now having pain in the pelvic floor pain. Some days pain is all day and some days only with certain movements. If walking on uneven ground then can feel the pain. When walking briskly there is pain after a few minutes or sometimes right away. Pain SLS. Delayed pain onset with prolonged standing, either later in the day or the next day. At night if moving in bed (rolling to side) feels pain. No significant history of pain with first . Prior Treatments and Tests Currently has UTI and is using an [id number] medication, and adding melaleuca oil. Developmental History Developmental History 07/01/23-vaginal of son, 9#, 4 oz, minor tearing not requiring stitches. 2010-vaginal of son, 8#, 6oz. Big tear with delivery Treatment Goals Patient/Caregiver Goals Pt goals: Eliminate pelvic pain with crossing legs, walking. Start light exercise (walking w/o urinary leakage). Start back to exercise ( walking) Personal Factors Other Personal Factors That May Effect Frequent UTI's. Therapy/Recovery PT-OP-C Subjective Start: 10/08/23 19:49 Freq: Status: Active Protocol: Document 12/31/23 09:51 LRN (Rec: 12/31/23 10:33 LRN [id number]) OP-PT Subjective Patient Comments Patient Comments States she and baby has not slept well. States she is having less pain in PF, but had pain [place] (4 days ago) [place], [place] get to [place], was carrying baby. Has not had the PF pain since. Doesn't have PF pain walking along the neighborhood . PT-OP-I Pelvic Floor Start: 10/08/23 19:49 Freq: Status: Active Protocol: Document 10/11/23 11:27 LRN (Rec: 10/11/23 12:22 LRN [id number]) Pelvic Floor Assessment Urine Urinary Symptoms Pain Other Urinary Symptoms Frequent urinary infections, 8x in the last year (currently with UTI) Leakage Size Large Leakage Cause Exercise Other Leakage Causes Urinary leakage with exercise, not on a daily basis. Voiding Frequency 10 Nocturia 2-3x Bowel Bowel Surgery No: Pt denies constipation Bowel Symptoms Pain Pelvic Clock Pelvic Clock 12-3 Tenderness Pelvic Clock 3-6 Tenderness Pelvic Clock 6-9 Tenderness Pelvic Clock 9-12 Tenderness Prolapse Cystocele Grade 1 Perineal Descent Resting Absent Contraction Ability Voluntary Contraction Moderate Voluntary Relaxation Moderate Manual Muscle Testing Left 3 Manual Muscle Testing Right 2 Manual Muscle Testing Anterior 3 Manual Muscle Testing Posterior 2 Muscle Endurance (Seconds) 4 Number of Quick Contractions In 10 9 Seconds Comments Pelvic Floor Comments Notable redness of Labia minora and vaginal. PT-OP-J Posture/Palpation/Skin Start: 10/08/23 19:49 Freq: Status: Active Protocol: Document 12/17/23 13:07 LRN (Rec: 12/17/23 13:56 LRN [id number]) Palpation Assessment Location Abdomen Palpation Location Abdomen DR Palpation Details Umbilicus 2 above: Closed Umbilicus 1 above: 0.5 finger widths, very, very shallow Umbilicus Umbilicus: 1 below: Closed Umbilicus: 2 below: Closed Umbilicus: 3 below: Closed. PT-OP-K Range of Motion Start: 10/08/23 19:49 Freq: Status: Active Protocol: Document 11/18/23 13:00 LRN (Rec: 11/18/23 13:50 LRN [id number]) Hip Goniometric Range of Motion Hip Right Passive Testing Position Supine Abduction 30 Left Passive Testing Position Supine Abduction 30 PT-OP-M Strength Start: 10/08/23 19:49 Freq: Status: Active Protocol: Document 10/11/23 11:27 LRN (Rec: 10/11/23 12:22 LRN [id number]) Trunk Strength Trunk Manual Muscle Testing Core Stabilization Lacks core stability with hip ext and AB/AD Hip Strength Hip Manual Muscle Testing Right Adduction 2+ Poor+ External Rotation 3 Fair Comments Lower anterior pelvic pain with MMT. Left Extension (S1) 4+ Good+ External Rotation 3 Fair Comments Lower anterior pelvic pain with MMT. PT-OP-Q Treatments Start: 10/08/23 19:49 Freq: Status: Active Protocol: Document 12/31/23 09:51 LRN (Rec: 12/31/23 10:33 LRN [id number]) Therapeutic Exercises Supine Exercises BKFO Supine Exercise Name Michael BKFO Side bilateral Reps/Minutes 3x Comments Pt I/S to do when R hip AD pain Standing Exercises Hip Flexor stretch Standing Exercise Name Hip Flexor stretch Side bilateral Reps/Minutes 6' Manual Therapy Treatment Soft Tissue Mobilization Hip AD's Body Location R hip AD Mobilization Type Strumming,Sustained Pressure, Trigger Point Release Body Position Supine Self-Care/Home Management Treatment Education Patient Education Body Mechanics,Posture Other Education Reviewed & educated pt in coordinating breathing with ADL body mechanics, and with transfers. Reviewed with pt and discussed posture and areas of correction for pt to be aware of. Discussed pt wearing of shoes that could provide arch support for her feet.Post Activities Self-Care/Home Management Activities Issued handouts for: Changes in posture related to , ADL body mechanics and transfer stand<>sit<> supine to protect back and to coordinate Kegel/breath with transfer. PT-OP-T Assessment and Plan Start: 10/08/23 19:49 Freq: Status: Active Protocol: Document 12/31/23 09:51 LRN (Rec: 12/31/23 10:33 LRN [id number]) Physical Therapy Assessment Rehab Potential Rehabilitation Potential Good Evaluation Complexity Number of Personal Factors/Comorbidities 1-2 Number of Body Systems Impaired 4 or More Clinical Presentation at Evaluation Evolving Impairments Impairments Activity Tolerance,Functional Mobility,Pain,Posture,ROM, Sensation,Soft Tissue Mobility ,Strength Goals Four Impairment Diastasis Rectus (DR) Impairment Umbilicus 2 above: Closed Umbilicus 1 above: 1.5 finger widths, shallow Umbilicus Umbilicus: 1 below: 1.5 finger widths, shallow Umbilicus: 2 below: 0.5 finger widths, shallow Umbilicus: 3 below: Closed. Short Term Goal (STG) Pt educated in self care to reduce DR (towel support for transfers). 11/08/23: Pt educated in use of towel for transfers to protect DR. STG Duration 2 wks-10/19/23 (11/08/23: MET GOAL) Prison Goal (LTG) Decrease signs of DR. 12/06/23: Decrease in DR opening. 12/17/23: DR almost closed. Open only 1 above umbilicus: 0.5 fingerwidth. LTG Duration 8 more wks-02/04/24 (: MET GOAL) Three Impairment PF pain limiting ability to return to prior level of function of exercise. Impairment Pelvic Floor pain with walking and crossing legs. Short Term Goal (STG) Eliminate pelvic pain with crossing legs and walking. 12/06/23: Walking-No pain. 12/17/23: Must assist R leg to cross, then has pain in groin that is dull achy. 12/31/23: R inner thigh pain when crossing legs. STG Duration 4 more wks-12/31/23 progressing 12/31/23 (pain only with crossing legs ) Prison Goal (LTG) Start light exercise (walking w/o urinary leakage). Start back to exercise walking on level w/o PF pain. 12/06/23: Walking and no urinary leakage w/o PF pain on flat areas. Going uphill sometimes and on slant has PF pain, might have leakage, but might be sweat. 12/17/23: Doesn't think she leaks with walking, only sweats. LTG Duration 8 more wks-02/04/24 12/17/23: Goal partially met (need walking w/o PF pn) Two Impairment Urinary incontinence Impairment Urinary leakage with light and vigorous activity (brisk walking or on uneven ground). Short Term Goal (STG) Pt will be educated in urinary delay techinque. 11/08/23: Pt educated in urinary delay technique STG Duration 4 wks-11/05/23 (11/08/23: MET GOAL) Wind Operations Supervisor Goal (LTG) Improve control over urinary incontinence with elimination of urinary leakage with walking. 12/06/23: Possible urinary leakage with walking fast and sometimes on inclines or slant on road. LTG Duration 8 more wks-02/04/24 (: MET GOAL for level ground ) One Impairment Pt lacks an independent self care HEP. Short Term Goal (STG) Pt educated in proper transfers to lessen core abdominal pressure. 11/01/12: Pt educated in log roll transfer for DR protection, with exhale on TA tightening. STG Duration 3 wks-10/29/23 (11/01/23: MET GOAL) Prison Goal (LTG) Pt will be independent in a self care HEP for PF strengthening. 10/14/23: HEP: PF/hip stretch: Piriformis stretch ( Knee to opp shdr), Wag the Tail, Happy Baby pose. 11/18/23: HEP: hip stretch ( R hip AD, ER, flexors) LTG Duration 8 more wks-02/04/24 progressed 11/18/23 Assessment Summary Assessment Pt initially demonstrated a mild diastasis rectus (DR), core instability and possible pubic symphysis dysfunction with PF pain and tightness. Initial PUF score indicated possible Interstitial cystitis , but scoring may have been influenced greatly by a UTI and her post- condition. Currently, she presents with symptoms of pubic symphysis dysfunction and has not had PF pain with walking until this past week when she was traveling and carring her 6 month old son. Her urinary leakage with walking appears to have resolved and her DR is mostly closed. The pt is having R hip adductor pain when crossing her legs; therefore it is recommended that the pt continue with skilled physical therapy to continue working to achieve the goals stated above. Physical Therapy Plan Frequency and Duration Frequency of Treatment 1x/Week Duration of treatment (weeks) 8 Plan of Care Start Date 12/06/23 Plan of Care End Date 02/04/24 Therapeutic Interventions Therapeutic Interventions Home Exercise Program,Joint Mobilizations,Manual Therapy, Neuromuscular Re-education, Self-Care/Home Management,Soft Tissue Mobilization,Taping, Therapeutic Activities, Therapeutic Exercises Modalities Cold Pack/Ice Massage,Electric Stimulation,Hot Packs Next Visit Focus/Plan Next Note Type Treatment Note Next Visit Plan NEXT: Assess PUF. Assess for PF tightness/pain. Add PF stretches and pt to get relaxation with daily activities (proper squatting and lifting, sit to stand, and moving in bed). Sacral balance, before sacral balancing assess prone positioning affect on Improve abdominal soft tissue (uterus/bladder/urachus) mobility, . Ex & HEP: PF stretching & trunk stretches (R rot & R SB) . ?Bladder diary review for hydration levels & voiding frequency and duration. Ex: Kegel (without use of substitute muscles) with focus on PF relaxation, core/hip ( focus AD) strengthening, POC: IC rehab, Pubic Symphasis Dysfunction Rehab, PF stretching.
--- NOTE | 2024-01-07 15:49 | PT.OTN ---
Current Diagnoses Muscle weakness (generalized) (01/07/24) Stress incontinence (female) (male) (01/07/24) Other female genital prolapse (01/07/24) Pelvic and perineal pain (01/07/24) Physical Therapy Treatment Note PT-OP-A Visit Information Start: 10/08/23 19:49 Freq: Status: Active Protocol: Document 01/07/24 09:51 LRN (Rec: 01/07/24 10:34 LRN [id number]) Out-Patient Physical Therapy Visit Information Visit Information Visit Type Progress Note Visit Note 5 after PN Visit Start Time 09:51 Visit Stop Time 10:31 Visit Number 10/10 total, 04/09 Evaluation Information Evaluation Date 10/11/23 Precautions Precautions Parathyroid excised 10/15/22, current UTI. PT-OP-B Current Condition Start: 10/08/23 19:49 Freq: Status: Active Protocol: Document 10/11/23 11:27 LRN (Rec: 10/11/23 12:22 LRN [id number]) Current Condition History of Current Condition Onset Date 07/01/23 delivery of son (~10 wks post ) Current Complaints Pelvic pain daily. History of Current Condition First week after having baby had to go to hospital a lot, so had very little rest. Now having pain in the pelvic floor pain. Some days pain is all day and some days only with certain movements. If walking on uneven ground then can feel the pain. When walking briskly there is pain after a few minutes or sometimes right away. Pain SLS. Delayed pain onset with prolonged standing, either later in the day or the next day. At night if moving in bed (rolling to side) feels pain. No significant history of pain with first . Prior Treatments and Tests Currently has UTI and is using an [id number] medication, and adding melaleuca oil. Developmental History Developmental History 07/01/23-vaginal of son, 9#, 4 oz, minor tearing not requiring stitches. 2010-vaginal of son, 8#, 6oz. Big tear with delivery Treatment Goals Patient/Caregiver Goals Pt goals: Eliminate pelvic pain with crossing legs, walking. Start light exercise (walking w/o urinary leakage). Start back to exercise ( walking) Personal Factors Other Personal Factors That May Effect Frequent UTI's. Therapy/Recovery PT-OP-C Subjective Start: 10/08/23 19:49 Freq: Status: Active Protocol: Document 01/07/24 09:51 LRN (Rec: 01/07/24 10:34 LRN [id number]) OP-PT Subjective Patient Comments Patient Comments Hasn't walked in last 2 weeks because busy with things. PT-OP-I Pelvic Floor Start: 10/08/23 19:49 Freq: Status: Active Protocol: Document 10/11/23 11:27 LRN (Rec: 10/11/23 12:22 LRN [id number]) Pelvic Floor Assessment Urine Urinary Symptoms Pain Other Urinary Symptoms Frequent urinary infections, 8x in the last year (currently with UTI) Leakage Size Large Leakage Cause Exercise Other Leakage Causes Urinary leakage with exercise, not on a daily basis. Voiding Frequency 10 Nocturia 2-3x Bowel Bowel Surgery No: Pt denies constipation Bowel Symptoms Pain Pelvic Clock Pelvic Clock 12-3 Tenderness Pelvic Clock 3-6 Tenderness Pelvic Clock 6-9 Tenderness Pelvic Clock 9-12 Tenderness Prolapse Cystocele Grade 1 Perineal Descent Resting Absent Contraction Ability Voluntary Contraction Moderate Voluntary Relaxation Moderate Manual Muscle Testing Left 3 Manual Muscle Testing Right 2 Manual Muscle Testing Anterior 3 Manual Muscle Testing Posterior 2 Muscle Endurance (Seconds) 4 Number of Quick Contractions In 10 9 Seconds Comments Pelvic Floor Comments Notable redness of Labia minora and vaginal. PT-OP-J Posture/Palpation/Skin Start: 10/08/23 19:49 Freq: Status: Active Protocol: Document 12/17/23 13:07 LRN (Rec: 12/17/23 13:56 LRN [id number]) Palpation Assessment Location Abdomen Palpation Location Abdomen DR Palpation Details Umbilicus 2 above: Closed Umbilicus 1 above: 0.5 finger widths, very, very shallow Umbilicus Umbilicus: 1 below: Closed Umbilicus: 2 below: Closed Umbilicus: 3 below: Closed. PT-OP-K Range of Motion Start: 10/08/23 19:49 Freq: Status: Active Protocol: Document 11/18/23 13:00 LRN (Rec: 11/18/23 13:50 LRN [id number]) Hip Goniometric Range of Motion Hip Right Passive Testing Position Supine Abduction 30 Left Passive Testing Position Supine Abduction 30 PT-OP-M Strength Start: 10/08/23 19:49 Freq: Status: Active Protocol: Document 10/11/23 11:27 LRN (Rec: 10/11/23 12:22 LRN [id number]) Trunk Strength Trunk Manual Muscle Testing Core Stabilization Lacks core stability with hip ext and AB/AD Hip Strength Hip Manual Muscle Testing Right Adduction 2+ Poor+ External Rotation 3 Fair Comments Lower anterior pelvic pain with MMT. Left Extension (S1) 4+ Good+ External Rotation 3 Fair Comments Lower anterior pelvic pain with MMT. PT-OP-Q Treatments Start: 10/08/23 19:49 Freq: Status: Active Protocol: Document 01/07/24 09:51 LRN (Rec: 01/07/24 10:34 LRN [id number]) Therapeutic Exercises Supine Exercises BKFO Supine Exercise Name Michael BKFO Side bilateral Reps/Minutes 1x Comments Pt I/S to do when R hip AD pain Ilipsoas stretch Supine Exercise Name Ilipsoas stretch Side right Reps/Minutes 4' Standing Exercises Hip Flexor stretch Standing Exercise Name Hip Flexor stretch Side bilateral Reps/Minutes 6' Manual Therapy Treatment Soft Tissue Mobilization PF Body Location Externally PF stretching Mobilization Type Myofascial Release,Trigger Point Release Body Position Hooklying Comments Not able to treat internally due to pt might possibly have infection with reports of itching. Pt vaginal region is extremely red and angry looking. Most tight with Myofascial stretch to anterior PF and L sideglide. Hip AD's Body Location R hip adductors Mobilization Type Trigger Point Release Body Position Supine Comments Trigger points at hip AD tendons at insertion to pubic ramus. PT-OP-T Assessment and Plan Start: 10/08/23 19:49 Freq: Status: Active Protocol: Document 01/07/24 09:51 LRN (Rec: 01/07/24 10:34 LRN [id number]) Physical Therapy Assessment Rehab Potential Rehabilitation Potential Good Evaluation Complexity Number of Personal Factors/Comorbidities 1-2 Number of Body Systems Impaired 4 or More Clinical Presentation at Evaluation Evolving Impairments Impairments Activity Tolerance,Functional Mobility,Pain,Posture,ROM, Sensation,Soft Tissue Mobility ,Strength Goals Five Impairment Pubic symphysis pain with pressure. Patent Prosecution Paralegal Goal (LTG) Improve pelvic stability to decrease pubic symphysis pain. LTG Duration 7 wks-02/25/24 Three Impairment PF pain limiting ability to return to prior level of function of exercise. Impairment Pelvic Floor pain with walking and crossing legs. Short Term Goal (STG) Eliminate pelvic pain with crossing legs and walking. 12/06/23: Walking-No pain. 12/17/23: Must assist R leg to cross, then has pain in groin that is dull achy. 12/31/23: R inner thigh pain when crossing legs. STG Duration 3 more wks-01/29/24 progressing 12/31/23 (pain only with crossing legs ) Group Home Goal (LTG) Start light exercise (walking w/o urinary leakage). Start back to exercise walking on level w/o PF pain. 12/06/23: Walking and no urinary leakage w/o PF pain on flat areas. Going uphill sometimes and on slant has PF pain, might have leakage, but might be sweat. 12/17/23: Doesn't think she leaks with walking, only sweats. LTG Duration 7 wks-02/25/24 12/17/23: Goal partially met (need walking w/o PF pn) Two Impairment Urinary incontinence Impairment Urinary leakage with light and vigorous activity (brisk walking or on uneven ground). Short Term Goal (STG) Pt will be educated in urinary delay techinque. 11/08/23: Pt educated in urinary delay technique STG Duration 4 wks-11/05/23 (11/08/23: MET GOAL) Group Home Goal (LTG) Improve control over urinary incontinence with elimination of urinary leakage with walking. 12/06/23: Possible urinary leakage with walking fast and sometimes on inclines or slant on road. LTG Duration 7 wks-02/25/24 (12/17/23: MET GOAL for level ground) One Impairment Pt lacks an independent self care HEP. Short Term Goal (STG) Pt educated in proper transfers to lessen core abdominal pressure. 11/01/12: Pt educated in log roll transfer for DR protection, with exhale on TA tightening. STG Duration 3 wks-10/29/23 (11/01/23: MET GOAL) Patent Prosecution Paralegal Goal (LTG) Pt will be independent in a self care HEP for PF strengthening. 10/14/23: HEP: PF/hip stretch: Piriformis stretch ( Knee to opp shdr), Wag the Tail, Happy Baby pose. 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 Currently, she presents has symptoms of pubic symphysis dysfunction with lower abdominal pain and pubic pain at R hip AD attachement site. She denies PF pain with walking until a couple weeks ago when she was traveling and [place] 6 month old [place]. She is having more R anterior hip pain at pubic ramus and in her PF. I was not able to perform a PF assessment for PF tightness due to extreme redness of her vaginal canal region. The pt reports she has had itching in the area and believes she might have a vaginal infection. Pt is being referred back for further PF/vaginal assessment before internal soft tissue mobilization is performed. The recovery process has been slow since the start of the new year due to pt travelling, increase in pain, and onset of vaginal infections that the pt has been self treating for . The pt would benefit from further physical therapy, with addition of a goal to treat her for symphysis pubic syfunction. PUF score is 12, previously was 16 (initially was 22). The pt is slowly improving with physical therapy; therefore it is recommended that the pt continue, but she needs further assessment and treatment for a possible vaginal infection. Physical Therapy Plan Frequency and Duration Frequency of Treatment 1x/Week Duration of treatment (weeks) 7 Plan of Care Start Date 01/07/24 Plan of Care End Date 02/25/24 Therapeutic Interventions Therapeutic Interventions Home Exercise Program,Joint Mobilizations,Manual Therapy, Neuromuscular Re-education, Self-Care/Home Management,Soft Tissue Mobilization,Taping, Therapeutic Activities, Therapeutic Exercises Modalities Cold Pack/Ice Massage,Electric Stimulation,Hot Packs Other Referrals/Consults Referrals/Consults Recommended Assessment for possible vaginal infection or skin irritation. Next Visit Focus/Plan Next Note Type Treatment Note Next Visit Plan NEXT: Assess for PF tightness /pain when cleared from infection. Add PF stretches and pt to get relaxation with daily activities (proper squatting and lifting, sit to stand, and moving in bed). Sacral balance when able to prone position w/o compromise to vicente ducts. Improve abdominal soft tissue (uterus/bladder/urachus) mobility. Ex & HEP: PF stretching & trunk stretches (R rot & R SB) . ?Bladder diary review for hydration levels & voiding frequency and duration. Ex: Kegel (without use of substitute muscles) with focus on PF relaxation, core/hip ( focus AD) strengthening, POC: ?IC rehab, PF tightness rehab, Pubic Symphasis Dysfunction Rehab.
--- NOTE | 2024-01-10 17:07 | PT.OTN ---
Current Diagnoses Muscle weakness (generalized) (01/10/24) Stress incontinence (female) (male) (01/10/24) Other female genital prolapse (01/10/24) Pelvic and perineal pain (01/10/24) Physical Therapy Treatment Note PT-OP-A Visit Information Start: 10/08/23 19:49 Freq: Status: Active Protocol: Document 01/10/24 09:01 LRN (Rec: 01/10/24 09:48 LRN [id number]) Out-Patient Physical Therapy Visit Information Visit Information Visit Type Treatment Note Visit Note 6 after PN Visit Start Time 09:01 Visit Stop Time 09:41 Visit Number 11/09 total, 05/10 Evaluation Information Evaluation Date 10/11/23 Precautions Precautions Parathyroid excised 10/15/22, current UTI. PT-OP-B Current Condition Start: 10/08/23 19:49 Freq: Status: Active Protocol: Document 10/11/23 11:27 LRN (Rec: 10/11/23 12:22 LRN [id number]) Current Condition History of Current Condition Onset Date 07/01/23 delivery of son (~10 wks post ) Current Complaints Pelvic pain daily. History of Current Condition First week after having baby had to go to hospital a lot, so had very little rest. Now having pain in the pelvic floor pain. Some days pain is all day and some days only with certain movements. If walking on uneven ground then can feel the pain. When walking briskly there is pain after a few minutes or sometimes right away. Pain SLS. Delayed pain onset with prolonged standing, either later in the day or the next day. At night if moving in bed (rolling to side) feels pain. No significant history of pain with first . Prior Treatments and Tests Currently has UTI and is using an [id number] medication, and adding melaleuca oil. Developmental History Developmental History 07/01/23-vaginal of son, 9#, 4 oz, minor tearing not requiring stitches. 2010-vaginal of son, 8#, 6oz. Big tear with delivery Treatment Goals Patient/Caregiver Goals Pt goals: Eliminate pelvic pain with crossing legs, walking. Start light exercise (walking w/o urinary leakage). Start back to exercise ( walking) Personal Factors Other Personal Factors That May Effect Frequent UTI's. Therapy/Recovery PT-OP-C Subjective Start: 10/08/23 19:49 Freq: Status: Active Protocol: Document 01/10/24 09:01 LRN (Rec: 01/10/24 09:48 LRN [id number]) OP-PT Subjective Patient Comments Patient Comments Taking antibiotics for small amount of bacteria in the urine. Patient Questionnaires Pelvic Pain and Urgency/Frequency Patient Symptom Scale Pelvic Pain Score 12 PT-OP-I Pelvic Floor Start: 10/08/23 19:49 Freq: Status: Active Protocol: Document 10/11/23 11:27 LRN (Rec: 10/11/23 12:22 LRN [id number]) Pelvic Floor Assessment Urine Urinary Symptoms Pain Other Urinary Symptoms Frequent urinary infections, 8x in the last year (currently with UTI) Leakage Size Large Leakage Cause Exercise Other Leakage Causes Urinary leakage with exercise, not on a daily basis. Voiding Frequency 10 Nocturia 2-3x Bowel Bowel Surgery No: Pt denies constipation Bowel Symptoms Pain Pelvic Clock Pelvic Clock 12-3 Tenderness Pelvic Clock 3-6 Tenderness Pelvic Clock 6-9 Tenderness Pelvic Clock 9-12 Tenderness Prolapse Cystocele Grade 1 Perineal Descent Resting Absent Contraction Ability Voluntary Contraction Moderate Voluntary Relaxation Moderate Manual Muscle Testing Left 3 Manual Muscle Testing Right 2 Manual Muscle Testing Anterior 3 Manual Muscle Testing Posterior 2 Muscle Endurance (Seconds) 4 Number of Quick Contractions In 10 9 Seconds Comments Pelvic Floor Comments Notable redness of Labia minora and vaginal. PT-OP-J Posture/Palpation/Skin Start: 10/08/23 19:49 Freq: Status: Active Protocol: Document 12/17/23 13:07 LRN (Rec: 12/17/23 13:56 LRN [id number]) Palpation Assessment Location Abdomen Palpation Location Abdomen DR Palpation Details Umbilicus 2 above: Closed Umbilicus 1 above: 0.5 finger widths, very, very shallow Umbilicus Umbilicus: 1 below: Closed Umbilicus: 2 below: Closed Umbilicus: 3 below: Closed. PT-OP-K Range of Motion Start: 10/08/23 19:49 Freq: Status: Active Protocol: Document 11/18/23 13:00 LRN (Rec: 11/18/23 13:50 LRN [id number]) Hip Goniometric Range of Motion Hip Right Passive Testing Position Supine Abduction 30 Left Passive Testing Position Supine Abduction 30 PT-OP-M Strength Start: 10/08/23 19:49 Freq: Status: Active Protocol: Document 10/11/23 11:27 LRN (Rec: 10/11/23 12:22 LRN [id number]) Trunk Strength Trunk Manual Muscle Testing Core Stabilization Lacks core stability with hip ext and AB/AD Hip Strength Hip Manual Muscle Testing Right Adduction 2+ Poor+ External Rotation 3 Fair Comments Lower anterior pelvic pain with MMT. Left Extension (S1) 4+ Good+ External Rotation 3 Fair Comments Lower anterior pelvic pain with MMT. PT-OP-Q Treatments Start: 10/08/23 19:49 Freq: Status: Active Protocol: Document 01/10/24 09:01 LRN (Rec: 01/10/24 09:48 LRN [id number]) Therapeutic Exercises Supine Exercises BKFO Supine Exercise Name BKFO stretch Side right Reps/Minutes 4' R Piriformis stretch Supine Exercise Name R Piriformis stretch Side right Reps/Minutes 4' Other Exercises 4 pt Other Exercise Name TA tightening & Cat/cow Reps/Minutes 5' Comments Cuing for NS with TA tightening, and cat/cow for mob mainly of T12-L1 Manual Therapy Treatment Soft Tissue Mobilization Hip Body Location Obturator Internus bilaterally Mobilization Type Trigger Point Release Intensity/Depth Moderate Body Position Hooklying Spine Body Location T6-L2 Mobilization Type Strumming Body Position Sidelying Hip AD's Body Location R hip adductors, ,manual distraction. Mobilization Type Trigger Point Release Body Position Hooklying Comments Trigger points at hip AD tendons at insertion to pubic ramus. Joint Mobilizations Spine Joint T6-L4 Direction PA in L sidelie Grade III Body Position Sidelying Reps/Duration 12' PT-OP-T Assessment and Plan Start: 10/08/23 19:49 Freq: Status: Active Protocol: Document 01/10/24 09:01 LRN (Rec: 01/10/24 09:48 LRN [id number]) Physical Therapy Assessment Rehab Potential Rehabilitation Potential Good Evaluation Complexity Number of Personal Factors/Comorbidities 1-2 Number of Body Systems Impaired 4 or More Clinical Presentation at Evaluation Evolving Impairments Impairments Activity Tolerance,Functional Mobility,Pain,Posture,ROM, Sensation,Soft Tissue Mobility ,Strength Goals Five Impairment Pubic symphysis pain with pressure. Computational Chemist Goal (LTG) Improve pelvic stability to decrease pubic symphysis discomfort/sensitivity. LTG Duration 6 wks-02/18/24 Three Impairment PF pain limiting ability to return to prior level of function of exercise. Impairment Pelvic Floor pain with walking and crossing legs. Short Term Goal (STG) Eliminate pelvic pain with crossing legs and walking. 12/06/23: Walking-No pain. 12/17/23: Must assist R leg to cross, then has pain in groin that is dull achy. 12/31/23: R inner thigh pain when crossing legs. STG Duration 3 more wks-01/29/24 progressing 12/31/23 (pain only with crossing legs ) Computational Chemist Goal (LTG) Start light exercise (walking w/o urinary leakage). Start back to exercise walking on level w/o PF pain. 12/06/23: Walking and no urinary leakage w/o PF pain on flat areas. Going uphill sometimes and on slant has PF pain, might have leakage, but might be sweat. 12/17/23: Doesn't think she leaks with walking, only sweats. LTG Duration 6 wks-02/18/24 12/17/23: Goal partially met (need walking w/o PF pn) Two Impairment Urinary incontinence Impairment Urinary leakage with light and vigorous activity (brisk walking or on uneven ground). Short Term Goal (STG) Pt will be educated in urinary delay techinque. 11/08/23: Pt educated in urinary delay technique STG Duration (11/08/23: MET GOAL) Fpc Goal (LTG) Improve control over urinary incontinence with elimination of urinary leakage with walking. 12/06/23: Possible urinary leakage with walking fast and sometimes on inclines or slant on road. LTG Duration 6 wks-02/18/24 (: MET GOAL for level ground ) One Impairment Pt lacks an independent self care HEP. Short Term Goal (STG) Pt educated in proper transfers to lessen core abdominal pressure. 11/01/12: Pt educated in log roll transfer for DR protection, with exhale on TA tightening. STG Duration (11/01/23: MET GOAL) Computational Chemist Goal (LTG) Pt will be independent in a self care HEP for PF strengthening. 10/14/23: HEP: PF/hip stretch: Piriformis stretch ( Knee to opp shdr), Wag the Tail, Happy Baby pose. 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 Pt had no pain at pubic syphysis, but sensitivity. She shows functional improvement per PUF score of 12 (was 16 and initially was 22). Progress has been slow due to frequent UTI's and most recently she was told she had mild bacteria in her urine. She demonstrates exterme redness at the entry of her vaginal canal that would benefit from further medical assessment; therefore the pt plans to seek further recommendatioins and possible assessments. Further manual treatment of her PF will be delayed until she is cleared medically for internal work. The pt meanwhile will benefit from core stabilization and manual therapy to normalize pelvic positioining and reduce her back and R hip pain. I recommend continuation of therapy to progress towards achieving the above stated goals, including a new goal for pubic symphysis discomfort reduction. Physical Therapy Plan Frequency and Duration Frequency of Treatment 1x/Week Duration of treatment (weeks) 6 Plan of Care Start Date 01/07/24 Plan of Care End Date 02/18/24 Therapeutic Interventions Therapeutic Interventions Home Exercise Program,Joint Mobilizations,Manual Therapy, Neuromuscular Re-education, Self-Care/Home Management,Soft Tissue Mobilization,Taping, Therapeutic Activities, Therapeutic Exercises Modalities Cold Pack/Ice Massage,Electric Stimulation,Hot Packs Next Visit Focus/Plan Next Note Type Treatment Note Next Visit Plan NEXT: Assess for PF tightness /pain when cleared from infection. Add PF stretches and pt to get relaxation with daily activities (proper squatting and lifting, sit to stand, and moving in bed). Sacral balance when able to prone position w/o compromise to vicente ducts. Improve abdominal soft tissue (uterus/bladder/urachus) mobility. Ex & HEP: PF stretching & trunk stretches (R rot & R SB) . ?Bladder diary review for hydration levels & voiding frequency and duration. Ex: Kegel (without use of substitute muscles) with focus on PF relaxation, core/hip ( focus AD) strengthening, POC: ?IC rehab, PF tightness rehab, Pubic Symphasis Dysfunction Rehab.
--- NOTE | 2024-01-10 17:07 | PT.OPPOC ---
Physical, Occupational & Speech Therapy At [facility] Current Diagnoses Muscle weakness (generalized) (01/10/24) Stress incontinence (female) (male) (01/10/24) Other female genital prolapse (01/10/24) Pelvic and perineal pain (01/10/24) Visit Care Team Role Provider Type Maribel Peterson MD Family Provider Physician Primary Care Provider Specialty: Family Practice Address: [address] [place] [address], [place], [address] Email: [email or web address] Rehana Valles PA-C Attending Provider Advanced Pre Press Proofer Referring Provider Specialty: Medical Address: [address] [place] [address], [address], [place], [address] Email: [email or web address] Plan Of Care PT-OP-T Assessment and Plan Start: 10/08/23 19:49 Freq: Status: Active Protocol: Document 01/10/24 09:01 LRN (Rec: 01/10/24 09:48 LRN [id number]) Physical Therapy Assessment Rehab Potential Rehabilitation Potential Good Evaluation Complexity Number of Personal Factors/Comorbidities 1-2 Number of Body Systems Impaired 4 or More Clinical Presentation at Evaluation Evolving Impairments Impairments Activity Tolerance,Functional Mobility,Pain,Posture,ROM, Sensation,Soft Tissue Mobility ,Strength Goals Five Impairment Pubic symphysis pain with pressure. Stitch Bonding Machine Tender Goal (LTG) Improve pelvic stability to decrease pubic symphysis discomfort/sensitivity. LTG Duration 6 wks-02/18/24 Three Impairment PF pain limiting ability to return to prior level of function of exercise. Impairment Pelvic Floor pain with walking and crossing legs. Short Term Goal (STG) Eliminate pelvic pain with crossing legs and walking. 12/06/23: Walking-No pain. 12/17/23: Must assist R leg to cross, then has pain in groin that is dull achy. 12/31/23: R inner thigh pain when crossing legs. STG Duration 3 more wks-01/29/24 progressing 12/31/23 (pain only with crossing legs ) Detention Goal (LTG) Start light exercise (walking w/o urinary leakage). Start back to exercise walking on level w/o PF pain. 12/06/23: Walking and no urinary leakage w/o PF pain on flat areas. Going uphill sometimes and on slant has PF pain, might have leakage, but might be sweat. 12/17/23: Doesn't think she leaks with walking, only sweats. LTG Duration 6 wks-02/18/24 12/17/23: Goal partially met (need walking w/o PF pn) Two Impairment Urinary incontinence Impairment Urinary leakage with light and vigorous activity (brisk walking or on uneven ground). Short Term Goal (STG) Pt will be educated in urinary delay techinque. 11/08/23: Pt educated in urinary delay technique STG Duration (11/08/23: MET GOAL) Detention Goal (LTG) Improve control over urinary incontinence with elimination of urinary leakage with walking. 12/06/23: Possible urinary leakage with walking fast and sometimes on inclines or slant on road. LTG Duration 6 wks-02/18/24 (: MET GOAL for level ground ) One Impairment Pt lacks an independent self care HEP. Short Term Goal (STG) Pt educated in proper transfers to lessen core abdominal pressure. 11/01/12: Pt educated in log roll transfer for DR protection, with exhale on TA tightening. STG Duration (11/01/23: MET GOAL) Stitch Bonding Machine Tender Goal (LTG) Pt will be independent in a self care HEP for PF strengthening. 10/14/23: HEP: PF/hip stretch: Piriformis stretch ( Knee to opp shdr), Wag the Tail, Happy Baby pose. 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 Pt had no pain at pubic syphysis, but sensitivity. She shows functional improvement per PUF score of 12 (was 16 and initially was 22). Progress has been slow due to frequent UTI's and most recently she was told she had mild bacteria in her urine. She demonstrates exterme redness at the entry of her vaginal canal that would benefit from further medical assessment; therefore the pt plans to seek further recommendatioins and possible assessments. Further manual treatment of her PF will be delayed until she is cleared medically for internal work. The pt meanwhile will benefit from core stabilization and manual therapy to normalize pelvic positioining and reduce her back and R hip pain. I recommend continuation of therapy to progress towards achieving the above stated goals, including a new goal for pubic symphysis discomfort reduction. Physical Therapy Plan Frequency and Duration Frequency of Treatment 1x/Week Duration of treatment (weeks) 6 Plan of Care Start Date 01/07/24 Plan of Care End Date 02/18/24 Therapeutic Interventions Therapeutic Interventions Home Exercise Program,Joint Mobilizations,Manual Therapy, Neuromuscular Re-education, Self-Care/Home Management,Soft Tissue Mobilization,Taping, Therapeutic Activities, Therapeutic Exercises Modalities Cold Pack/Ice Massage,Electric Stimulation,Hot Packs Next Visit Focus/Plan Next Note Type Treatment Note Next Visit Plan NEXT: Assess for PF tightness /pain when cleared from infection. Add PF stretches and pt to get relaxation with daily activities (proper squatting and lifting, sit to stand, and moving in bed). Sacral balance when able to prone position w/o compromise to vicente ducts. Improve abdominal soft tissue (uterus/bladder/urachus) mobility. Ex & HEP: PF stretching & trunk stretches (R rot & R SB) . ?Bladder diary review for hydration levels & voiding frequency and duration. Ex: Kegel (without use of substitute muscles) with focus on PF relaxation, core/hip ( focus AD) strengthening, POC: ?IC rehab, PF tightness rehab, Pubic Symphasis Dysfunction Rehab. Plan of Care Dates Plan of Care Start Date 01/07/24 Plan of Care End Date 02/18/24 Electronically Signed by: Marybeth Lester, PT 01/10/24 9033 If you are in agreement with this Plan of Care, please return a signed and dated copy. I have reviewed this Plan of Care and certify that the skilled therapy services above are required to meet the patient?s needs. Physician Signature Date Printed Name and Credentials Clinical Instructor Signature Printed Name and Credentials
--- NOTE | 2024-01-13 15:47 | PT-OP ANOTE ---
1435: Per phone conversation with Xiao Valles's nurse, informed pt's current condition of redness of vaginal canal and her c/o's itching and of her receiving antiobiotics for a little bacteria in urine. Requested pt be seen for the redness of her vaginal canal before internal PF work performed. Amy stated she will call patient to let her know she needs to be seen by Dr. Valles.
--- NOTE | 2024-01-20 15:38 | PT.OTN ---
Current Diagnoses Muscle weakness (generalized) (01/20/24) Stress incontinence (female) (male) (01/20/24) Other female genital prolapse (01/20/24) Pelvic and perineal pain (01/20/24) Physical Therapy Treatment Note PT-OP-A Visit Information Start: 10/08/23 19:49 Freq: Status: Active Protocol: Document 01/20/24 09:02 LRN (Rec: 01/20/24 09:49 LRN [id number]) Out-Patient Physical Therapy Visit Information Visit Information Visit Type Treatment Note Visit Note 7 after PN Visit Start Time 09:02 Visit Stop Time 09:44 Visit Number 06/09 PT-OP-B Current Condition Start: 10/08/23 19:49 Freq: Status: Active Protocol: Document 10/11/23 11:27 LRN (Rec: 10/11/23 12:22 LRN [id number]) Current Condition History of Current Condition Onset Date 07/01/23 delivery of son (~10 wks post ) Current Complaints Pelvic pain daily. History of Current Condition First week after having baby had to go to hospital a lot, so had very little rest. Now having pain in the pelvic floor pain. Some days pain is all day and some days only with certain movements. If walking on uneven ground then can feel the pain. When walking briskly there is pain after a few minutes or sometimes right away. Pain SLS. Delayed pain onset with prolonged standing, either later in the day or the next day. At night if moving in bed (rolling to side) feels pain. No significant history of pain with first . Prior Treatments and Tests Currently has UTI and is using an [id number] medication, and adding melaleuca oil. Developmental History Developmental History 07/01/23-vaginal of son, 9#, 4 oz, minor tearing not requiring stitches. 2010-vaginal of son, 8#, 6oz. Big tear with delivery Treatment Goals Patient/Caregiver Goals Pt goals: Eliminate pelvic pain with crossing legs, walking. Start light exercise (walking w/o urinary leakage). Start back to exercise ( walking) Personal Factors Other Personal Factors That May Effect Frequent UTI's. Therapy/Recovery PT-OP-C Subjective Start: 10/08/23 19:49 Freq: Status: Active Protocol: Document 02/22/24 09:02 LRN (Rec: 01/20/24 09:49 LRN [id number]) OP-PT Subjective Patient Comments Patient Comments Saw a MD at Xiao Valles's. [place] office (Dr. Peterson is her primary). Was given 2 meds for yeast infection, has been 4 days since the final med. No follow up visit scheduled. Traveled again and had to run to get his phone that fell on a ground. Pain in lower abdomen 1 of 5 [place], (had walked 10,000 steps), next day woke w /o pain. Pain only one day. PT-OP-I Pelvic Floor Start: 10/08/23 19:49 Freq: Status: Active Protocol: Document 10/11/23 11:27 LRN (Rec: 10/11/23 12:22 LRN [id number]) Pelvic Floor Assessment Urine Urinary Symptoms Pain Other Urinary Symptoms Frequent urinary infections, 8x in the last year (currently with UTI) Leakage Size Large Leakage Cause Exercise Other Leakage Causes Urinary leakage with exercise, not on a daily basis. Voiding Frequency 10 Nocturia 2-3x Bowel Bowel Surgery No: Pt denies constipation Bowel Symptoms Pain Pelvic Clock Pelvic Clock 12-3 Tenderness Pelvic Clock 3-6 Tenderness Pelvic Clock 6-9 Tenderness Pelvic Clock 9-12 Tenderness Prolapse Cystocele Grade 1 Perineal Descent Resting Absent Contraction Ability Voluntary Contraction Moderate Voluntary Relaxation Moderate Manual Muscle Testing Left 3 Manual Muscle Testing Right 2 Manual Muscle Testing Anterior 3 Manual Muscle Testing Posterior 2 Muscle Endurance (Seconds) 4 Number of Quick Contractions In 10 9 Seconds Comments Pelvic Floor Comments Notable redness of Labia minora and vaginal. PT-OP-J Posture/Palpation/Skin Start: 10/08/23 19:49 Freq: Status: Active Protocol: Document 12/17/23 13:07 LRN (Rec: 12/17/23 13:56 LRN [id number]) Palpation Assessment Location Abdomen Palpation Location Abdomen DR Palpation Details Umbilicus 2 above: Closed Umbilicus 1 above: 0.5 finger widths, very, very shallow Umbilicus Umbilicus: 1 below: Closed Umbilicus: 2 below: Closed Umbilicus: 3 below: Closed. PT-OP-K Range of Motion Start: 10/08/23 19:49 Freq: Status: Active Protocol: Document 11/18/23 13:00 LRN (Rec: 11/18/23 13:50 LRN [id number]) Hip Goniometric Range of Motion Hip Right Passive Testing Position Supine Abduction 30 Left Passive Testing Position Supine Abduction 30 PT-OP-M Strength Start: 10/08/23 19:49 Freq: Status: Active Protocol: Document 10/11/23 11:27 LRN (Rec: 10/11/23 12:22 LRN [id number]) Trunk Strength Trunk Manual Muscle Testing Core Stabilization Lacks core stability with hip ext and AB/AD Hip Strength Hip Manual Muscle Testing Right Adduction 2+ Poor+ External Rotation 3 Fair Comments Lower anterior pelvic pain with MMT. Left Extension (S1) 4+ Good+ External Rotation 3 Fair Comments Lower anterior pelvic pain with MMT. PT-OP-Q Treatments Start: 10/08/23 19:49 Freq: Status: Active Protocol: Document 01/20/24 09:02 LRN (Rec: 01/20/24 09:49 LRN [id number]) Therapeutic Exercises Supine Exercises BKFO Supine Exercise Name BKFO stretch Side right Equipment Used Pillow under thighs Reps/Minutes 4' R Piriformis stretch Supine Exercise Name R Piriformis stretch Side right Reps/Minutes 4' Ilipsoas stretch Supine Exercise Name Ilipsoas stretch Side right Reps/Minutes 4' Sidelying Exercises Openbook stretch Sidelying Exercise Name Open book stretch (R rot stretch) Side right Reps/Minutes 8' Comments Extra time to determine max augie stretch and positioning TA tightening Sidelying Exercise Name TA tightening Side bilateral Reps/Minutes 7' Comments Cued to not hold breath, and to not engage gluteals. L weaker than R Manual Therapy Treatment Soft Tissue Mobilization Abdomen Body Location Lower abdomen, trunk rotators , Urachus Mobilization Type Strumming,Sustained Pressure Body Position Hooklying Comments Stinging pain at L Urachus. PT-OP-T Assessment and Plan Start: 10/08/23 19:49 Freq: Status: Active Protocol: Document 01/20/24 09:02 LRN (Rec: 01/20/24 09:49 LRN [id number]) Physical Therapy Assessment Goals Five Impairment Pubic symphysis pain with pressure. Half-Way Goal (LTG) Improve pelvic stability to decrease pubic symphysis discomfort/sensitivity. LTG Duration 6 wks-02/18/24 Three Impairment PF pain limiting ability to return to prior level of function of exercise. Impairment Pelvic Floor pain with walking and crossing legs. Short Term Goal (STG) Eliminate pelvic pain with crossing legs and walking. 12/06/23: Walking-No pain. 12/17/23: Must assist R leg to cross, then has pain in groin that is dull achy. 12/31/23: R inner thigh pain when crossing legs. STG Duration 3 more wks-01/29/24 progressing 12/31/23 (pain only with crossing legs ) Multimedia Producer Goal (LTG) Start light exercise (walking w/o urinary leakage). Start back to exercise walking on level w/o PF pain. 12/06/23: Walking and no urinary leakage w/o PF pain on flat areas. Going uphill sometimes and on slant has PF pain, might have leakage, but might be sweat. 12/17/23: Doesn't think she leaks with walking, only sweats. LTG Duration 6 wks-02/18/24 12/17/23: Goal partially met (need walking w/o PF pn) Two Impairment Urinary incontinence Impairment Urinary leakage with light and vigorous activity (brisk walking or on uneven ground). Short Term Goal (STG) Pt will be educated in urinary delay techinque. 11/08/23: Pt educated in urinary delay technique STG Duration (11/08/23: MET GOAL) Multimedia Producer Goal (LTG) Improve control over urinary incontinence with elimination of urinary leakage with walking. 12/06/23: Possible urinary leakage with walking fast and sometimes on inclines or slant on road. 01/20/24: No urinary leakage with walking and on inclines. LTG Duration 6 wks-02/18/24 (: MET GOAL) One Impairment Pt lacks an independent self care HEP. Short Term Goal (STG) Pt educated in proper transfers to lessen core abdominal pressure. 11/01/12: Pt educated in log roll transfer for DR protection, with exhale on TA tightening. STG Duration (11/01/23: MET GOAL) Half-Way Goal (LTG) Pt will be independent in a self care HEP for PF strengthening. 10/14/23: HEP: PF/hip stretch: Piriformis stretch ( Knee to opp shdr), Wag the Tail, Happy Baby pose. 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 Today the pt demonstrates weakness of core/TA. Improvement in urinary incontinence with no reports of urinary leakage during trip . Tingling and burning with STM to urachus, possibly tight ? vs stretched. [place] caused increase in lower abdominal pelvic pain for 1 day. Physical Therapy Plan Frequency and Duration Frequency of Treatment 1x/Week Duration of treatment (weeks) 6 Plan of Care Start Date 01/07/24 Plan of Care End Date 02/18/24 Next Visit Focus/Plan Next Note Type Treatment Note Next Visit Plan NEXT: Assess for PF tightness /pain when if pt feels infection cleared. If needed, add wand PF TrP treatment stretches, and teach /review PF relaxation with daily activities (proper squatting and lifting, sit to stand, and moving in bed). Assess need to improve abdominal soft tissue (uterus) mobility, strengthen trunk rotators. Ex & HEP: PF stretching & trunk stretches (R rot & R SB) . Pelvic stab. Kegel ( without use of substitute muscles) with focus on PF relaxation, core/hip (focus AD ) strengthening. ?Bladder diary review for hydration levels & voiding frequency and duration. Sacral balance when able to prone position w/o compromise to vicente ducts. POC: ?IC rehab, PF tightness rehab, Pubic Symphasis Dysfunction Rehab.
--- NOTE | 2024-01-28 15:16 | PT.OTN ---
Current Diagnoses Muscle weakness (generalized) (01/28/24) Stress incontinence (female) (male) (01/28/24) Other female genital prolapse (01/28/24) Pelvic and perineal pain (01/28/24) Physical Therapy Treatment Note PT-OP-A Visit Information Start: 10/08/23 19:49 Freq: Status: Active Protocol: Document 01/28/24 13:01 LRN (Rec: 01/28/24 13:48 LRN [id number]) Out-Patient Physical Therapy Visit Information Visit Information Visit Type Treatment Note Visit Note 8 after PN Visit Start Time 13:01 Visit Stop Time 13:42 Visit Number 07/10 Evaluation Information Evaluation Date 10/11/23 Precautions Precautions Parathyroid excised 10/15/22, current UTI. PT-OP-B Current Condition Start: 10/08/23 19:49 Freq: Status: Active Protocol: Document 10/11/23 11:27 LRN (Rec: 10/11/23 12:22 LRN [id number]) Current Condition History of Current Condition Onset Date 07/01/23 delivery of son (~10 wks post ) Current Complaints Pelvic pain daily. History of Current Condition First week after having baby had to go to hospital a lot, so had very little rest. Now having pain in the pelvic floor pain. Some days pain is all day and some days only with certain movements. If walking on uneven ground then can feel the pain. When walking briskly there is pain after a few minutes or sometimes right away. Pain SLS. Delayed pain onset with prolonged standing, either later in the day or the next day. At night if moving in bed (rolling to side) feels pain. No significant history of pain with first . Prior Treatments and Tests Currently has UTI and is using an [id number] medication, and adding melaleuca oil. Developmental History Developmental History 07/01/23-vaginal of son, 9#, 4 oz, minor tearing not requiring stitches. 2010-vaginal of son, 8#, 6oz. Big tear with delivery Treatment Goals Patient/Caregiver Goals Pt goals: Eliminate pelvic pain with crossing legs, walking. Start light exercise (walking w/o urinary leakage). Start back to exercise ( walking) Personal Factors Other Personal Factors That May Effect Frequent UTI's. Therapy/Recovery PT-OP-C Subjective Start: 10/08/23 19:49 Freq: Status: Active Protocol: Document 01/28/24 13:01 LRN (Rec: 01/28/24 13:48 LRN [id number]) OP-PT Subjective Patient Comments Patient Comments Pain only in lower R leg in inner thigh. Painful to cross R ankle over knee. PT-OP-I Pelvic Floor Start: 10/08/23 19:49 Freq: Status: Active Protocol: Document 10/11/23 11:27 LRN (Rec: 10/11/23 12:22 LRN [id number]) Pelvic Floor Assessment Urine Urinary Symptoms Pain Other Urinary Symptoms Frequent urinary infections, 8x in the last year (currently with UTI) Leakage Size Large Leakage Cause Exercise Other Leakage Causes Urinary leakage with exercise, not on a daily basis. Voiding Frequency 10 Nocturia 2-3x Bowel Bowel Surgery No: Pt denies constipation Bowel Symptoms Pain Pelvic Clock Pelvic Clock 12-3 Tenderness Pelvic Clock 3-6 Tenderness Pelvic Clock 6-9 Tenderness Pelvic Clock 9-12 Tenderness Prolapse Cystocele Grade 1 Perineal Descent Resting Absent Contraction Ability Voluntary Contraction Moderate Voluntary Relaxation Moderate Manual Muscle Testing Left 3 Manual Muscle Testing Right 2 Manual Muscle Testing Anterior 3 Manual Muscle Testing Posterior 2 Muscle Endurance (Seconds) 4 Number of Quick Contractions In 10 9 Seconds Comments Pelvic Floor Comments Notable redness of Labia minora and vaginal. PT-OP-J Posture/Palpation/Skin Start: 10/08/23 19:49 Freq: Status: Active Protocol: Document 12/17/23 13:07 LRN (Rec: 12/17/23 13:56 LRN [id number]) Palpation Assessment Location Abdomen Palpation Location Abdomen DR Palpation Details Umbilicus 2 above: Closed Umbilicus 1 above: 0.5 finger widths, very, very shallow Umbilicus Umbilicus: 1 below: Closed Umbilicus: 2 below: Closed Umbilicus: 3 below: Closed. PT-OP-K Range of Motion Start: 10/08/23 19:49 Freq: Status: Active Protocol: Document 11/18/23 13:00 LRN (Rec: 11/18/23 13:50 LRN [id number]) Hip Goniometric Range of Motion Hip Right Passive Testing Position Supine Abduction 30 Left Passive Testing Position Supine Abduction 30 PT-OP-M Strength Start: 10/08/23 19:49 Freq: Status: Active Protocol: Document 10/11/23 11:27 LRN (Rec: 10/11/23 12:22 LRN [id number]) Trunk Strength Trunk Manual Muscle Testing Core Stabilization Lacks core stability with hip ext and AB/AD Hip Strength Hip Manual Muscle Testing Right Adduction 2+ Poor+ External Rotation 3 Fair Comments Lower anterior pelvic pain with MMT. Left Extension (S1) 4+ Good+ External Rotation 3 Fair Comments Lower anterior pelvic pain with MMT. PT-OP-Q Treatments Start: 10/08/23 19:49 Freq: Status: Active Protocol: Document 01/28/24 13:01 LRN (Rec: 01/28/24 13:48 LRN [id number]) Therapeutic Exercises Supine Exercises Pube Balancing Supine Exercise Name Hip AB w/TB & gentle kelsie ADD Reps/Minutes 10 SH x 10 Sitting Exercises Pube Balancing Sitting Exercise Name Hip AB w/TB & gentle kelsie ADD Reps/Minutes 5 Sh x 10 Standing Exercises Kelsie Trunk Rot Standing Exercise Name Side Step outs, holding TB at chest. Equipment Used L2 Reps/Minutes 3x each Paloff Press Standing Exercise Name Paloff Press Side bilateral Equipment Used L2 Reps/Minutes 5x each Trunk Rot Standing Exercise Name Trunk Rot strengthening Side bilateral Equipment Used Lev 2 TB Reps/Minutes 10x each with extra time taken to modify and perform ex correctly. Comments Cuing to keep pelvis stable and draw ribs inward Manual Therapy Treatment Manual Techniques Sacral balancing Type Sacral balancing Body Position Prone and supine Comments PA of R Sacral Sulcus Shear to R of sacrum PA of R Ischiall Tub Pub alignment. PT-OP-T Assessment and Plan Start: 10/08/23 19:49 Freq: Status: Active Protocol: Document 01/28/24 13:01 LRN (Rec: 01/28/24 13:48 LRN [id number]) Physical Therapy Assessment Goals Five Impairment Pubic symphysis pain with pressure. Jail Goal (LTG) Improve pelvic stability to decrease pubic symphysis discomfort/sensitivity. LTG Duration 6 wks-02/18/24 Three Impairment PF pain limiting ability to return to prior level of function of exercise. Impairment Pelvic Floor pain with walking and crossing legs. Short Term Goal (STG) Eliminate pelvic pain with crossing legs and walking. 12/06/23: Walking-No pain. 12/17/23: Must assist R leg to cross, then has pain in groin that is dull achy. 12/31/23: R inner thigh pain when crossing legs. STG Duration 3 more wks-01/29/24 progressing 12/31/23 (pain only with crossing legs ) Timber Deadener Goal (LTG) Start light exercise (walking w/o urinary leakage). Start back to exercise walking on level w/o PF pain. 12/06/23: Walking and no urinary leakage w/o PF pain on flat areas. Going uphill sometimes and on slant has PF pain, might have leakage, but might be sweat. 12/17/23: Doesn't think she leaks with walking, only sweats. LTG Duration 6 wks-02/18/24 12/17/23: Goal partially met (need walking w/o PF pn) One Impairment Pt lacks an independent self care HEP. Short Term Goal (STG) Pt educated in proper transfers to lessen core abdominal pressure. 11/01/12: Pt educated in log roll transfer for DR protection, with exhale on TA tightening. STG Duration (11/01/23: MET GOAL) Timber Deadener Goal (LTG) Pt will be independent in a self care HEP for PF strengthening. 10/14/23: HEP: PF/hip stretch: Piriformis stretch ( Knee to opp shdr), Wag the Tail, Happy Baby pose. 11/18/23: HEP: hip stretch ( R hip AD, ER, flexors) 01/28/24: HEP: Kelsie and active resisted trunk rot strengthening LTG Duration 6 wks-02/18/24 progressed 01/28/24 Assessment Summary Assessment 33 yo post for ?IC rehab, PF tightness rehab, Pubic Symphasis Dysfunction Rehab. She demonstrates poor core stab. Not able to hold TA tight; therefore LBP with Paloff press. Physical Therapy Plan Frequency and Duration Frequency of Treatment 1x/Week Duration of treatment (weeks) 6 Plan of Care Start Date 01/07/24 Plan of Care End Date 02/18/24 Next Visit Focus/Plan Next Note Type Re-Evaluation Next Visit Plan 2 Visits left, last visit before end of POC date. ? response to sacral balancing? focus on core/pubic stab. strengthen trunk rotators. NEXT: Assess for PF tightness /pain (if infection cleared). If needed, add wand PF TrP treatment stretches, Teach/review PF relaxation with daily activities (proper squatting and lifting, sit to stand, and moving in bed). Ex & HEP: PF stretching & trunk stretches (R rot & R SB) . Pelvic stab. Kegel (without use of substitute muscles) with focus on PF relaxation, core/hip (focus AD) strengthening. POC: ?IC rehab, PF tightness rehab, Pubic Symphasis Dysfunction Rehab.
--- NOTE | 2024-02-04 17:22 | PT.OTN ---
Current Diagnoses Muscle weakness (generalized) (02/04/24) Stress incontinence (female) (male) (02/04/24) Other female genital prolapse (02/04/24) Pelvic and perineal pain (02/04/24) Physical Therapy Treatment Note PT-OP-A Visit Information Start: 10/08/23 19:49 Freq: Status: Active Protocol: Document 02/04/24 08:22 LRN (Rec: 02/04/24 09:07 LRN [id number]) Out-Patient Physical Therapy Visit Information Visit Information Visit Type Progress Note Visit Start Time 08: Visit Stop Time 09:02 Visit Number 08/10 Evaluation Information Evaluation Date 10/11/23 Precautions Precautions Parathyroid excised 10/15/22, current UTI. PT-OP-B Current Condition Start: 10/08/23 19:49 Freq: Status: Active Protocol: Document 10/11/23 11:27 LRN (Rec: 10/11/23 12:22 LRN [id number]) Current Condition History of Current Condition Onset Date 07/01/23 delivery of son (~10 wks post ) Current Complaints Pelvic pain daily. History of Current Condition First week after having baby had to go to hospital a lot, so had very little rest. Now having pain in the pelvic floor pain. Some days pain is all day and some days only with certain movements. If walking on uneven ground then can feel the pain. When walking briskly there is pain after a few minutes or sometimes right away. Pain SLS. Delayed pain onset with prolonged standing, either later in the day or the next day. At night if moving in bed (rolling to side) feels pain. No significant history of pain with first . Prior Treatments and Tests Currently has UTI and is using an [id number] medication, and adding melaleuca oil. Developmental History Developmental History 07/01/23-vaginal of son, 9#, 4 oz, minor tearing not requiring stitches. 2010-vaginal of son, 8#, 6oz. Big tear with delivery Treatment Goals Patient/Caregiver Goals Pt goals: Eliminate pelvic pain with crossing legs, walking. Start light exercise (walking w/o urinary leakage). Start back to exercise ( walking) Personal Factors Other Personal Factors That May Effect Frequent UTI's. Therapy/Recovery PT-OP-C Subjective Start: 10/08/23 19:49 Freq: Status: Active Protocol: Document 02/04/24 08:22 LRN (Rec: 02/04/24 09:07 LRN [id number]) OP-PT Subjective Patient Comments Patient Comments Hurting a lot in inner thigh, so hasn't done much exercise. Has felt pain in the middle with walking. Back is mostly good. PT-OP-I Pelvic Floor Start: 10/08/23 19:49 Freq: Status: Active Protocol: Document 10/11/23 11:27 LRN (Rec: 10/11/23 12:22 LRN [id number]) Pelvic Floor Assessment Urine Urinary Symptoms Pain Other Urinary Symptoms Frequent urinary infections, 8x in the last year (currently with UTI) Leakage Size Large Leakage Cause Exercise Other Leakage Causes Urinary leakage with exercise, not on a daily basis. Voiding Frequency 10 Nocturia 2-3x Bowel Bowel Surgery No: Pt denies constipation Bowel Symptoms Pain Pelvic Clock Pelvic Clock 12-3 Tenderness Pelvic Clock 3-6 Tenderness Pelvic Clock 6-9 Tenderness Pelvic Clock 9-12 Tenderness Prolapse Cystocele Grade 1 Perineal Descent Resting Absent Contraction Ability Voluntary Contraction Moderate Voluntary Relaxation Moderate Manual Muscle Testing Left 3 Manual Muscle Testing Right 2 Manual Muscle Testing Anterior 3 Manual Muscle Testing Posterior 2 Muscle Endurance (Seconds) 4 Number of Quick Contractions In 10 9 Seconds Comments Pelvic Floor Comments Notable redness of Labia minora and vaginal. PT-OP-J Posture/Palpation/Skin Start: 10/08/23 19:49 Freq: Status: Active Protocol: Document 12/17/23 13:07 LRN (Rec: 12/17/23 13:56 LRN [id number]) Palpation Assessment Location Abdomen Palpation Location Abdomen DR Palpation Details Umbilicus 2 above: Closed Umbilicus 1 above: 0.5 finger widths, very, very shallow Umbilicus Umbilicus: 1 below: Closed Umbilicus: 2 below: Closed Umbilicus: 3 below: Closed. PT-OP-K Range of Motion Start: 10/08/23 19:49 Freq: Status: Active Protocol: Document 11/18/23 13:00 LRN (Rec: 11/18/23 13:50 LRN [id number]) Hip Goniometric Range of Motion Hip Right Passive Testing Position Supine Abduction 30 Left Passive Testing Position Supine Abduction 30 PT-OP-M Strength Start: 10/08/23 19:49 Freq: Status: Active Protocol: Document 10/11/23 11:27 LRN (Rec: 10/11/23 12:22 LRN [id number]) Trunk Strength Trunk Manual Muscle Testing Core Stabilization Lacks core stability with hip ext and AB/AD Hip Strength Hip Manual Muscle Testing Right Adduction 2+ Poor+ External Rotation 3 Fair Comments Lower anterior pelvic pain with MMT. Left Extension (S1) 4+ Good+ External Rotation 3 Fair Comments Lower anterior pelvic pain with MMT. PT-OP-Q Treatments Start: 10/08/23 19:49 Freq: Status: Active Protocol: Document 02/04/24 08:22 LRN (Rec: 02/04/24 09:07 LRN [id number]) Therapeutic Exercises Supine Exercises BKFO Supine Exercise Name R SL BKFO Side right Resistance L1 Reps/Minutes 5' Comments Extra time needed to fig out max augie position and resistance. Prone Exercises R hip ER Prone Exercise Name R SL kelsie ER w/manual resistance at R foot. Satish feet press. Side right Reps/Minutes 5' Comments Pt had pain at S2 region and inner R thigh with satish feet press Hip IR Prone Exercise Name Hip IR Side bilateral Equipment Used L1 TB Reps/Minutes 5' Sidelying Exercises R Clamshell Sidelying Exercise Name R Clamshell Reps/Minutes 10' Comments Time needed to determine max augie position., pn at S2 even w /PT stab asst Manual Therapy Treatment Soft Tissue Mobilization Hip Body Location R hip @ L lateral sacral S2 Mobilization Type Strumming Intensity/Depth Moderate Body Position Prone PT-OP-T Assessment and Plan Start: 10/08/23 19:49 Freq: Status: Active Protocol: Document 02/04/24 08:22 LRN (Rec: 02/04/24 09:07 LRN [id number]) Physical Therapy Assessment Goals Five Impairment Pubic symphysis pain with pressure. Jail Goal (LTG) Improve pelvic stability to decrease pubic symphysis discomfort/sensitivity. 02/04/24: Tenderness present rated 3/10 that is sporadic depending on position she is in. With a bad position pain is 5-6/10. LTG Duration 8wks-03/31/24 Three Impairment PF pain limiting ability to return to prior level of function of exercise. Impairment Pelvic Floor pain with walking and crossing legs. Short Term Goal (STG) Eliminate pelvic pain with crossing legs and walking. 12/06/23: Walking-No pain. 12/17/23: Must assist R leg to cross, then has pain in groin that is dull achy. 12/31/23: R inner thigh pain when crossing legs. 02/04/24: Walking the past week more painful than previous weeks. STG Duration 3 wks-02/25/24 progressing 12/31/23 (pain only with crossing legs ) Jail Goal (LTG) Start light exercise (walking w/o urinary leakage). Start back to exercise walking on level w/o PF pain. 12/06/23: Walking and no urinary leakage w/o PF pain on flat areas. Going uphill sometimes and on slant has PF pain, might have leakage, but might be sweat. 12/17/23: Doesn't think she leaks with walking, only sweats. 02/04/24: Pain w/walking mostly on R inner thigh. LTG Duration 8wks-03/31/24 12/17/23: Goal partially met (need walking w/o PF pn) One Impairment Pt lacks an independent self care HEP. Short Term Goal (STG) Pt educated in proper transfers to lessen core abdominal pressure. 11/01/12: Pt educated in log roll transfer for DR protection, with exhale on TA tightening. STG Duration (11/01/23: MET GOAL) Jail Goal (LTG) Pt will be independent in a self care HEP for PF strengthening. 10/14/23: HEP: PF/hip stretch: Piriformis stretch ( Knee to opp shdr), Wag the Tail, Happy Baby pose. 11/18/23: HEP: hip stretch ( R hip AD, ER, flexors) 01/28/24: HEP: Kelsie and active resisted trunk rot strengthening 08 LTG Duration 8wks-03/31/24 progressed Assessment Summary Assessment 33 yo post for ?IC rehab, PF tightness rehab, Pubic Symphysis Dysfunction Rehab. She has had up and down episodes due to other comorbidities and travel; therefore the pt has not been able to achieve resolution of her R lateral thigh pain that I believe is associated to instability at her pubic symphysis. After return for a trip to visit her spouse she is again experiencing occasional sharp pains in the pubic symphysis region and lower abdominal pain for core weakness. She is not able to hold her TA tight: therefore has LBP with trunk rotational exercises. I feel the pt would benefit from further supervision and progression of her HEP and with more time between visits; therefore I would recommend extending her plan of care to extend her 3 remaining visits over 6-8 more weeks with 2-3 wks between visits. Physical Therapy Plan Frequency and Duration Frequency of Treatment 1x/Week Duration of treatment (weeks) 8 Plan of Care Start Date 02/04/24 Plan of Care End Date 03/31/24 Next Visit Focus/Plan Next Note Type Treatment Note Next Visit Plan 3 Visits left. ?response to sacral balancing? focus on core/pubic stab. strengthen trunk rotators. POC: ?IC rehab, PF tightness rehab, Pubic Symphasis Dysfunction Rehab, core strengthening. NEXT: Assess for PF tightness /pain (if infection cleared). If needed, add wand PF TrP treatment stretches, Teach/review PF relaxation with daily activities (proper squatting and lifting, sit to stand, and moving in bed). Ex & HEP: PF stretching & trunk stretches (R rot & R SB) . Pelvic stab. Kegel (without use of substitute muscles) with focus on PF relaxation, core/hip (focus AD) strengthening.
--- NOTE | 2024-02-04 17:22 | PT.OPPOC ---
Physical, Occupational & Speech Therapy At [facility] Current Diagnoses Muscle weakness (generalized) (02/04/24) Stress incontinence (female) (male) (02/04/24) Other female genital prolapse (02/04/24) Pelvic and perineal pain (02/04/24) Visit Care Team Role Provider Type Maribel Peterson MD Family Provider Physician Primary Care Provider Specialty: Family Practice Address: [address] [place] [address], [address], [place], [address] Email: [email or web address] Rehana Valles PA-C Attending Provider Advanced Compressor Station Operator Referring Provider Specialty: Medical Address: [address] [place] [address], [address], [place], [address] Email: [email or web address] Plan Of Care PT-OP-T Assessment and Plan Start: 10/08/23 19:49 Freq: Status: Active Protocol: Document 02/04/24 08:22 LRN (Rec: 02/04/24 09:07 LRN [id number]) Physical Therapy Assessment Goals Five Impairment Pubic symphysis pain with pressure. Loop Machine Operator Goal (LTG) Improve pelvic stability to decrease pubic symphysis discomfort/sensitivity. 02/04/24: Tenderness present rated 3/10 that is sporadic depending on position she is in. With a bad position pain is 5-6/10. LTG Duration 8wks-03/31/24 Three Impairment PF pain limiting ability to return to prior level of function of exercise. Impairment Pelvic Floor pain with walking and crossing legs. Short Term Goal (STG) Eliminate pelvic pain with crossing legs and walking. 12/06/23: Walking-No pain. 12/17/23: Must assist R leg to cross, then has pain in groin that is dull achy. 12/31/23: R inner thigh pain when crossing legs. 02/04/24: Walking the past week more painful than previous weeks. STG Duration 3 wks-02/25/24 progressing 12/31/23 (pain only with crossing legs ) Assisted Goal (LTG) Start light exercise (walking w/o urinary leakage). Start back to exercise walking on level w/o PF pain. 12/06/23: Walking and no urinary leakage w/o PF pain on flat areas. Going uphill sometimes and on slant has PF pain, might have leakage, but might be sweat. 12/17/23: Doesn't think she leaks with walking, only sweats. 02/04/24: Pain w/walking mostly on R inner thigh. LTG Duration 8wks-03/31/24 12/17/23: Goal partially met (need walking w/o PF pn) One Impairment Pt lacks an independent self care HEP. Short Term Goal (STG) Pt educated in proper transfers to lessen core abdominal pressure. 11/01/12: Pt educated in log roll transfer for DR protection, with exhale on TA tightening. STG Duration (11/01/23: MET GOAL) Assisted Goal (LTG) Pt will be independent in a self care HEP for PF strengthening. 10/14/23: HEP: PF/hip stretch: Piriformis stretch ( Knee to opp shdr), Wag the Tail, Happy Baby pose. 11/18/23: HEP: hip stretch ( R hip AD, ER, flexors) 01/28/24: HEP: Kelsie and active resisted trunk rot strengthening 08 LTG Duration 8wks-03/31/24 progressed Assessment Summary Assessment 33 yo post for ?IC rehab, PF tightness rehab, Pubic Symphysis Dysfunction Rehab. She has had up and down episodes due to other comorbidities and travel; therefore the pt has not been able to achieve resolution of her R lateral thigh pain that I believe is associated to instability at her pubic symphysis. After return for a trip to visit her spouse she is again experiencing occasional sharp pains in the pubic symphysis region and lower abdominal pain for core weakness. She is not able to hold her TA tight: therefore has LBP with trunk rotational exercises. I feel the pt would benefit from further supervision and progression of her HEP and with more time between visits; therefore I would recommend extending her plan of care to extend her 3 remaining visits over 6-8 more weeks with 2-3 wks between visits. Physical Therapy Plan Frequency and Duration Frequency of Treatment 1x/Week Duration of treatment (weeks) 8 Plan of Care Start Date 02/04/24 Plan of Care End Date 03/31/24 Next Visit Focus/Plan Next Note Type Treatment Note Next Visit Plan 3 Visits left. ?response to sacral balancing? focus on core/pubic stab. strengthen trunk rotators. POC: ?IC rehab, PF tightness rehab, Pubic Symphasis Dysfunction Rehab, core strengthening. NEXT: Assess for PF tightness /pain (if infection cleared). If needed, add wand PF TrP treatment stretches, Teach/review PF relaxation with daily activities (proper squatting and lifting, sit to stand, and moving in bed). Ex & HEP: PF stretching & trunk stretches (R rot & R SB) . Pelvic stab. Kegel (without use of substitute muscles) with focus on PF relaxation, core/hip (focus AD) strengthening. Plan of Care Dates Plan of Care Start Date 02/04/24 Plan of Care End Date 03/31/24 Electronically Signed by: Marybeth Lester, PT 02/04/24 9050 If you are in agreement with this Plan of Care, please return a signed and dated copy. I have reviewed this Plan of Care and certify that the skilled therapy services above are required to meet the patient?s needs. Physician Signature Date Printed Name and Credentials Clinical Instructor Signature Printed Name and Credentials
--- NOTE | 2024-02-14 13:13 | PT.OTN ---
Current Diagnoses Muscle weakness (generalized) (02/14/24) Stress incontinence (female) (male) (02/14/24) Other female genital prolapse (02/14/24) Pelvic and perineal pain (02/14/24) Physical Therapy Treatment Note PT-OP-A Visit Information Start: 10/08/23 19:49 Freq: Status: Active Protocol: Document 02/14/24 11:19 LRN (Rec: 02/14/24 12:28 LRN [id number]) Out-Patient Physical Therapy Visit Information Visit Information Visit Type Treatment Note Visit Start Time 11:19 Visit Stop Time 12:08 Visit Number 09/09 PT-OP-B Current Condition Start: 10/08/23 19:49 Freq: Status: Active Protocol: Document 10/11/23 11:27 LRN (Rec: 10/11/23 12:22 LRN [id number]) Current Condition History of Current Condition Onset Date 07/01/23 delivery of son (~10 wks post ) Current Complaints Pelvic pain daily. History of Current Condition First week after having baby had to go to hospital a lot, so had very little rest. Now having pain in the pelvic floor pain. Some days pain is all day and some days only with certain movements. If walking on uneven ground then can feel the pain. When walking briskly there is pain after a few minutes or sometimes right away. Pain SLS. Delayed pain onset with prolonged standing, either later in the day or the next day. At night if moving in bed (rolling to side) feels pain. No significant history of pain with first . Prior Treatments and Tests Currently has UTI and is using an [id number] medication, and adding melaleuca oil. Developmental History Developmental History 07/01/23-vaginal of son, 9#, 4 oz, minor tearing not requiring stitches. 2010-vaginal of son, 8#, 6oz. Big tear with delivery Treatment Goals Patient/Caregiver Goals Pt goals: Eliminate pelvic pain with crossing legs, walking. Start light exercise (walking w/o urinary leakage). Start back to exercise ( walking) Personal Factors Other Personal Factors That May Effect Frequent UTI's. Therapy/Recovery PT-OP-C Subjective Start: 10/08/23 19:49 Freq: Status: Active Protocol: Document 02/14/24 11:19 LRN (Rec: 02/14/24 12:28 LRN [id number]) OP-PT Subjective Patient Comments Patient Comments No infections at this time. States she went hiking over weekend so now has pain in bilteral Gluteals (below Sacral border). Soreness (ms fatigue) in low back and inner thighs for a couple of days after the last session. PT-OP-I Pelvic Floor Start: 10/08/23 19:49 Freq: Status: Active Protocol: Document 10/11/23 11:27 LRN (Rec: 10/11/23 12:22 LRN [id number]) Pelvic Floor Assessment Urine Urinary Symptoms Pain Other Urinary Symptoms Frequent urinary infections, 8x in the last year (currently with UTI) Leakage Size Large Leakage Cause Exercise Other Leakage Causes Urinary leakage with exercise, not on a daily basis. Voiding Frequency 10 Nocturia 2-3x Bowel Bowel Surgery No: Pt denies constipation Bowel Symptoms Pain Pelvic Clock Pelvic Clock 12-3 Tenderness Pelvic Clock 3-6 Tenderness Pelvic Clock 6-9 Tenderness Pelvic Clock 9-12 Tenderness Prolapse Cystocele Grade 1 Perineal Descent Resting Absent Contraction Ability Voluntary Contraction Moderate Voluntary Relaxation Moderate Manual Muscle Testing Left 3 Manual Muscle Testing Right 2 Manual Muscle Testing Anterior 3 Manual Muscle Testing Posterior 2 Muscle Endurance (Seconds) 4 Number of Quick Contractions In 10 9 Seconds Comments Pelvic Floor Comments Notable redness of Labia minora and vaginal. PT-OP-J Posture/Palpation/Skin Start: 10/08/23 19:49 Freq: Status: Active Protocol: Document 12/17/23 13:07 LRN (Rec: 12/17/23 13:56 LRN [id number]) Palpation Assessment Location Abdomen Palpation Location Abdomen DR Palpation Details Umbilicus 2 above: Closed Umbilicus 1 above: 0.5 finger widths, very, very shallow Umbilicus Umbilicus: 1 below: Closed Umbilicus: 2 below: Closed Umbilicus: 3 below: Closed. PT-OP-K Range of Motion Start: 10/08/23 19:49 Freq: Status: Active Protocol: Document 11/18/23 13:00 LRN (Rec: 11/18/23 13:50 LRN [id number]) Hip Goniometric Range of Motion Hip Right Passive Testing Position Supine Abduction 30 Left Passive Testing Position Supine Abduction 30 PT-OP-M Strength Start: 10/08/23 19:49 Freq: Status: Active Protocol: Document 10/11/23 11:27 LRN (Rec: 10/11/23 12:22 LRN [id number]) Trunk Strength Trunk Manual Muscle Testing Core Stabilization Lacks core stability with hip ext and AB/AD Hip Strength Hip Manual Muscle Testing Right Adduction 2+ Poor+ External Rotation 3 Fair Comments Lower anterior pelvic pain with MMT. Left Extension (S1) 4+ Good+ External Rotation 3 Fair Comments Lower anterior pelvic pain with MMT. PT-OP-Q Treatments Start: 10/08/23 19:49 Freq: Status: Active Protocol: Document 02/14/24 11:19 LRN (Rec: 02/14/24 12:28 LRN [id number]) Therapeutic Exercises Supine Exercises Trunk rot Supine Exercise Name Trunk rot - kelsie & isotonic ( manual resistance) Side bilateral Comments Tried resistance to knee rolls , but arm swings & hand/knee push better. Sitting Exercises Deep Breathing Sitting Exercise Name Regular breathing for PF stretch w/inhale & Kegel w/ exhale Reps/Minutes 5' Comments Pt able to feel PF contract/ relax after training. Standing Exercises Kelsie Trunk Rot Standing Exercise Name Side Step outs, holding TB at chest. Equipment Used L2 Reps/Minutes 3x each Paloff Press Standing Exercise Name Paloff Press Side bilateral Equipment Used L2 Reps/Minutes 10x2, 15x1 each Comments Cuing for TA tightening/ rotators Trunk Rot Standing Exercise Name Trunk Rot strengthening Side bilateral Equipment Used Lev 2 TB Reps/Minutes 17' Comments Cuing to keep pelvis stable and draw ribs inward Manual Therapy Treatment Soft Tissue Mobilization PF Body Location Internal PF stretching (2-4 O' Clock) Mobilization Type Sustained Pressure Body Position Hooklying Comments Pt labia Minor tissue redness with some discomfort on palpation. Self-Care/Home Management Treatment Education Other Education Discussed POC and extension date, last visit date, and further ex for core stab and recommending no bicycle or plank strengthening exercises. Had a lengthy discussion of pt improving awareness of abdominal tightening (rectus and rotators) and PF tightening and relaxation and observations for determining whether urinary leakage may be due to PF tightness or weakness and subsequent ex's appropriate for each condition . PT-OP-T Assessment and Plan Start: 10/08/23 19:49 Freq: Status: Active Protocol: Document 02/14/24 11:19 LRN (Rec: 02/14/24 12:28 LRN [id number]) Physical Therapy Assessment Goals Five Impairment Pubic symphysis pain with pressure. Jail Goal (LTG) Improve pelvic stability to decrease pubic symphysis discomfort/sensitivity. 02/04/24: Tenderness present rated 3/10 that is sporadic depending on position she is in. With a bad position pain is 5-6/10. LTG Duration 8wks-03/31/24 improved on Three Impairment PF pain limiting ability to return to prior level of function of exercise. Impairment Pelvic Floor pain with walking and crossing legs. Short Term Goal (STG) Eliminate pelvic pain with crossing legs and walking. 12/06/23: Walking-No pain. 12/17/23: Must assist R leg to cross, then has pain in groin that is dull achy. 12/31/23: R inner thigh pain when crossing legs. 02/04/24: Walking the past week more painful than previous weeks. STG Duration 3 wks-02/25/24 progressing 12/31/23 (pain only with crossing legs ) Jail Goal (LTG) Start light exercise (walking w/o urinary leakage). Start back to exercise walking on level w/o PF pain. 12/06/23: Walking and no urinary leakage w/o PF pain on flat areas. Going uphill sometimes and on slant has PF pain, might have leakage, but might be sweat. 12/17/23: Doesn't think she leaks with walking, only sweats. 02/04/24: Pain w/walking mostly on R inner thigh. LTG Duration 8wks-03/31/24 12/17/23: Goal partially met (need walking w/o PF pn) One Impairment Pt lacks an independent self care HEP. Short Term Goal (STG) Pt educated in proper transfers to lessen core abdominal pressure. 11/01/12: Pt educated in log roll transfer for DR protection, with exhale on TA tightening. STG Duration (11/01/23: MET GOAL) Title Searcher Goal (LTG) Pt will be independent in a self care HEP for PF strengthening. 10/14/23: HEP: PF/hip stretch: Piriformis stretch ( Knee to opp shdr), Wag the Tail, Happy Baby pose. 11/18/23: HEP: hip stretch ( R hip AD, ER, flexors) 01/28/24: HEP: Kelsie and active resisted trunk rot strengthening 02/14/24: I/S pt in Trunk rot strengthening: Standing ( step outs, arm press outs, upper trunk rot; Supine: Trunk rot - kelsie hands/knees press satish & opposite sides; & isotonic (manual resistance) of arm swings (knee swings not as effective); sitting normal breathing for PF relax/ lift. LTG Duration 8wks-03/31/24 progressed Assessment Summary Assessment 33 yo post for ?IC rehab, PF tightness rehab, Pubic Symphysis Dysfunction Rehab. Pt has difficulty tania her trunk rotators ; therefore demmonstrates ability with isometrics, not with active trunk rot. Pt PF strength is good, but asymmetrical in strength when engaging her abdominal and gluteal muscles. More imbalance with gluteal tightening. Pt tenderness today only at 2-4 of PF clock that released without difficulty; therefore wand for PF stretching was not needed. Pt had poor awareness of trunk rotators but improved after different ex's and multiple positions (stand & sup) for strengthening. Physical Therapy Plan Frequency and Duration Frequency of Treatment 1x/Week Duration of treatment (weeks) 8 Plan of Care Start Date 02/04/24 Plan of Care End Date 03/31/24 Next Visit Focus/Plan Next Note Type Treatment Note Next Visit Plan 2 Visits left, 2-4 wks between treatments. Check for active PF trP's (if tight/tender again, home program for wand stretch) and discuss methods to decrease redness of labia minora if painful/red. Focus on core/pubic stab. strengthen trunk rotators, and core/hip (focus AD ?R) strengthening. NEXT: Review PF relaxation with daily activities (proper squatting and lifting, sit to stand, and moving in bed). Ex/HEP: trunk stretches (R rot & R SB). Pelvic stab. Kegel (without use of substitute muscles) with focus on PF relaxation. POC: ?IC rehab, PF tightness rehab, Pubic Symphasis Dysfunction Rehab, core strengthening.
--- NOTE | 2024-03-09 12:40 | PT.OTN ---
Current Diagnoses Muscle weakness (generalized) (03/09/24) Stress incontinence (female) (male) (03/09/24) Other female genital prolapse (03/09/24) Pelvic and perineal pain (03/09/24) Physical Therapy Treatment Note PT-OP-A Visit Information Start: 10/08/23 19:49 Freq: Status: Active Protocol: Document 03/09/24 11:23 LRN (Rec: 03/09/24 12:39 LRN [id number]) Out-Patient Physical Therapy Visit Information Visit Information Visit Type Treatment Note Visit Start Time Visit Stop Time 12:08 Visit Number 10/10 Evaluation Information Evaluation Date 10/11/23 Precautions Precautions Parathyroid excised 10/15/22, current UTI. PT-OP-B Current Condition Start: 10/08/23 19:49 Freq: Status: Active Protocol: Document 10/11/23 11:27 LRN (Rec: 10/11/23 12:22 LRN [id number]) Current Condition History of Current Condition Onset Date 07/01/23 delivery of son (~10 wks post ) Current Complaints Pelvic pain daily. History of Current Condition First week after having baby had to go to hospital a lot, so had very little rest. Now having pain in the pelvic floor pain. Some days pain is all day and some days only with certain movements. If walking on uneven ground then can feel the pain. When walking briskly there is pain after a few minutes or sometimes right away. Pain SLS. Delayed pain onset with prolonged standing, either later in the day or the next day. At night if moving in bed (rolling to side) feels pain. No significant history of pain with first . Prior Treatments and Tests Currently has UTI and is using an [id number] medication, and adding melaleuca oil. Developmental History Developmental History 07/01/23-vaginal of son, 9#, 4 oz, minor tearing not requiring stitches. 2010-vaginal of son, 8#, 6oz. Big tear with delivery Treatment Goals Patient/Caregiver Goals Pt goals: Eliminate pelvic pain with crossing legs, walking. Start light exercise (walking w/o urinary leakage). Start back to exercise ( walking) Personal Factors Other Personal Factors That May Effect Frequent UTI's. Therapy/Recovery PT-OP-C Subjective Start: 10/08/23 19:49 Freq: Status: Active Protocol: Document 03/09/24 11:23 LRN (Rec: 03/09/24 12:39 LRN [id number]) OP-PT Subjective Patient Comments Patient Comments Leaking now. Travelled for 10 days had wet panties. Hasn't had stiffness in R inner thigh and occasional pain. States no longer having white discharge. No longer having cramping and discomfort in lower abdomen. PT-OP-I Pelvic Floor Start: 10/08/23 19:49 Freq: Status: Active Protocol: Document 03/09/24 11:23 LRN (Rec: 03/09/24 12:39 LRN [id number]) Pelvic Floor Assessment Prolapse Prolapse Comments No significant cystocele. Contraction Ability Manual Muscle Testing Left 3 Manual Muscle Testing Right 3 Manual Muscle Testing Anterior 3 Manual Muscle Testing Posterior 3 Muscle Endurance (Seconds) 4 Number of Quick Contractions In 10 9 Seconds PT-OP-J Posture/Palpation/Skin Start: 10/08/23 19:49 Freq: Status: Active Protocol: Document 12/17/23 13:07 LRN (Rec: 12/17/23 13:56 LRN [id number]) Palpation Assessment Location Abdomen Palpation Location Abdomen DR Palpation Details Umbilicus 2 above: Closed Umbilicus 1 above: 0.5 finger widths, very, very shallow Umbilicus Umbilicus: 1 below: Closed Umbilicus: 2 below: Closed Umbilicus: 3 below: Closed. PT-OP-K Range of Motion Start: 10/08/23 19:49 Freq: Status: Active Protocol: Document 11/18/23 13:00 LRN (Rec: 11/18/23 13:50 LRN [id number]) Hip Goniometric Range of Motion Hip Right Passive Testing Position Supine Abduction 30 Left Passive Testing Position Supine Abduction 30 PT-OP-M Strength Start: 10/08/23 19:49 Freq: Status: Active Protocol: Document 10/11/23 11:27 LRN (Rec: 10/11/23 12:22 LRN [id number]) Trunk Strength Trunk Manual Muscle Testing Core Stabilization Lacks core stability with hip ext and AB/AD Hip Strength Hip Manual Muscle Testing Right Adduction 2+ Poor+ External Rotation 3 Fair Comments Lower anterior pelvic pain with MMT. Left Extension (S1) 4+ Good+ External Rotation 3 Fair Comments Lower anterior pelvic pain with MMT. PT-OP-Q Treatments Start: 10/08/23 19:49 Freq: Status: Active Protocol: Document 03/09/24 11:23 LRN (Rec: 03/09/24 12:39 LRN [id number]) Therapeutic Exercises Supine Exercises Kegel Supine Exercise Name Kegels around the clock: Quick & Long holds Reps/Minutes 20' Standing Exercises Paloff Press Standing Exercise Name Kegel w/Paloff Press Side bilateral Equipment Used L3 Reps/Minutes 5' Comments Cuing for Kegel long hold & TA tightening/rotators Trunk Rot Standing Exercise Name Trunk rot w/10SH PF tightening Side bilateral Equipment Used Lev 3 TB Reps/Minutes 5' (5x each) Comments Cuing for Kegel long hold & TA tightening/rotators Other Exercises PF holding w/stairs Reps/Minutes 4' PF holding w/walking Reps/Minutes 3' Self-Care/Home Management Treatment Education Patient Education Home Exercise Program Other Education Reviewed POC and scheduling for last appt. Reviewed PF relaxation with daily activities (proper squatting and lifting, sit to stand, and moving in bed). Activities Self-Care/Home Management Activities Issued & reviewed HEP: Functional Pelvic Brace ex ( Long hold Kegel/TA w/walking and stairs). PT-OP-T Assessment and Plan Start: 10/08/23 19:49 Freq: Status: Active Protocol: Document 03/09/24 11:23 LRN (Rec: 03/09/24 12:39 LRN [id number]) Physical Therapy Assessment Goals Five Impairment Pubic symphysis pain with pressure. Fpc Goal (LTG) Improve pelvic stability to decrease pubic symphysis discomfort/sensitivity. 02/04/24: Tenderness present rated 3/10 that is sporadic depending on position she is in. With a bad position pain is 5-6/10. 03/09/24: No lower abdominal pain. LTG Duration (02/07/24: MET GOAL) Four Impairment Diastasis Rectus (DR) Impairment Umbilicus 2 above: Closed Umbilicus 1 above: 1.5 finger widths, shallow Umbilicus Umbilicus: 1 below: 1.5 finger widths, shallow Umbilicus: 2 below: 0.5 finger widths, shallow Umbilicus: 3 below: Closed. Short Term Goal (STG) Pt educated in self care to reduce DR (kristina support for transfers). 11/08/23: Pt educated in use of towel for transfers to protect DR. STG Duration (11/08/23: MET GOAL) Fpc Goal (LTG) Decrease signs of DR. 12/06/23: Decrease in DR opening. 12/17/23: DR almost closed. Open only 1 above umbilicus: 0.5 fingerwidth. LTG Duration (12/17/23: MET GOAL) Three Impairment PF pain limiting ability to return to prior level of function of exercise. Impairment Pelvic Floor pain with walking and crossing legs. Short Term Goal (STG) Eliminate pelvic pain with crossing legs and walking. 12/06/23: Walking-No pain. 12/17/23: Must assist R leg to cross, then has pain in groin that is dull achy. 12/31/23: R inner thigh pain when crossing legs. 02/04/24: Walking the past week more painful than previous weeks. 03/09/24: No stiffness in R inner thigh, has occasional pain. STG Duration 3 wks-02/25/24 progressing 02/07/24 (pain only with crossing legs ) Rn Cvor Goal (LTG) Start light exercise (walking w/o urinary leakage). Start back to exercise walking on level w/o PF pain. 12/06/23: Walking and no urinary leakage w/o PF pain on flat areas. Going uphill sometimes and on slant has PF pain, might have leakage, but might be sweat. 12/17/23: Doesn't think she leaks with walking, only sweats. 02/04/24: Pain w/walking mostly on R inner thigh. 02/07/24: Occasional R inner thigh pain. Pt noting urinary leakage walking and carring son. LTG Duration 8wks-03/31/24 03/09/24: Goal partially met (need walking w/o leaking) Two Impairment Urinary incontinence Impairment Urinary leakage with light and vigorous activity (brisk walking or on uneven ground). Short Term Goal (STG) Pt will be educated in urinary delay techinque. 11/08/23: Pt educated in urinary delay technique STG Duration (11/08/23: MET GOAL) Fpc Goal (LTG) Improve control over urinary incontinence with elimination of urinary leakage with walking. 12/06/23: Possible urinary leakage with walking fast and sometimes on inclines or slant on road. 01/20/24: No urinary leakage with walking and on inclines. LTG Duration (12/17/23: MET GOAL) One Impairment Pt lacks an independent self care HEP. Short Term Goal (STG) Pt educated in proper transfers to lessen core abdominal pressure. 11/01/12: Pt educated in log roll transfer for DR protection, with exhale on TA tightening. STG Duration (11/01/23: MET GOAL) Fpc Goal (LTG) Pt will be independent in a self care HEP for PF strengthening. 10/14/23: HEP: PF/hip stretch: Piriformis stretch ( Knee to opp shdr), Wag the Tail, Happy Baby pose. 11/18/23: HEP: hip stretch ( R hip AD, ER, flexors) 01/28/24: HEP: Kelsie and active resisted trunk rot strengthening 02/14/24: I/S pt in Trunk rot strengthening: Standing ( step outs, arm press outs, upper trunk rot; Supine: Trunk rot - kelsie hands/knees press satish & opposite sides; & isotonic (manual resistance) of arm swings (knee swings not as effective); sitting normal breathing for PF relax/ lift. 03/09/24: HEP: Functioinal Pelvic Brace ex (Long hold Kegel/TA w/walking and stairs) . LTG Duration 8wks-03/31/24 progressed Assessment Summary Assessment 33 yo post for ?IC rehab, PF tightness rehab, Pubic Symphysis Dysfunction Rehab. Today pt had no PF trP' s or lower abdominal tenderness. Her vaginal canal is bright red, but no tenderness was noted. She now reports urinary leakage with gait, but also admits not doing any PF strengthening. The pt will need to contine with strengthening until after 6 months post to strengthen PF for control of urinary leaking. She demonstrates strong PF contractions followed by relaxation. She has low endurance and is only able to hold a strong contraction for 3-4 secs. The pt is aware and will work on long hold Kegels with functional activities ( walk/stairs), and strengthening exs. Physical Therapy Plan Frequency and Duration Frequency of Treatment 1x/Week Duration of treatment (weeks) 8 Plan of Care Start Date 02/04/24 Plan of Care End Date 03/31/24 Next Visit Focus/Plan Next Note Type Discharge Summary Next Visit Plan DC next visit due to insurance limit per pt choice due to not able to financially continue. Discuss methods to decrease redness of labia minora if painful/red (pt to seek MD assessment). Focus on hip/ ( focus AD ?R)/core/pubic strengthening. Check: Kegel (without use of substitute muscles) w/PF relaxation. If need HEP: trunk stretches (R rot & R SB) . POC: ?IC rehab, PF tightness rehab, Pubic Symphasis Dysfunction Rehab, core strengthening.
--- NOTE | 2024-07-24 08:31 | PT.OPDS ---
Current Diagnoses Muscle weakness (generalized) (03/09/24) Stress incontinence (female) (male) (03/09/24) Other female genital prolapse (03/09/24) Pelvic and perineal pain (03/09/24) Visit Care Team Role Provider Type Maribel Peterson MD Family Provider Physician Primary Care Provider Specialty: Family Practice Address: [address] [place] [address], [address], [place], [address] Email: [email or web address] Rehana Valles PA-C Attending Provider Advanced Assistant Editor Referring Provider Specialty: Medical Address: [address] [place] [address], [address], [place], [address] Email: [email or web address] Visit Number Visit Number 10/10 Discharge Summary PT-OP-B Current Condition Start: 10/08/23 19:49 Freq: Status: Active Protocol: Document 10/11/23 11:27 LRN (Rec: 10/11/23 12:22 LRN [id number]) Current Condition History of Current Condition Onset Date 07/01/23 delivery of son (~10 wks post ) Current Complaints Pelvic pain daily. History of Current Condition First week after having baby had to go to hospital a lot, so had very little rest. Now having pain in the pelvic floor pain. Some days pain is all day and some days only with certain movements. If walking on uneven ground then can feel the pain. When walking briskly there is pain after a few minutes or sometimes right away. Pain SLS. Delayed pain onset with prolonged standing, either later in the day or the next day. At night if moving in bed (rolling to side) feels pain. No significant history of pain with first . Prior Treatments and Tests Currently has UTI and is using an [id number] medication, and adding melaleuca oil. Developmental History Developmental History 07/01/23-vaginal of son, 9#, 4 oz, minor tearing not requiring stitches. 2010-vaginal of son, 8#, 6oz. Big tear with delivery Treatment Goals Patient/Caregiver Goals Pt goals: Eliminate pelvic pain with crossing legs, walking. Start light exercise (walking w/o urinary leakage). Start back to exercise ( walking) Personal Factors Other Personal Factors That May Effect Frequent UTI's. Therapy/Recovery PT-OP-C Subjective Start: 10/08/23 19:49 Freq: Status: Active Protocol: Document 03/09/24 11:23 LRN (Rec: 03/09/24 12:39 LRN [id number]) OP-PT Subjective Patient Comments Patient Comments Leaking now. Travelled for 10 days had wet panties. Hasn't had stiffness in R inner thigh and occasional pain. States no longer having white discharge. No longer having cramping and discomfort in lower abdomen. PT-OP-I Pelvic Floor Start: 10/08/23 19:49 Freq: Status: Active Protocol: Document 03/09/24 11:23 LRN (Rec: 03/09/24 12:39 LRN [id number]) Pelvic Floor Assessment Prolapse Prolapse Comments No significant cystocele. Contraction Ability Manual Muscle Testing Left 3 Manual Muscle Testing Right 3 Manual Muscle Testing Anterior 3 Manual Muscle Testing Posterior 3 Muscle Endurance (Seconds) 4 Number of Quick Contractions In 10 9 Seconds PT-OP-J Posture/Palpation/Skin Start: 10/08/23 19:49 Freq: Status: Active Protocol: Document 12/17/23 13:07 LRN (Rec: 12/17/23 13:56 LRN [id number]) Palpation Assessment Location Abdomen Palpation Location Abdomen DR Palpation Details Umbilicus 2 above: Closed Umbilicus 1 above: 0.5 finger widths, very, very shallow Umbilicus Umbilicus: 1 below: Closed Umbilicus: 2 below: Closed Umbilicus: 3 below: Closed. PT-OP-K Range of Motion Start: 10/08/23 19:49 Freq: Status: Active Protocol: Document 11/18/23 13:00 LRN (Rec: 11/18/23 13:50 LRN [id number]) Hip Goniometric Range of Motion Hip Right Passive Testing Position Supine Abduction 30 Left Passive Testing Position Supine Abduction 30 PT-OP-M Strength Start: 10/08/23 19:49 Freq: Status: Active Protocol: Document 10/11/23 11:27 LRN (Rec: 10/11/23 12:22 LRN [id number]) Trunk Strength Trunk Manual Muscle Testing Core Stabilization Lacks core stability with hip ext and AB/AD Hip Strength Hip Manual Muscle Testing Right Adduction 2+ Poor+ External Rotation 3 Fair Comments Lower anterior pelvic pain with MMT. Left Extension (S1) 4+ Good+ External Rotation 3 Fair Comments Lower anterior pelvic pain with MMT. PT-OP-T Assessment and Plan Start: 10/08/23 19:49 Freq: Status: Active Protocol: Document 07/24/24 08:17 LRN (Rec: 07/24/24 08:31 LRN [id number]) Physical Therapy Assessment Goals Five Impairment Pubic symphysis pain with pressure. Retail Sales Specialist Goal (LTG) Improve pelvic stability to decrease pubic symphysis discomfort/sensitivity. 02/04/24: Tenderness present rated 3/10 that is sporadic depending on position she is in. With a bad position pain is 5-6/10. 03/09/24: No lower abdominal pain. LTG Duration (02/07/24: MET GOAL) Four Impairment Diastasis Rectus (DR) Impairment Umbilicus 2 above: Closed Umbilicus 1 above: 1.5 finger widths, shallow Umbilicus Umbilicus: 1 below: 1.5 finger widths, shallow Umbilicus: 2 below: 0.5 finger widths, shallow Umbilicus: 3 below: Closed. Short Term Goal (STG) Pt educated in self care to reduce DR (towel support for transfers). 11/08/23: Pt educated in use of towel for transfers to protect DR. STG Duration (11/08/23: MET GOAL) Retail Sales Specialist Goal (LTG) Decrease signs of DR. 12/06/23: Decrease in DR opening. 12/17/23: DR almost closed. Open only 1 above umbilicus: 0.5 fingerwidth. LTG Duration (12/17/23: MET GOAL) Three Impairment PF pain limiting ability to return to prior level of function of exercise. Impairment Pelvic Floor pain with walking and crossing legs. Short Term Goal (STG) Eliminate pelvic pain with crossing legs and walking. 12/06/23: Walking-No pain. 12/17/23: Must assist R leg to cross, then has pain in groin that is dull achy. 12/31/23: R inner thigh pain when crossing legs. 02/04/24: Walking the past week more painful than previous weeks. 03/09/24: No stiffness in R inner thigh, has occasional pain. STG Duration 3 wks-02/25/24 progressing 02/07/24 (pain only with crossing legs ) Retail Sales Specialist Goal (LTG) Start light exercise (walking w/o urinary leakage). Start back to exercise walking on level w/o PF pain. 12/06/23: Walking and no urinary leakage w/o PF pain on flat areas. Going uphill sometimes and on slant has PF pain, might have leakage, but might be sweat. 12/17/23: Doesn't think she leaks with walking, only sweats. 02/04/24: Pain w/walking mostly on R inner thigh. 02/07/24: Occasional R inner thigh pain. Pt noting urinary leakage walking and carring son. LTG Duration 8wks-03/31/24 03/09/24: Goal partially met (need walking w/o leaking) Two Impairment Urinary incontinence Impairment Urinary leakage with light and vigorous activity (brisk walking or on uneven ground). Short Term Goal (STG) Pt will be educated in urinary delay techinque. 11/08/23: Pt educated in urinary delay technique STG Duration (11/08/23: MET GOAL) Retail Sales Specialist Goal (LTG) Improve control over urinary incontinence with elimination of urinary leakage with walking. 12/06/23: Possible urinary leakage with walking fast and sometimes on inclines or slant on road. 01/20/24: No urinary leakage with walking and on inclines. LTG Duration (12/17/23: MET GOAL) One Impairment Pt lacks an independent self care HEP. Short Term Goal (STG) Pt educated in proper transfers to lessen core abdominal pressure. 11/01/12: Pt educated in log roll transfer for DR protection, with exhale on TA tightening. STG Duration (11/01/23: MET GOAL) Mcfp Goal (LTG) Pt will be independent in a self care HEP for PF strengthening. 10/14/23: HEP: PF/hip stretch: Piriformis stretch ( Knee to opp shdr), Wag the Tail, Happy Baby pose. 11/18/23: HEP: hip stretch ( R hip AD, ER, flexors) 01/28/24: HEP: Kelsie and active resisted trunk rot strengthening 02/14/24: I/S pt in Trunk rot strengthening: Standing ( step outs, arm press outs, upper trunk rot; Supine: Trunk rot - kelsie hands/knees press satish & opposite sides; & isotonic (manual resistance) of arm swings (knee swings not as effective); sitting normal breathing for PF relax/ lift. 03/09/24: HEP: Functioinal Pelvic Brace ex (Long hold Kegel/TA w/walking and stairs) . LTG Duration 8wks-03/31/24 progressed Assessment Summary Assessment Pt is a 33 yo female, post being seen for prolapse and stress incontinence rehab , PF tightness, and Pubic Symphysis Dysfunction. The pt was seen for 11 of 12 visits over a 5 month period and was not able to be seen for her last visit due to scheduling difficulties and ending of her plan of care. The pt was last seen 03/09/24 and at that time was still and her vaginal canal was of bright red coloration (note: pt had reported history of multiple vaginal infections). Her PF strength was good, but her ability to sustain a PF contraction was for 3-4 secs. The pt is being discharged from therapy and will not be seen for her final visit due to she is no longer within her plan of care date. The pt is expected to achieve greater PF strength/ endurance ~6 monts post- ; therefore if further therapy is needed beyond that time we would be more than happy to work with this pleasant individual again when she is eligible for further therapy. Physical Therapy Plan Discharge Physical Therapy Discharge Comments See assessment above. Thank you for your referral.
== END 2024-08-04 10:36 | disposition home or self-care (01) ==
LOC: PHYS 11:15
PROVIDERS: Family Provider Family Medicine; PCP Family Medicine; Referring Provider Physician Assistant; Visit Provider Physician Assistant
DX: N81.89 Other female genital prolapse (principal); N39.3 Stress incontinence (female) (male); M62.81 Muscle weakness (generalized); R10.2 Pelvic and perineal pain
CPT/HCPCS: 97110; 97140; 97162; 97530; 97535

== ENCOUNTER → 2024-03-17 14:44 | Outpatient (CLI) | payer OTHER, MEDICAID, SELFPAY | PROVIDERS: Family Provider Family Medicine; PCP Family Medicine; Visit Provider Family Medicine | DX: N94.9 Unspecified condition associated with female genital organs and menstrual cycle (principal) | CPT/HCPCS: 81002; 87210 ==

== ENCOUNTER → 2025-09-04 15:41 | Outpatient (CLI) | payer OTHER, SELFPAY ==
[2025-09-04 19:26] LABS: Appearance Urine UA CLEAR; Bilirubin Urine UA NEGATIVE (NEGATIVE); Color Urine UA YELLOW; Glucose Urine UA NEGATIVE (Negative); Ketones Urine UA 1+ (NEGATIVE); Leukocyte Esterase Urine UA NEGATIVE (NEGATIVE); Nitrite Urine UA NEGATIVE (Negative); Occult Blood Urine UA NEGATIVE (Negative); Protein Urine UA NEGATIVE (Negative); Specific Gravity Urine UA 1.025 (1.000-1.035); Urobilinogen Urine UA 0.2 E.U./dL (0.2)
[2025-09-04 19:39] LABS: pH Urine UA 5.5 (4.5-8.0)
[2025-09-04 19:41] LABS: Culture Indicated Urine Cult Not Indicated
== END ==
PROVIDERS: PCP Family Medicine; Visit Provider Obstetrics & Gynecology
DX: O09.899 Supervision of other high risk pregnancies, unspecified trimester (principal); R39.89 Other symptoms and signs involving the genitourinary system; Z87.440 Personal history of urinary (tract) infections
CPT/HCPCS: 81001; 87798

== ENCOUNTER → 2025-09-04 16:13 | Outpatient (CLI) | payer OTHER, SELFPAY ==
[2025-09-04 17:15] LABS: Add Manual Diff / Slide Review NO; Hematocrit 39.4 % (36-46); Hemoglobin 13.6 g/dL (12.0-16.0); Lymphocytes Absolute Auto 2000 /uL (1100-4500); Mean Corpuscular HGB Conc 34.6 % (30-36); Mean Corpuscular Hemoglobin 30.6 PG (26-34); Mean Corpuscular Volume 88.5 fL (80-100); Platelet Count 211 X10^3/uL (150-400)
[2025-09-04 17:23] LABS: Hemoglobin A1C% w Est Avg Glu 5.5 % (4.0-6.0)
[2025-09-04 17:31] LABS: Natera Collection Specimen Collected
[2025-09-04 17:52] LABS: Alanine Aminotransferase 21 IU/L (<35); Albumin 4.0 g/dL (3.5-5.0); Albumin Globulin Ratio 1.4 (1.0-2.8); Alkaline Phosphatase 52 U/L (38-126); Blood Urea Nitrogen 13 mg/dL (7-17); Calcium 10.5 mg/dL (8.4-10.2); Carbon Dioxide 21 mmol/L (22-32); Chloride 105 mmol/L (98-107); Estimated Glomerular Filt Rate > 60 mL/min (>60); Globulin 2.8 g/dL (1.7-4.1); Glucose 92 mg/dL (70-99); HEMOLYSIS < 15 (0-50); Potassium 4.1 mmol/L (3.4-5.1); Sodium 132 mmol/L (137-145); Total Protein 6.8 g/dL (6.3-8.2); Uric Acid 5.3 mg/dL (2.5-6.2)
[2025-09-04 18:23] LABS: Hepatitis B Surface Antigen NEGATIVE s/c (NEGATIVE)
[2025-09-04 18:40] LABS: HIV 1 & 2 Ab/Ag 4th Gen Combo NEGATIVE (NEGATIVE); Hep C Virus Ab w/Reflex Quant NEGATIVE s/c (NEGATIVE)
== END ==
PROVIDERS: PCP Family Medicine; Referring Provider Obstetrics & Gynecology; Visit Provider Obstetrics & Gynecology
DX: O09.899 Supervision of other high risk pregnancies, unspecified trimester (principal); O99.891 Other specified diseases and conditions complicating pregnancy; R39.89 Other symptoms and signs involving the genitourinary system; Z98.890 Other specified postprocedural states; Z3A.17 17 weeks gestation of pregnancy; Z87.440 Personal history of urinary (tract) infections
CPT/HCPCS: 36415; 80053; 80055; 81001; 83036; 83970; 84550; 86787; 86803; 86850; 86900; 86901; 87389; 87798

== ENCOUNTER → 2025-10-02 13:42 | Outpatient (CLI) | payer OTHER, SELFPAY ==
--- NOTE | 2025-10-02 13:43 | DI.US.S_ITS ---
PROCEDURE: US OB >= 14 WEEKS FETUS INDICATIONS: ANATOMY OUTSIDE/PRIOR DATING DATA: Last menstrual period (LMP): 05/04/2025 LMP-based estimated date of delivery (HENRIET[place]): 02/08/2026 TECHNIQUE: Real-time scanning was performed of the fetus, with image documentation and biometric measurements. Endovaginal scanning: Not performed. COMPARISON: None. FINDINGS: General: A single living intrauterine gestation is present. Presentation: Breech. Placenta: Placental position is anterior, without previa. Amniotic fluid index: 17.0 cm, normal range is 5-24 cm. Single deepest vertical pocket is 6.4 cm. heart rate: 153 beats per minute. Maternal cervical canal: Closed and measures 4.6 cm long. Normal lower limit is 2.5 cm. biometrics: Biparietal diameter: 5.0 cm, 21 weeks, 0 day. Head circumference: 18.6 cm, 21 weeks, 0 day. Abdominal circumference: 17.1 cm, 22 weeks, 0 day. Femur length: 3.6 cm, 21 weeks, 3 days. Clinically estimated gestational age: 21 weeks, 4 days. Composite gestational age from present scan: 21 weeks, 3 days. Estimated weight and percentile: 440 grams, 48 percent. Anatomic survey: Neuro: Ventricles are non-dilated at less than 10 mm. Cisterna magna is normal at 3-11 mm. Cerebellum is normal in size and morphology. Nuchal skin fold: Normal at less than 6 mm between 14-21 weeks gestational age. Face: Nose and lips, facial profile are normal. Spine: No evidence for spina bifida. Heart: 4-chambered heart is present, with normal ventricular outflow tracts. Diaphragm: Diaphragm is intact. Stomach: Left-sided stomach is present. Kidneys: No hydronephrosis. Normal is less than 5 mm in 2nd trimester, less than 7 mm in 3rd trimester. Cord: 3-vessel cord has orthotopic insertion. Bladder: Normal in size. Extremities: All 4 extremities identified. IMPRESSION: 1. Single live intrauterine gestation with fetus in breech presentation. heart rate is 153 beats per minute. Normal EMMA at 17.0 cm. 2. Estimated weight is at 48 percent. 3. Normal anatomic survey. We strive to produce accurate, complete, and clear reports of imaging services. To assist us in improving patient care, this report was composed using standard report templates and voice recognition software. Therefore, it may contain abnormal punctuation, insertions and/or omissions. Occasional wrong-word or sound-alike substitutions may occur. Though we review the report and make efforts to correct it, we do recommend that the report be read carefully in proper context to recognize any text inaccuracies. Dictated by: Jeremias Mckenzie M.D. on 10/03/2025 at 11:10 Approved by: Jeremias Mckenzie M.D. on 10/03/2025 at 11:12
== END ==
LOC: US 13:43
PROVIDERS: PCP Family Medicine; Referring Provider Emergency Medicine; Visit Provider Emergency Medicine
DX: O09.892 Supervision of other high risk pregnancies, second trimester (principal); Z3A.21 21 weeks gestation of pregnancy
CPT/HCPCS: 76811

== ENCOUNTER → 2025-10-03 17:13 | Outpatient (CLI) | payer OTHER, SELFPAY | PROVIDERS: PCP Family Medicine; Visit Provider Physician Assistant Medical | DX: O09.899 Supervision of other high risk pregnancies, unspecified trimester (principal); N89.8 Other specified noninflammatory disorders of vagina; R39.15 Urgency of urination | CPT/HCPCS: 87086; 87210 ==